=== PATIENT | male | born 1945 | race Caucasian/White ===

== ENCOUNTER → 2016-08-13 | Outpatient (CLI) | payer MEDICARE, OTHER ==
[2016-08-13 14:55] LABS: CREATININE RESULT 1.24 mg/dL (0.52-1.25)
== END ==
LOC: OD 13:06
PROVIDERS: ATTEND Orthopaedic Surgery
DX: M25.511 Pain in right shoulder (principal)
CPT/HCPCS: 36415; 82565

== ENCOUNTER → 2016-08-14 | Outpatient (CLI) | payer MEDICARE, OTHER | LOC: RAD 09:46 | PROVIDERS: ATTEND Orthopaedic Surgery | DX: M89.8X1 Other specified disorders of bone, shoulder (principal) ==

== ENCOUNTER 2016-11-10 08:07 | Day surgery (SDC) | payer MEDICARE, OTHER ==
[2016-10-21 11:26] LABS: HEMOGLOBIN 12.5 g/dL (13.5-17.0); HGB HCT DIFFERENCE 1.5; MEAN CORPUSCULAR HEMOGLOBIN 30.4 pg (27.0-33.4); MEAN CORPUSCULAR HGB CONC 34.7 g/dL (32.0-36.0); MEAN CORPUSCULAR VOLUME 88 fl (80-97); RED BLOOD COUNT 4.11 10^6/uL (4.35-5.55); WHITE BLOOD COUNT 6.5 10^3/uL (4.0-10.5)
[2016-10-21 11:29] LABS: PROTHROMBIN TIME 13.8 SEC (11.4-15.4)
[2016-10-21 11:30] LABS: PARTIAL THROMBOPLASTIN TIME 30.6 SEC (23.5-35.8)
[2016-10-21 11:52] LABS: ANION GAP 13 (5-19); BLOOD UREA NITROGEN 15 mg/dL (7-20); CALCIUM 9.6 mg/dL (8.4-10.2); CARBON DIOXIDE 31 mmol/L (22-30); CHLORIDE 101 mmol/L (98-107); CREATININE RESULT 1.08 mg/dL (0.52-1.25); GLUCOSE 88 mg/dL (75-110); SODIUM 145.4 mmol/L (137-145)
--- NOTE | 2016-10-21 14:19 | EKG REPORT ---
SEVERITY:- ABNORMAL ECG - ATRIAL-VENTRICULAR DUAL-PACED COMPLEXES : Confirmed by: Ananth Dodge MD 21-Oct-2016 14:18:06
[~2016-11-10 08:07] MED LIST: CEFAZOLIN 1 GM/D5W RTU 1 GM/50 ML RTUPB IV PRN; LACTATED RINGERS 1000 ML IV PRN; LIDOCAINE 0.5% INJ-PF (5 MG/ML) 50 ML SDV SUBCUT PRN; LIDOCAINE 1%/EPINEPHRINE INJ 20 ML VIAL ONE; SODIUM BICARBONATE 8.4% INJ 50 MEQ/50 ML DISP.SYRIN ONE
[2016-11-10 09:29] LABS: PROTHROMBIN TIME 14.4 SEC (11.4-15.4)
[2016-11-10 09:30] LABS: PARTIAL THROMBOPLASTIN TIME 31.9 SEC (23.5-35.8)
[2016-11-10] MEDS ORDERED: FENTANYL CITRATE INJ/PF 100 MCG/2 ML AMPUL ONE (10:15)
[2016-11-10] MEDS ORDERED: KETAMINE HCL INJ 500 MG/10 ML VIAL ONE (10:15)
[2016-11-10] MEDS ORDERED: MIDAZOLAM 2 MG/2 ML INJ ONE (10:15)
[2016-11-10] MEDS ORDERED: EPHEDRINE SULFATE INJ 50 MG/1 ML AMPULE ONE (10:16)
[2016-11-10] MEDS ORDERED: ACETAMINOPHEN 100 ML IV ONE (10:16)
[2016-11-10] MEDS ORDERED: PROPOFOL INJ 200 MG/20 ML VIAL IV ONE (10:16)
[2016-11-10] MEDS ORDERED: PROMETHAZINE HCL INJ 25 MG/1 ML VIAL IV PRN ×2 (11:30)
[2016-11-10] MEDS ORDERED: ONDANSETRON HCL INJ/PF 4 MG/2 ML SDV IV PRN (11:30)
[2016-11-10] MEDS ORDERED: FENTANYL CITRATE INJ/PF 100 MCG/2 ML AMPUL IV PRN ×3 (11:30)
[2016-11-10] MEDS ORDERED: DIPHENHYDRAMINE HCL 50 MG/ML VIAL IV PRN (11:30)
[2016-11-10] MEDS ORDERED: MORPHINE SULFATE 10 MG/ML INJ IV PRN (11:30)
[2016-11-10] MEDS ORDERED: MEPERIDINE HCL/PF INJ 25 MG/1 ML DISP.SYRIN IV PRN (11:30)
--- NOTE | 2016-11-10 11:56 | Operative Report ---
Operative Report DATE OF SURGERY: 11/10/16 PREOPERATIVE DIAGNOSIS: Basal cell carcinoma of the right knee POSTOPERATIVE DIAGNOSIS: Same OPERATION: Excision of basal cell carcinoma of the right knee with frozen section margin control and reconstruction with a rotation flap. SURGEON: SARWAT ESPINOZA ANESTHESIA: LMAC TISSUE REMOVED OR ALTERED: Basal cell carcinoma COMPLICATIONS: None ESTIMATED BLOOD LOSS: minimal PROCEDURE: Patient seen and was marked prior to being brought into the operating room. Patient was brought into the operating room and placed on the operating room table in a supine position. Patient was then prepped with a Betadine scrub and Betadine solution and draped in a sterile and aseptic manner. The area was then marked. 12 O'clock was marked towards the pretibial 3 O'clock was marked towards ankle 6:00 was marked towards the posterior calf 9:00 was marked towards the knee The area was then anesthetized with 1% lidocaine with epinephrine and bicarbonate for its anesthetic and hemostatic effects. The area was then excised and marked at 12:00. We had considered a primary closure but this would go against the natural relaxed skin tension lines. A primary closure would be too tight and would have increased chance of dehiscence. This will leave more of a scar so we decided to use a rotation flap reconstruction which would camouflage the scar better and take tension off of the closure so that would be less chances of complications. Then went ahead and outlined the flap and anesthetized it. Then incised the flap and developed a flap maintaining the subdermal plexus. Then we undermined 360 to allow for plate like scarring and minimize trap door deformity. Throughout the case hemostasis was achieved with the bipolar. We then sutured the flap into its new position Using 4-0 Vicryl for the subcutaneous and deep dermis. Skin was closed with a subcuticular stitch using 4-0 PDS with knots being tied on the outside. And 4-0 PDS suture was used for support and placed in the central area of the incision. We then applied tincture benzoin and Steri-Strips followed by a light pressure dressing. Patient was then reversed from anesthesia and taken to the [facility] for recovery. The patient tolerated well. There were no complications. Lesion size was approximately 1.7 x 1.7 please see pathology for actual size. Portions of this note may be dictated using [employer] voice recognition software. Occasional variations and spelling and vocabulary could be possible and are unintentional. Additionally, there is a chance that some errors may not be caught or corrected. Please notify the offer of any discrepancies noted or if any statements are unclear. Subjective: No complaints Objective: Vital signs stable afebrile No bleeding Dressing intact Assessment and plan: Doing well. Elevate the operative site. Resume medications. Take antibiotics for 1 day Follow-up Full instructions were given to the patient and family and they understand Portions of this note may be dictated using [employer] voice recognition software. Occasional variations and spelling and vocabulary could be possible and are unintentional. Additionally, there is a chance that some errors may not be caught or corrected. Please notify the offer of any discrepancies noted or if any statements are unclear.
--- NOTE | 2016-11-10 11:57 | PDOC DISCHARGE SUMMARY ---
Discharge Summary (SDC) - Discharge Final Diagnosis: Basal cell carcinoma of the right knee Date of Surgery: 11/10/16 Condition: Good Treatment or Instructions: Leave the top dressing on for 2 days, then removed. Leave the steri-strip tapes on for 5 days, then removal. Then cleaning wound with peroxide and apply Neosporin/bacitracin 3 times per day. Antibiotics for 1 day, then discontinue. Elevate operative area to decrease swelling. Do not strain, or lift heavy objects. Call for excessive bleeding, increased temperature of 101, uncontrolled pain, or excessive nausea or vomiting. You may reach Dr. Tapia through his office at [phone]. In the event of an emergency after hours, then contact Dr. Tapia through [facility]. Return to the office for a postop check on . The time will be scheduled by the nursing staff of [facility] prior to discharge. Please give the patient a copy of their labs and EKG so they can bring this to their PMD. Thank you Portions of this note may be dictated using [employer] voice recognition software. Occasional variations and spelling and vocabulary could be possible and are unintentional. Additionally, there is a chance that some errors may not be caught or corrected. Please notify the offer of any discrepancies noted or if any statements are unclear. Discharge Diet: As Tolerated Discharge Activity: Activity As Tolerated - Discharge to home
[2016-11-10 14:04] VITALS: BP 115/62
[2016-11-10] MEDS ORDERED: LIDOCAINE 2% INJ-PF (20 MG/ML) 10 ML AMPUL ONE (14:53)
[2016-11-10] MEDS ORDERED: DEXAMETHASONE SOD PHOSPHATE INJ 4 MG/1 ML VIAL ONE (14:53)
[2016-11-10] MEDS ORDERED: METOCLOPRAMIDE HCL INJ/PF 10 MG/2 ML SDV ONE (14:53)
[2016-11-10] MEDS ORDERED: ONDANSETRON HCL INJ/PF 4 MG/2 ML SDV ONE (14:53)
== END 2016-11-10 13:50 | disposition home or self-care (01) ==
LOC: OROUT 08:07
PROVIDERS: ATTEND Plastic Surgery
PROC: 0HBKXZZ Excision of Right Lower Leg Skin, External Approach (ICD-10-PCS; 2016-11-10)
PROC: 0HXKXZZ Transfer Right Lower Leg Skin, External Approach (ICD-10-PCS; principal; 2016-11-10 10:30)
DX: C44.712 Basal cell carcinoma of skin of right lower limb, including hip (principal); F17.210 Nicotine dependence, cigarettes, uncomplicated; M19.90 Unspecified osteoarthritis, unspecified site; Z79.01 Long term (current) use of anticoagulants; Z88.5 Allergy status to narcotic agent; Z79.899 Other long term (current) drug therapy; Z79.82 Long term (current) use of aspirin; Z95.0 Presence of cardiac pacemaker
CPT/HCPCS: 93005; 36415 ×2; 84132; 85027; 85610 ×2; 85730 ×2; 80048; 88305 ×2; 88331 ×2; 93010; 14020; J2250; J0690; J1100; J3010; J3490 ×4; J2765; J2405; J2704; J0131; 400

== ENCOUNTER 2017-05-25 05:28 | Day surgery (SDC) | payer MEDICARE, OTHER ==
[2017-05-11 12:43] LABS: HEMATOCRIT 38.5 % (37.9-51.0); HEMOGLOBIN 13.2 g/dL (13.5-17.0); HGB HCT DIFFERENCE 1.1; MEAN CORPUSCULAR HEMOGLOBIN 30.4 pg (27.0-33.4); MEAN CORPUSCULAR HGB CONC 34.3 g/dL (32.0-36.0); MEAN CORPUSCULAR VOLUME 89 fl (80-97); RED BLOOD COUNT 4.35 10^6/uL (4.35-5.55); RED CELL DISTRIBUTION WIDTH 13.3 % (11.5-14.0); WHITE BLOOD COUNT 7.6 10^3/uL (4.0-10.5)
[2017-05-11 12:49] LABS: PROTHROMBIN TIME 13.5 SEC (11.4-15.4)
[2017-05-11 12:50] LABS: PARTIAL THROMBOPLASTIN TIME 31.8 SEC (23.5-35.8)
[2017-05-11 13:05] LABS: ANION GAP 13 (5-19); BLOOD UREA NITROGEN 17 mg/dL (7-20); CALCIUM 9.9 mg/dL (8.4-10.2); CARBON DIOXIDE 31 mmol/L (22-30); CHLORIDE 103 mmol/L (98-107); CREATININE RESULT 1.28 mg/dL (0.52-1.25); GLUCOSE 100 mg/dL (75-110); POTASSIUM 5.5 mmol/L (3.6-5.0); SODIUM 147.3 mmol/L (137-145)
--- NOTE | 2017-05-11 15:28 | EKG REPORT ---
SEVERITY:- ABNORMAL ECG - VENTRICULAR-PACED COMPLEXES : Confirmed by: Daniela Calderon 11-May-2017 15:27:50
[~2017-05-25 05:28] MED LIST changes: -LIDOCAINE 0.5% INJ-PF (5 MG/ML) 50 ML SDV SUBCUT PRN; -LIDOCAINE 1%/EPINEPHRINE INJ 20 ML VIAL ONE; -SODIUM BICARBONATE 8.4% INJ 50 MEQ/50 ML DISP.SYRIN ONE
[2017-05-25 06:25] LABS: PROTHROMBIN TIME 13.6 SEC (11.4-15.4)
[2017-05-25 06:26] LABS: PARTIAL THROMBOPLASTIN TIME 31.6 SEC (23.5-35.8)
[2017-05-25] MEDS ORDERED: KETAMINE HCL INJ 500 MG/10 ML VIAL ONE (06:49)
[2017-05-25] MEDS ORDERED: MIDAZOLAM 2 MG/2 ML INJ ONE (06:50)
[2017-05-25] MEDS ORDERED: FENTANYL CITRATE INJ/PF 100 MCG/2 ML AMPUL ONE (06:50)
[2017-05-25] MEDS ORDERED: ONDANSETRON HCL INJ/PF 4 MG/2 ML SDV ONE (06:50)
[2017-05-25] MEDS ORDERED: PROPOFOL INJ 200 MG/20 ML VIAL IV ONE (06:51)
[2017-05-25] MEDS ORDERED: LIDOCAINE 1%/EPINEPHRINE INJ 20 ML VIAL ONE (07:08)
[2017-05-25] MEDS ORDERED: LIDOCAINE 2% INJ-PF (20 MG/ML) 10 ML AMPUL ONE (07:08)
[2017-05-25] MEDS ORDERED: SODIUM BICARBONATE 8.4% INJ 50 MEQ/50 ML DISP.SYRIN ONE (07:08)
[2017-05-25] MEDS ORDERED: DIPHENHYDRAMINE HCL 50 MG/ML VIAL IV PRN (08:32)
[2017-05-25] MEDS ORDERED: FENTANYL CITRATE INJ/PF 100 MCG/2 ML AMPUL IV PRN ×3 (08:32)
--- NOTE | 2017-05-25 09:08 | Operative Report ---
Operative Report DATE OF SURGERY: 05/25/17 PREOPERATIVE DIAGNOSIS: Basal cell carcinoma of the right upper antecubital fossa POSTOPERATIVE DIAGNOSIS: Same OPERATION: Excision of basal cell carcinoma of the right antecubital fossa region with frozen section margin control and reconstruction with a rotation flap SURGEON: SARWAT ESPINOZA ANESTHESIA: LMAC TISSUE REMOVED OR ALTERED: Basal cell carcinoma COMPLICATIONS: None ESTIMATED BLOOD LOSS: Minimal PROCEDURE: Patient seen and was marked prior to being brought into the operating room. Patient was brought into the operating room and placed on the operating room table in a supine position. Patient was then prepped with a Betadine scrub and Betadine solution and draped in a sterile and aseptic manner. The area was then marked. 12 O'clock was marked towards the shoulder 3 O'clock was marked towards the radial arm 6:00 was marked towards the wrist 9:00 was marked towards the triceps The area was then anesthetized with 1% lidocaine with epinephrine and bicarbonate for its anesthetic and hemostatic effects. The area was then excised and marked at 12:00. The specimen was sent for frozen section. The results came back that the deep and lateral margins were free. We had considered a primary closure but this would go against the natural relaxed skin tension lines. A primary closure would be too tight and would have increased chance of dehiscence. This will leave more of a scar so we decided to use a rotation flap reconstruction which would camouflage the scar better and take tension off of the closure so that would be less chances of complications. The rotation flap would lead us move away from the band of the antecubital fossa so that there would be no tension or restriction of extension or flexion of the elbow. The design would keep the scar off of the crease and local vicinity. Then we went ahead and outlined the flap and anesthetized it. Then incised the flap and developed a flap maintaining the subdermal plexus. Then we undermined 360 to allow for plate like scarring and minimize trap door deformity. Throughout the case hemostasis was achieved with the bipolar. We then sutured the flap into its new position using 4-0 Vicryl for the subcutaneous and deep dermis. Skin was closed with a running subcuticular suture stitch using oh with knots being tied on the outside. And 4-0 PDS suture was used for support and placed in the central area of the incision. We then applied tincture benzoin and Steri-Strips followed by a light pressure dressing. Patient was then reversed from anesthesia and taken to the [facility] for recovery. The patient tolerated well. There were no complications. Lesion size was approximately 1.1 x 1.1 cm please see pathology for actual size. Portions of this note may be dictated using [employer] voice recognition software. Occasional variations and spelling and vocabulary could be possible and are unintentional. Additionally, there is a chance that some errors may not be caught or corrected. Please notify the offer of any discrepancies noted or if any statements are unclear. Subjective: No complaints Objective: Vital signs stable afebrile No bleeding Dressing intact Assessment and plan: Doing well. Elevate the operative site. Resume medications. Take antibiotics for 1 day Follow-up Full instructions were given to the patient and family and they understand Portions of this note may be dictated using [employer] voice recognition software. Occasional variations and spelling and vocabulary could be possible and are unintentional. Additionally, there is a chance that some errors may not be caught or corrected. Please notify the offer of any discrepancies noted or if any statements are unclear.
--- NOTE | 2017-05-25 09:11 | PDOC DISCHARGE SUMMARY ---
Discharge Summary (SDC) - Discharge Final Diagnosis: Basal cell carcinoma of the right antecubital fossa area Date of Surgery: 05/25/17 Condition: Good Treatment or Instructions: Leave the top dressing on for 2 days, then removed. Leave the steri-strip tapes on for 5 days, then removal. Then cleaning wound with peroxide and apply Neosporin/bacitracin 3 times per day. Antibiotics for 1 day, then discontinue. Elevate operative area to decrease swelling. Do not strain, or lift heavy objects. Call for excessive bleeding, increased temperature of 101, uncontrolled pain, or excessive nausea or vomiting. You may reach Dr. Tapia through his office at [phone]. In the event of an emergency after hours, then contact Dr. Tapia through [facility]. Return to the office for a postop check on . The time will be scheduled by the nursing staff of [facility] prior to discharge. Please give the patient a copy of their labs and EKG so they can bring this to their PMD. Thank you Portions of this note may be dictated using [employer] voice recognition software. Occasional variations and spelling and vocabulary could be possible and are unintentional. Additionally, there is a chance that some errors may not be caught or corrected. Please notify the offer of any discrepancies noted or if any statements are unclear. Referrals: FRANK AGUILAR MD [Primary Care Provider] - Discharge Diet: As Tolerated Discharge Activity: Activity As Tolerated - Keep the arm elevated. Limited activity with the arm. Report the Following to Your Physician Immediately: Unusual Bleeding - Keep arm elevated. Do not do any excessive bending or flexing of the arm. Limited activities with the arm. No heavy lifting.
[2017-05-25 10:59] VITALS: BP 110/65
== END 2017-05-25 10:35 | disposition home or self-care (01) ==
LOC: OROUT 05:28
PROVIDERS: ATTEND Plastic Surgery
PROC: 0HBDXZZ Excision of Right Lower Arm Skin, External Approach (ICD-10-PCS; 2017-05-25)
PROC: 0HXDXZZ Transfer Right Lower Arm Skin, External Approach (ICD-10-PCS; principal; 2017-05-25 07:30)
DX: C44.612 Basal cell carcinoma of skin of right upper limb, including shoulder (principal); M19.90 Unspecified osteoarthritis, unspecified site; I25.10 Atherosclerotic heart disease of native coronary artery without angina pectoris; I10 Essential (primary) hypertension; Z79.01 Long term (current) use of anticoagulants; Z88.5 Allergy status to narcotic agent; Z79.82 Long term (current) use of aspirin; Z79.899 Other long term (current) drug therapy; Z79.02 Long term (current) use of antithrombotics/antiplatelets; Z79.51 Long term (current) use of inhaled steroids; Z79.891 Long term (current) use of opiate analgesic; Z87.891 Personal history of nicotine dependence; I25.2 Old myocardial infarction; Z86.718 Personal history of other venous thrombosis and embolism; Z95.0 Presence of cardiac pacemaker
CPT/HCPCS: 93005; 36415 ×2; 84132; 85027; 85610 ×2; 85730 ×2; 80048; 88305 ×2; 88331 ×2; 93010; 14020; J2250; J0690; J3010; J3490 ×4; J2405; J2704; 400

== ENCOUNTER 2017-11-30 15:23 | Day surgery (SDC) | payer MEDICARE, OTHER ==
[~2017-11-30 15:23] MED LIST changes: -CEFAZOLIN 1 GM/D5W RTU 1 GM/50 ML RTUPB IV PRN; +DIPHENHYDRAMINE HCL 50 MG/ML VIAL ONE; +EPINEPHRINE INJ 1 MG/10 ML DISP.SYRIN ONE; +FENTANYL CITRATE INJ/PF 100 MCG/2 ML AMPUL ONE; +FLUMAZENIL INJ 0.5 MG/5 ML VIAL ONE; +GLUCAGON,HUMAN RECOMB 1 MG INJ ONE; -LACTATED RINGERS 1000 ML IV PRN; +NALOXONE HCL INJ/PF 0.4 MG/1 ML SDV ONE
[2017-11-30] MEDS: MIDAZOLAM 2 MG/2 ML INJ ONE ×2 (16:28→17:12)
[2017-11-30] MEDS ORDERED: SIMETHICONE 80 MG TAB.CHEW PO PRN (16:51)
[2017-11-30] MEDS ORDERED: ONABOTULINUMTOXINA INJ/PF 100 UNIT SDV IM ONE (17:15)
--- NOTE | 2017-11-30 18:26 | Operative Report ---
Operative Report DATE OF SURGERY: 11/30/17 Operative Report: Pre-op diagnosis: Dysphagia with history of achalasia Post-op diagnosis: 1. 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 The upper endoscope was inserted into the esophagus under direct vision and advanced into the stomach. The duodenum was entered and examined to the second part. Endoscope was then slowly pulled out of the patient as the mucosa was examined into details. Patient tolerated procedure well. Findings Esophagus: There was muscular tightening at the gastroesophageal junction from his previously diagnosed achalasia. No erosions was identified Antrum: There was mild erythema with a small 2-3 mm ulcer noted in the antrum. Body: Normal Fundus: Normal Duodenum first part: Normal Duodenum second part: Normal Plan: Await pathology. Start Pantoprazole 40 mg daily OPERATION: .
[2017-11-30 18:36] VITALS: BP 107/60
== END 2017-11-30 18:35 | disposition home or self-care (01) ==
LOC: END 15:23
PROVIDERS: ATTEND Internal Medicine Gastroenterology
DX: K22.0 Achalasia of cardia (principal); K25.9 Gastric ulcer, unspecified as acute or chronic, without hemorrhage or perforation; I25.10 Atherosclerotic heart disease of native coronary artery without angina pectoris; Z88.5 Allergy status to narcotic agent
CPT/HCPCS: 43236; 43239; 88342 ×2; 88305 ×2; J2250; J3010; J0585; J0171; J1200; J1610; J2310; J3490

== ENCOUNTER 2018-12-27 15:51 | Day surgery (SDC) | payer MEDICARE, OTHER ==
[2018-12-27] MEDS ORDERED: ONABOTULINUMTOXINA INJ/PF 100 UNIT SDV IM ONE (16:00)
[2018-12-27] MEDS ORDERED: ONDANSETRON HCL INJ/PF 4 MG/2 ML SDV ONE (16:06)
[2018-12-27] MEDS ORDERED: DIPHENHYDRAMINE HCL 50 MG/ML VIAL ONE (16:06)
[2018-12-27] MEDS ORDERED: GLUCAGON,HUMAN RECOMB 1 MG INJ ONE (16:07)
[2018-12-27] MEDS ORDERED: EPINEPHRINE INJ 1 MG/10 ML DISP.SYRIN ONE (16:07)
[2018-12-27] MEDS ORDERED: FLUMAZENIL INJ 0.5 MG/5 ML VIAL ONE (16:07)
[2018-12-27] MEDS ORDERED: FENTANYL CITRATE INJ/PF 100 MCG/2 ML AMPUL ONE (16:07)
[2018-12-27] MEDS ORDERED: NALOXONE HCL INJ/PF 0.4 MG/1 ML SDV ONE (16:07)
[2018-12-27] MEDS ORDERED: MIDAZOLAM 2 MG/2 ML INJ ONE (16:07)
--- NOTE | 2018-12-27 18:02 | Operative Report ---
Operative Report DATE OF SURGERY: 12/27/18 Operative Report: Pre-op diagnosis: History of achalasia and dysphagia Post-op diagnosis: 1. GE junction stricture 2. Duodenal ulcer 3. Antral gastritis Surgery: Esophagogastroduodenoscopy with biopsy and Botox injection Medications: Versed 2mg Fentanyl 50 Mcg IV push Tissue removed: Antral and gastric body biopsy for pathology Procedure: After informed consent obtained from patient, the throat was sprayed with Hurricane and conscious sedation was achieved. The upper endoscope was inserted into the esophagus under direct vision and advanced into the stomach. The duodenum was entered and examined to the second part. Endoscope was then slowly pulled out of the patient as the mucosa was examined into details. Patient tolerated procedure well. Findings Esophagus: There was muscular stricture at the GE junction with no erosions. There was some contraction noted in the body of the esophagus. 4 quadrants at the GE junction were injected with Botox Antrum: Mild erythema Body: Normal Fundus: Normal Duodenum first part: 5 mm ulcer was noted at the duodenal bulb. Duodenum second part: Normal Plan: Await pathology. Resume PPI OPERATION: .
[2018-12-27 18:27] VITALS: BP 106/58
== END 2018-12-27 18:25 | disposition home or self-care (01) ==
LOC: END 15:51
PROVIDERS: ATTEND Internal Medicine Gastroenterology
PROC: 0D748ZZ Dilation of Esophagogastric Junction, Via Natural or Artificial Opening Endoscopic (ICD-10-PCS; principal; 2018-12-27 16:50)
PROC: 3E0G8GC Introduction of Other Therapeutic Substance into Upper GI, Via Natural or Artificial Opening Endoscopic (ICD-10-PCS; 2018-12-27 16:50)
DX: K22.2 Esophageal obstruction (principal); R13.10 Dysphagia, unspecified
CPT/HCPCS: 88305 ×2; 43249; 43236; J2250; J3010; J0585; J0171; J1200; J1610; J2310; J2405; J3490

== ENCOUNTER → 2019-01-05 | Outpatient (CLI) | payer MEDICARE, OTHER ==
--- NOTE | 2019-01-05 11:06 | RADIOLOGY REPORT (SQ) ---
EXAM DESCRIPTION: CT CHEST WITH COMPLETED DATE/TIME: 01/05/2019 9:18 am REASON FOR STUDY: LUNG CA (C34.11) C34.11 MALIGNANT NEOPLASM OF UPPER LOBE, RIGHT BRONCHUS OR L COMPARISON: CT chest 09/17/2014, 03/05/2014 TECHNIQUE: CT scan of the chest performed using helical scanning technique with dynamic intravenous contrast injection. Images reviewed with lung, soft tissue and bone windows. Reconstructed coronal and sagittal MPR and MIP images reviewed. All images stored on PACS. All CT scanners at this facility use dose modulation, iterative reconstruction, and/or weight based d osing when appropriate to reduce radiation dose to as low as reasonably achievable (ALARA). [facility]: Dose Right [facility]: CareDose [facility]: Dose Right [facility]: Teradose 4D [facility]: Hatsize CONTRAST TYPE AND DOSE: contrast/concentration: Isovue 350.00 mg/ml; Total Contrast Delivered: 80.0 ml; Total Saline Delivered: 22.5 ml RENAL FUNCTION: Creatinine 1.2 RADIATION DOSE: CT Rad equipment meets quality standard of care and radiation dose reduction techniq ues were employed. CTDIvol: 6.2 mGy. DLP: 254 mGy-cm. . LIMITATIONS: None. FINDINGS: LUNGS AND PLEURA: Post right upper and middle lobectomy. Remainder of the lungs exhibit d iffuse hyperinflation and hyperlucency from obstructive disease. No worrisome pulmonary nodules. No pleural effusion or pneumothorax. HILAR AND MEDIASTINAL STRUCTURES: No identified masses or abnormal nodes. Esophagus is diffusely markedly abnormal. There is diffuse marked wall thickening and diffuse dilata tion of the esophagus with air-fluid levels from gastroesophageal reflux. Diffuse esophagitis or josh or could be present. HEART AND VASCULAR STRUCTURES: No aneurysm or dissection. No central pulmonary emboli. No pericardi al effusion. There is cardiomegaly without pericardial effusion. Radiopaque LAD coronary stents. HARDWARE: Right-sided central line tip in the superior vena cava. Left-sided pacemaker. Lower cervi evelio fusion. UPPER ABDOMEN: 3.6 cm cyst left lobe liver. Abdominal aorta stent graft at the bottom most edge of t he field of view. THYROID AND OTHER SOFT TISSUES: No masses. No adenopathy. BONES: Right rib thoracotomy defect between the 4th and 5th ribs. OTHER: No other significant finding. IMPRESSION: Post right upper and middle lobectomy. No hilar or mediastinal adenopathy. Diffusely abnormal esophagus with wall thickening and air-fluid levels TECHNICAL DOCUMENTATION: JOB ID: [id number] Quality ID # [id number]: Final reports with documentation of one or more dose reduction techniques (e.g., Au tomated exposure control, adjustment of the mA and/or kV according to patient size, use of iterative reconstruction technique) 2010 [employer]- All Rights Reserved Reading location - IP/workstation name: [email or web address]
== END ==
LOC: RAD 08:33
PROVIDERS: ATTEND Internal Medicine
DX: C34.11 Malignant neoplasm of upper lobe, right bronchus or lung (principal)
CPT/HCPCS: 71260; 82565

== ENCOUNTER 2019-02-02 11:36 | Emergency (ER) | payer MEDICARE, OTHER ==
--- NOTE | 2019-02-02 12:09 | ER Document Report ---
ED Medical Screen (RME) - General Chief Complaint: Dizziness Stated Complaint: SHOULDER PAIN Time Seen by Provider: 02/02/19 11:53 Primary Care Provider: CATERINA CHEUNG MD [Primary Care Provider] - Follow up as needed Notes: Patient is a 73-year-old male with history of pacemaker insertion, cancer currently undergoing chemotherapy presents to the emergency department for syncopal episode last evening. Patient states he was urinating on the toilet when he attempted to stand up got lightheaded and dizzy and fell to the ground. Patient states he feels as though he remembers the entire event but the states "he was staggering and not making any sense." states she attempted to call 911 last evening but the patient told her not to. Patient states the only reason he is in the emergency room at this time is because his "made me." Patient's denying any lightheadedness, dizziness, weakness, chest pain at this point time. GENERAL: Alert, interacts well. No acute distress. LUNGS: Clear to auscultation bilaterally, no wheezes, rales, or rhonchi. No respiratory distress. I have greeted and performed a rapid initial assessment of this patient. A comprehensive ED assessment and evaluation of the patient, analysis of test results and completion of the medical decision making process will be conducted by additional ED providers. I have specifically instructed the patient or family members with the patient to immediately return to any nursing staff should anything change in the patient's condition or with their chief complaint. This medical record was dictated with voice recognizing software. There may be grammatical, syntax errors that are unintended. TRAVEL OUTSIDE OF THE [place] IN LAST 30 DAYS: No - Related Data Allergies/Adverse Reactions: codeine [Codeine] Allergy (Severe, Verified 12/27/18 15:24) Chest pain Past Medical History - Social History Chew tobacco use (# tins/day): Yes Frequency of alcohol use: None Drug Abuse: None - Past Medical History Cardiac Medical History: Reports: Hx Heart Attack - 2005, STENTS X2 Denies: Hx Coronary Artery Disease, Hx Hypertension - "It stays low" Pulmonary Medical History: Reports: Hx COPD - "They say I do but I breathe good", Hx Pneumonia Denies: Hx Asthma, Hx Bronchitis Neurological Medical History: Denies: Hx Cerebrovascular Accident, Hx Seizures Renal/ Medical History: Denies: Hx Peritoneal Dialysis GI Medical History: Reports: Hx Gastroesophageal Reflux Disease Musculoskeltal Medical History: Reports Hx Arthritis - R SHOULDER Past Surgical History: Reports: Hx Cardiac Catheterization - 3X stents placed, Hx Cardiac Surgery - pacemaker placed LACW, Hx Orthopedic Surgery - back, NECK X 3 - Immunizations Hx Diphtheria, Pertussis, Tetanus Vaccination: No History of Influenza Vaccine for 04/2017 - 09/2017 Season: Yes Influenza Administration Date for 04/2017 - 09/2017 Season: 04/11/18 Physical Exam - Vital signs Vitals: Temp Pulse Resp BP Pulse Ox 97.8 F 70 18 91/47 L 95 02/02/19 11:47 02/02/19 11:47 02/02/19 11:47 02/02/19 11:47 02/02/19 11:47 Course - Vital Signs Vital signs: Temp Pulse Resp BP Pulse Ox 97.8 F 70 18 91/47 L 95 02/02/19 11:47 02/02/19 11:47 02/02/19 11:47 02/02/19 11:47 02/02/19 11:47 Doctor's Discharge - Discharge Referrals: CATERINA CHEUNG MD [Primary Care Provider] - Follow up as needed
[2019-02-02 12:45] LABS: ABSOLUTE LYMPHOCYTES (AUTO) 0.4 10^3/uL (0.5-4.7); ABSOLUTE MONOCYTES (AUTO) 0.1 10^3/uL (0.1-1.4); ABSOLUTE NEUT (AUTO) 4.2 10^3/uL (1.7-8.2); BASOPHILS % (AUTO) 0.8 % (0-2); EOSINOPHILS % (AUTO) 0.2 % (0-6); HEMATOCRIT 29.8 % (37.9-51.0); HEMOGLOBIN 9.9 g/dL (13.5-17.0); LYMPHOCYTES % (AUTO) 7.4 % (13-45); MEAN CORPUSCULAR HEMOGLOBIN 30.4 pg (27.0-33.4); MEAN CORPUSCULAR HGB CONC 33.3 g/dL (32.0-36.0); MEAN CORPUSCULAR VOLUME 92 fl (80-97); MONOCYTES % (AUTO) 2.1 % (3-13); RED BLOOD COUNT 3.26 10^6/uL (4.35-5.55); RED CELL DISTRIBUTION WIDTH 16.6 % (11.5-14.0); SEGMENTED NEUTROPHILS % (AUTO) 89.5 % (42-78); TOTAL CELLS COUNTED % (AUTO) 100 %; WHITE BLOOD COUNT 4.7 10^3/uL (4.0-10.5)
[2019-02-02 13:01] LABS: ALANINE AMINOTRANSFERASE 29 U/L (21-72); ALBUMIN 4.2 g/dL (3.5-5.0); ALKALINE PHOSPHATASE 57 U/L (38-126); ANION GAP 9 (5-19); ASPARTATE AMINO TRANSFERASE 44 U/L (17-59); BILIRUBIN,DIRECT 0.3 mg/dL (0.0-0.4); BILIRUBIN,TOTAL 1.2 mg/dL (0.2-1.3); BLOOD UREA NITROGEN 25 mg/dL (7-20); CARBON DIOXIDE 31 mmol/L (22-30); CHLORIDE 97 mmol/L (98-107); GLUCOSE 97 mg/dL (75-110); POTASSIUM 4.2 mmol/L (3.6-5.0); TOTAL PROTEIN 6.9 g/dL (6.3-8.2)
[2019-02-02 13:16] LABS: PLATELET COUNT 280 10^3/uL (150-450)
[2019-02-02 13:43] LABS: APPEARANCE,URINE CLEAR; BILIRUBIN,URINE NEGATIVE (NEGATIVE); COLOR,URINE YELLOW; GLUCOSE, URINE NEGATIVE (NEGATIVE); KETONES,URINE NEGATIVE (NEGATIVE); LEUKOCYTE ESTERASE,URINE NEGATIVE (NEGATIVE); NITRITE,URINE NEGATIVE (NEGATIVE); PROTEIN,URINE NEGATIVE (NEGATIVE); URINE SPECIFIC GRAVITY 1.011; UROBILINOGEN,URINE NEGATIVE mg/dL (<2.0)
--- NOTE | 2019-02-02 14:00 | RADIOLOGY REPORT (SQ) ---
EXAM DESCRIPTION: CT HEAD WITHOUT COMPLETED DATE/TIME: 02/02/2019 1:43 pm REASON FOR STUDY: Syncope COMPARISON: None. TECHNIQUE: Axial images acquired through the brain without intravenous contrast. Images reviewed wi th bone, brain and subdural windows. Additional sagittal and coronal reconstructions were generated. Images stored on PACS. All CT scanners at this facility use dose modulation, iterative reconstruction, and/or weight based d osing when appropriate to reduce radiation dose to as low as reasonably achievable (ALARA). [facility]: Dose Right [facility]: CareDose [facility]: Dose Right [facility]: Teradose 4D [facility]: BringIt RADIATION DOSE: CT Rad equipment meets quality standard of care and radiation dose reduction techniq ues were employed. CTDIvol: 53.2 mGy. DLP: 1044 mGy-cm. mGy. LIMITATIONS: None. FINDINGS: VENTRICLES: Normal size and contour. CEREBRUM: No masses. No hemorrhage. No midline shift. No evidence for acute infarction. Normal gra y/white matter differentiation. No areas of low density in the white matter. CEREBELLUM: No masses. No hemorrhage. No alteration of density. No evidence for acute infarction. EXTRAAXIAL SPACES: No fluid collections. No masses. ORBITS AND GLOBE: No intra- or extraconal masses. Normal contour of globe without masses. CALVARIUM: No fracture. PARANASAL SINUSES: No fluid or mucosal thickening. SOFT TISSUES: No mass or hematoma. OTHER: No other significant finding. IMPRESSION: NORMAL BRAIN CT WITHOUT CONTRAST. EVIDENCE OF ACUTE STROKE: NO. COMMENT: Quality ID # 436: Final reports with documentation of one or more dose reduction techniques (e.g., Automated exposure control, adjustment of the mA and/or kV according to patient size, use of iterative reconstruction technique) TECHNICAL DOCUMENTATION: JOB ID: [id number] [employer]- All Rights Reserved Reading location - IP/workstation name: [email or web address]
--- NOTE | 2019-02-02 14:09 | RADIOLOGY REPORT (SQ) ---
EXAM DESCRIPTION: CHEST SINGLE VIEW COMPLETED DATE/TIME: 02/02/2019 1:55 pm REASON FOR STUDY: syncpoe COMPARISON: 09/18/2014 EXAM PARAMETERS: NUMBER OF VIEWS: One view. TECHNIQUE: Single frontal radiographic view of the chest acquired. RADIATION DOSE: NA LIMITATIONS: None. FINDINGS: LUNGS AND PLEURA: No opacities, masses or pneumothorax. No pleural effusion. MEDIASTINUM AND HILAR STRUCTURES: No masses. Contour normal. HEART AND VASCULAR STRUCTURES: Cardiomegaly with left chest multi lead pacer. BONES: No acute findings. HARDWARE: None in the chest. OTHER: Right chest port catheter. IMPRESSION: Cardiomegaly without acute abnormality of the lungs in AP projection. TECHNICAL DOCUMENTATION: JOB ID: [id number] [employer]- All Rights Reserved Reading location - IP/workstation name: [email or web address]
--- NOTE | 2019-02-02 14:38 | ER Document Report ---
ED General - General Chief Complaint: Dizziness Stated Complaint: SHOULDER PAIN Time Seen by Provider: 02/02/19 11:53 Primary Care Provider: CATERINA CHEUNG MD [ACTIVE STAFF] - Follow up as needed Notes: Patient says that last night he urinated in the commode while sitting on it and then got up and fell to the floor. He hit his right shoulder and right frontal scalp area. His found him on the floor and he was confused and could not get up. She and a brother helped him patient stand, but he was staggering and seemed confused for about 30 minutes. wanted to bring him to the emergency department, but the patient refused last night, but agreed to come today. He has not been sick in any way recently except he noticed some chills yesterday. Did not have any fever, however. Denies any cough or cold or chest congestion or shortness of breath. Denies any chest pains. Patient's past history is significant and that he had surgery for lung cancer about 3 years ago. Subsequently, he has been on radiation treatments daily and chemotherapy weekly with Dr. Cheung. Patient's primary care doctor is Dr. Ho and Cheikh. His mill recorder is . He has had coronary artery stenting in the past. TRAVEL OUTSIDE OF THE [place] IN LAST 30 DAYS: No - Related Data Allergies/Adverse Reactions: codeine [Codeine] Allergy (Severe, Verified 12/27/18 15:24) Chest pain Past Medical History - Social History Smoking Status: Unknown if Ever Smoked Chew tobacco use (# tins/day): Yes Frequency of alcohol use: None Drug Abuse: None Family History: Reviewed & Not Pertinent Patient has suicidal ideation: No Patient has homicidal ideation: No - Past Medical History Cardiac Medical History: Reports: Hx Heart Attack - 2004, STENTS X2, Hx Hypertension - But patient says his blood pressure has run in the 90s and recent past. Pulmonary Medical History: Reports: Hx COPD - "They say I do but I breathe good", Hx Pneumonia Neurological Medical History: Denies: Hx Cerebrovascular Accident Endocrine Medical History: Denies: Hx Diabetes Mellitus Type 1, Hx Diabetes Mellitus Type 2 GI Medical History: Reports: Hx Gastroesophageal Reflux Disease Musculoskeletal Medical History: Reports Hx Arthritis - R SHOULDER Past Surgical History: Reports: Hx Cardiac Catheterization - 3X stents placed, Hx Cardiac Surgery - pacemaker placed LACW, Hx Orthopedic Surgery - back, NECK X 3 - Immunizations Hx Diphtheria, Pertussis, Tetanus Vaccination: No Hx Pneumococcal Vaccination: 07/12/10 Review of Systems - Review of Systems Notes: REVIEW OF SYSTEMS: CONSTITUTIONAL : Denies fever. EENT: Denies eye, ear, nose or mouth or throat pain or other symptoms. CARDIOVASCULAR: Denies chest pain. RESPIRATORY: Denies cough, chest congestion, or shortness of breath. GASTROINTESTINAL: Denies abdominal pain or nausea, vomiting, or diarrhea. GENITOURINARY: Denies difficulty or painful urinating, urinary frequency, blood in urine. MUSCULOSKELETAL: Denies back or neck pain. Denies joint pain or swelling. SKIN: Denies rash or skin lesions. NEUROLOGICAL: See HPI. Denies headache. Denies sensory loss or motor deficits. ALL OTHER SYSTEMS REVIEWED AND NEGATIVE. Physical Exam - Vital signs Vitals: Temp Pulse Resp BP Pulse Ox 97.8 F 70 18 91/47 L 95 02/02/19 11:47 02/02/19 11:47 02/02/19 11:47 02/02/19 11:47 02/02/19 11:47 Interpretation: Hypotensive - Patient says his systolic blood pressure normally runs in the 90s. Notes: PHYSICAL EXAMINATION: GENERAL: Well-appearing, in no acute distress. HEAD: Atraumatic, normocephalic. EYES: Pupils equal round and reactive to light, extraocular movements intact. ENT: oropharynx clear without exudates. Moist mucous membranes. NECK: Normal range of motion, supple. LUNGS: Breath sounds clear and equal bilaterally. HEART: Regular rate and rhythm without murmurs. ABDOMEN: Soft, nontender. No guarding or rebound. No masses. BACK: No tenderness throughout entire back. EXTREMITIES: Normal range of motion without pain. NEUROLOGICAL: Normal speech, normal gait. Normal sensory, motor, and reflex exams. Awake, alert, and oriented x3. Cranial nerves normal. PSYCH: Normal mood, normal affect. SKIN: Warm, dry, no rashes. Course - Re-evaluation Re-evalutation: 02/02/19 19:55 Spoke with this patient's oncologist, Dr. Cheung. Went over our findings and the fact that the patient might be a little we attempted to start an IV, but were unsuccessful and the patient finally said to stop, that he did not want the IV and was going to go home and drink a lot of fluids. Patient's work-up is essentially normal. Since the patient had his episode last evening, he is almost been observed for subsequent 20-hour or so follow-up. His pacer seems to be working well and all of his lab tests are unremarkable. Hemoglobin is 9.9 and I was able to verify by calling this patient's local oncologist office that his hemoglobin was 8.7 on January 30. We believe the patient can be discharged home to follow-up with his other doctors. 02/02/19 19:59 - Vital Signs Vital signs: Temp Pulse Resp BP Pulse Ox 99 F 72 16 104/56 L 96 02/02/19 17:07 02/02/19 17:07 02/02/19 17:07 02/02/19 17:07 02/02/19 17:07 - Laboratory Result Diagrams: 02/02/19 12:10 02/02/19 12:10 Laboratory results interpreted by me: 02/02/19 02/02/19 12:10 12:10 RBC 3.26 L Hgb 9.9 L Hct 29.8 L RDW 16.6 H Seg Neutrophils % 89.5 H Lymphocytes % 7.4 L Monocytes % 2.1 L Absolute Lymphocytes 0.4 L Sodium 136.9 L Chloride 97 L Carbon Dioxide 31 H BUN 25 H Discharge - Discharge Clinical Impression: Syncope, Anemia Condition: Stable Disposition: HOME, SELF-CARE Additional Instructions: NEAR SYNCOPAL EPISODE: Syncope or near syncope (fainting or near-fainting) can occur from many different health problems. Or it can be a simple fainting spell requiring no treatment. It is safe for you to go home, but further evaluation will likely be necessary. Your work-up may include tests for internal bleeding, heart disease, medication problems, or near-strokes. Tests are not always required, however, depending on the nature of your problem. The warning signs of an impending faint include: dizziness, lightheadedness, nausea, hot flashes, tingling, and weakness. If this happens, lay down and put your feet up, then wait until all of these symptoms have passed before standing up again. If these episodes become recurrent, or if you develop chest pain, heart palpitations, mental confusion, blurred vision, or headache, then you should call the physician, or go to the emergency room. ALTERED MENTAL STATUS: An altered mental status is a change in the normal functioning of the brain. This alteration of function can range from minor decreased brain function with some forgetfulness and confusion to complete loss of consciousness and coma. There are many possible causes of an altered mental status and include brain injuries such as trauma or strokes, problems with oxygen supply to the brain, fever and infections of the brain and/or elsewhere in the body, metabolic abnormalities such as low or high blood sugar, overdoses or excessive medication ingestion, and mental and psychiatric illnesses. Sometimes the altered mental status resolves and a definite cause is not determined. If a cause for your altered mental status was found, it has likely been corrected. Your evaluation has not shown any condition that requires that you be admitted to the hospital. It is believed that you are safe to lelave and return to your home. If you have a return of your symptoms, you should return for re-evaluation. NORMAL EXAM AND WORKUP: At this time, except for your salt level being slightly low, your examination and workup show no significant abnormality. No significant abnormal physical findings were noted. All laboratory, EKG, and imaging (x-ray, CT scans, ultrasound) studies that were ordered show no significant abnormality. Although your examination and all studies that were ordered showed no significant abnormal finding, there are no examinations and no studies that are 100% accurate. There is always the possibility that some abnormality could exist and not be detected with physical examination or within the limits and capabilities of laboratory and other studies. You should return or follow up as you were instructed on your visit today for further evaluation if your symptoms do not resolve. Anemia You have been found to have a significant anemia (a lower than normal amount of red blood cells). Anemia can be due to iron deficiency, vitamin deficiency, abnormal bleeding, or internal diseases. Usually, further tests are necessary to find the exact cause of the anemia. The most common cause of anemia is iron deficiency, often brought on by blood loss. This can be treated with iron supplements. If this appears to be the most likely cause, iron tablets may be prescribed even before all tests are comp lete. Contact the doctor at once if you note black or tarry-looking stools, bloody vomiting, shortness of breath, chest pain, or faintness. FOLLOW-UP CARE: If you have been referred to a physician for follow-up care, call the physicians office for an appointment as you were instructed or within the next two days. If you experience worsening or a significant change in your symptoms, notify the physician immediately or return to the Emergency Department at any time for re-evaluation. Referrals: CATERINA CHEUNG MD [ACTIVE STAFF] - Follow up as needed
[2019-02-02] MEDS ORDERED: NORMAL SALINE 500 ML IV ONE (14:58)
[2019-02-02 17:07] VITALS: BP 104/56
--- NOTE | 2019-02-02 20:40 | EKG REPORT ---
SEVERITY:- ABNORMAL ECG - ATRIAL-VENTRICULAR DUAL-PACED COMPLEXES : Confirmed by: Daniela Calderon 02-Feb-2019 20:39:46
== END 2019-02-02 17:17 | disposition home or self-care (01) ==
LOC: ER 11:36
DX: R55 Syncope and collapse (principal); D64.9 Anemia, unspecified; M25.511 Pain in right shoulder; R42 Dizziness and giddiness; Z88.6 Allergy status to analgesic agent; I25.2 Old myocardial infarction; I10 Essential (primary) hypertension
CPT/HCPCS: 36415; 70450; 71045; 80053; 81001; 84484; 85025; 93005; 93010; 99284

== ENCOUNTER 2019-04-08 09:36 | Emergency (ER) | payer MEDICARE, OTHER ==
--- NOTE | 2019-04-08 10:14 | ER Document Report ---
ED Medical Screen (RME) - General Stated Complaint: FEVER Time Seen by Provider: 04/08/19 10:00 Mode of Arrival: Medic Information source: Patient, Relative Notes: Patient presents from home after came into his room and found him on the floor. suspects that he was only on the floor for a few minutes and had fallen attempting to get up. Patient with large area of bruising to sacral area. does report that there has been some occasional confusion as well as gait abnormalities for some time. Patient is being treated for metastatic lung cancer with chemotherapy and radiation. EMS reported that patient had a fever of 102 at home and gave Tylenol. Patient denies any complaints at present. hx: A. fib, AAA with surgical repair, hypertension, lung cancer, CAD, pacemaker defibrillator I have greeted and performed a rapid initial assessment of this patient. A comprehensive ED assessment and evaluation of the patient, analysis of test results and completion of the medical decision making process will be conducted by additional ED providers. TRAVEL OUTSIDE OF THE [place] IN LAST 30 DAYS: No - Related Data Allergies/Adverse Reactions: codeine [Codeine] Allergy (Severe, Verified 12/27/18 15:24) Chest pain Past Medical History - Past Medical History Cardiac Medical History: Reports: Hx Heart Attack - 2005, STENTS X2, Hx Hypertension - But patient says his blood pressure has run in the 90s and recent past. Denies: Hx Coronary Artery Disease Pulmonary Medical History: Reports: Hx COPD - "They say I do but I breathe good", Hx Pneumonia Denies: Hx Asthma, Hx Bronchitis Neurological Medical History: Denies: Hx Cerebrovascular Accident, Hx Seizures Endocrine Medical History: Denies: Hx Diabetes Mellitus Type 1, Hx Diabetes Mellitus Type 2 Renal/ Medical History: Denies: Hx Peritoneal Dialysis GI Medical History: Reports: Hx Gastroesophageal Reflux Disease Musculoskeltal Medical History: Reports Hx Arthritis - R SHOULDER Past Surgical History: Reports: Hx Cardiac Catheterization - 3X stents placed, Hx Cardiac Surgery - pacemaker placed LACW, Hx Orthopedic Surgery - back, NECK X 3 - Immunizations Hx Diphtheria, Pertussis, Tetanus Vaccination: No History of Influenza Vaccine for 04/2017 - 09/2017 Season: Yes Influenza Administration Date for 04/2017 - 09/2017 Season: 04/11/18 Physical Exam - General General appearance: Alert Notes: Ecchymosis to sacral area, patient awake alert, respirations unlabored Course - Laboratory Result Diagrams: 04/08/19 09:06 04/08/19 09:06
[2019-04-08 10:19] LABS: INTERNATIONAL RATION (INR) 1.07; PROTHROMBIN TIME 13.9 SEC (11.4-15.4)
[2019-04-08 10:21] LABS: HEMATOCRIT 23.4 % (37.9-51.0); HEMOGLOBIN 8.1 g/dL (13.5-17.0); MEAN CORPUSCULAR HEMOGLOBIN 32.9 pg (27.0-33.4); MEAN CORPUSCULAR HGB CONC 34.5 g/dL (32.0-36.0); MEAN CORPUSCULAR VOLUME 95 fl (80-97); RED BLOOD COUNT 2.45 10^6/uL (4.35-5.55); RED CELL DISTRIBUTION WIDTH 19.1 % (11.5-14.0); WHITE BLOOD COUNT 3.6 10^3/uL (4.0-10.5)
[2019-04-08 10:26] LABS: PLATELET COUNT 93 10^3/uL (150-450)
[2019-04-08 10:41] LABS: ALKALINE PHOSPHATASE 83 U/L (38-126); ANION GAP 8 (5-19); ASPARTATE AMINO TRANSFERASE 29 U/L (17-59); BILIRUBIN,DIRECT 0.1 mg/dL (0.0-0.4); BILIRUBIN,TOTAL 0.6 mg/dL (0.2-1.3); BLOOD UREA NITROGEN 11 mg/dL (7-20); CALCIUM 8.8 mg/dL (8.4-10.2); CARBON DIOXIDE 31 mmol/L (22-30); CHLORIDE 101 mmol/L (98-107); CREATINE KINASE 39 U/L (55-170); GLUCOSE 91 mg/dL (75-110); POTASSIUM 4.1 mmol/L (3.6-5.0); TOTAL PROTEIN 6.8 g/dL (6.3-8.2)
--- NOTE | 2019-04-08 10:59 | RADIOLOGY REPORT (SQ) ---
EXAM DESCRIPTION: CT HEAD WITHOUT COMPLETED DATE/TIME: 04/08/2019 10:50 am REASON FOR STUDY: falls, hx lung cancer COMPARISON: 02/02/2019 TECHNIQUE: Axial images acquired through the brain without intravenous contrast. Images reviewed wi th bone, brain and subdural windows. Additional sagittal and coronal reconstructions were generated. Images stored on PACS. All CT scanners at this facility use dose modulation, iterative reconstruction, and/or weight based d osing when appropriate to reduce radiation dose to as low as reasonably achievable (ALARA). [facility]: Dose Right [facility]: CareDose [facility]: Dose Right [facility]: Teradose 4D [facility]: Smart StackAdapt RADIATION DOSE: CT Rad equipment meets quality standard of care and radiation dose reduction techniq ues were employed. CTDIvol: 53.2 mGy. DLP: 1070 mGy-cm. mGy. LIMITATIONS: None. FINDINGS: VENTRICLES: Normal size and contour. CEREBRUM: No masses. No hemorrhage. No midline shift. No evidence for acute infarction. Normal gra y/white matter differentiation. No areas of low density in the white matter. CEREBELLUM: No masses. No hemorrhage. No alteration of density. No evidence for acute infarction. EXTRAAXIAL SPACES: No fluid collections. No masses. ORBITS AND GLOBE: No intra- or extraconal masses. Normal contour of globe without masses. CALVARIUM: No fracture. PARANASAL SINUSES: No fluid or mucosal thickening. SOFT TISSUES: No mass or hematoma. OTHER: No other significant finding. IMPRESSION: NORMAL BRAIN CT WITHOUT CONTRAST. EVIDENCE OF ACUTE STROKE: NO. COMMENT: Quality ID # [id number]: Final reports with documentation of one or more dose reduction techniques (e.g., Automated exposure control, adjustment of the mA and/or kV according to patient size, use of iterative reconstruction technique) TECHNICAL DOCUMENTATION: JOB ID: [id number] [employer]- All Rights Reserved Reading location - IP/workstation name: [email or web address]
[2019-04-08 11:00] LABS: ABSOLUTE LYMPHOCYTES# (MANUAL) 0.3 10^3/uL (0.5-4.7); ABSOLUTE MONOCYTES # (MANUAL) 0.3 10^3/uL (0.1-1.4); ANISOCYTOSIS 2+; BASOPHILS % (MANUAL) 0 % (0-2); EOSINOPHILS % (MANUAL) 0 % (0-6); LYMPHOCYTES % (MANUAL) 7 % (13-45); MONOCYTES % (MANUAL) 8 % (3-13); SEGMENTED NEUTROPHILS % (MAN) 85 % (42-78); TOTAL CELLS COUNTED 100
[2019-04-08 11:01] LABS: PLATELET COMMENT DECREASED; POLYCHROMASIA SLIGHT
--- NOTE | 2019-04-08 11:16 | RADIOLOGY REPORT (SQ) ---
EXAM DESCRIPTION: PELVIS AP COMPLETED DATE/TIME: 04/08/2019 11:06 am REASON FOR STUDY: fall, sacral bruising COMPARISON: None. NUMBER OF VIEWS: One view TECHNIQUE: AP Pelvis LIMITATIONS: None. FINDINGS: MINERALIZATION: Normal. HIPS: No acute fracture or dislocation. No worrisome bone lesions. PELVIS AND SACRUM: No acute fracture or dislocation. No worrisome bone lesions. PUBIS AND ISCHIUM: No acute fracture. LOWER LUMBAR SPINE: No significant findings as visualized. SOFT TISSUES: Vascular stent. OTHER: No other significant finding. IMPRESSION: NEGATIVE STUDY OF THE PELVIS. COMMENT: Pelvic fractures are often occult on plain radiographs. If strong clinical suspicion for f racture, recommend CT or MR. TECHNICAL DOCUMENTATION: JOB ID: [id number] [employer]- All Rights Reserved Reading location - IP/workstation name: [email or web address]
--- NOTE | 2019-04-08 11:17 | RADIOLOGY REPORT (SQ) ---
EXAM DESCRIPTION: CHEST 2 VIEWS COMPLETED DATE/TIME: 04/08/2019 11:06 am REASON FOR STUDY: fall COMPARISON: 02/02/2019 EXAM PARAMETERS: NUMBER OF VIEWS: two views TECHNIQUE: Digital Frontal and Lateral radiographic views of the chest acquired. RADIATION DOSE: NA LIMITATIONS: none FINDINGS: LUNGS AND PLEURA: Chronic interstitial changes and pleural changes on the right. No acute opacities. MEDIASTINUM AND HILAR STRUCTURES: No masses or contour abnormalities. HEART AND VASCULAR STRUCTURES: Heart normal size. No evidence for failure. BONES: No acute findings. HARDWARE: Cardiac hardware unchanged. Venous access catheter. OTHER: No other significant finding. IMPRESSION: NO ACUTE RADIOGRAPHIC FINDING IN THE CHEST. TECHNICAL DOCUMENTATION: JOB ID: [id number] [employer]- All Rights Reserved Reading location - IP/workstation name: [email or web address]
--- NOTE | 2019-04-08 11:18 | RADIOLOGY REPORT (SQ) ---
EXAM DESCRIPTION: SACRUM AND COCCYX COMPLETED DATE/TIME: 04/08/2019 11:07 am REASON FOR STUDY: fall, sacral bruising COMPARISON: None. NUMBER OF VIEWS: Three views. TECHNIQUE: AP, lateral, and tilt views of the sacrum and coccyx. LIMITATIONS: None. FINDINGS: MINERALIZATION: Normal. BONES: No acute fracture or dislocation. No worrisome bone lesions. SOFT TISSUES: No soft tissue swelling. No foreign body. OTHER: No other significant finding. IMPRESSION: NEGATIVE STUDY OF THE SACRUM AND COCCYX. TECHNICAL DOCUMENTATION: JOB ID: [id number] [employer]- All Rights Reserved Reading location - IP/workstation name: [email or web address]
[2019-04-08] MEDS ORDERED: NORMAL SALINE 1000 ML 1,000 ML IV ONE (11:19)
--- NOTE | 2019-04-08 11:19 | RADIOLOGY REPORT (SQ) ---
EXAM DESCRIPTION: L SPINE WHOLE COMPLETED DATE/TIME: 04/08/2019 11:06 am REASON FOR STUDY: fall, sacral bruising COMPARISON: None. NUMBER OF VIEWS: Five views including obliques. TECHNIQUE: AP, lateral, oblique, and sacral radiographic images acquired of the lumbar spine. LIMITATIONS: None. FINDINGS: MINERALIZATION: Normal. SEGMENTATION: Normal. No transitional anatomy. ALIGNMENT: Degenerative retrolisthesis L1 on L2 and L 2 on L3. Mild scoliosis. VERTEBRAE: Maintained height. No fracture or worrisome bone lesion. DISCS: Multilevel degenerative disc disease. POSTERIOR ELEMENTS: Pedicles and facets are intact. No pars defect or posterior arch defects. HARDWARE: Vascular stent. PARASPINAL SOFT TISSUES: Normal. PELVIS: Intact as visualized. No fractures or worrisome bone lesions. SI joints intact. OTHER: No other significant finding. IMPRESSION: Chronic degenerative changes. No acute findings. TECHNICAL DOCUMENTATION: JOB ID: [id number] [employer]- All Rights Reserved Reading location - IP/workstation name: [email or web address]
--- NOTE | 2019-04-08 11:20 | ER Document Report ---
ED Fall - General Chief Complaint: Fall Stated Complaint: FEVER Time Seen by Provider: 04/08/19 10:00 Mode of Arrival: Medic Information source: Patient, Relative TRAVEL OUTSIDE OF THE [place] IN LAST 30 DAYS: No - HPI Patient complains to provider of: fall Occurred: This morning - pt. with h/o metastatic lung ca being treated with c hemo and radiation. He is a DNR. He fell twice according to his , once out of bed and then off the commode. EMS was called and they took his temp and found it to be 102.2. He was given tylenol and transported here for further evaluation. - Related data Allergies/Adverse Reactions: codeine [Codeine] Allergy (Severe, Verified 12/27/18 15:24) Chest pain Past Medical History - General Information source: Patient, Relative - Social History Smoking Status: Former Smoker Family History: Reviewed & Not Pertinent Patient has suicidal ideation: No Patient has homicidal ideation: No - Past Medical History Cardiac Medical History: Reports: Hx Heart Attack - 2004, STENTS X2, Hx Hypertension - But patient says his blood pressure has run in the 90s and recent past. Denies: Hx Coronary Artery Disease Pulmonary Medical History: Reports: Hx COPD - "They say I do but I breathe good", Hx Pneumonia Denies: Hx Asthma, Hx Bronchitis Neurological Medical History: Denies: Hx Cerebrovascular Accident, Hx Seizures Endocrine Medical History: Denies: Hx Diabetes Mellitus Type 1, Hx Diabetes Mellitus Type 2 Renal/ Medical History: Denies: Hx Peritoneal Dialysis GI Medical History: Reports: Hx Gastroesophageal Reflux Disease Musculoskeletal Medical History: Reports Hx Arthritis - R SHOULDER Past Surgical History: Reports: Hx Cardiac Catheterization - 3X stents placed, Hx Cardiac Surgery - pacemaker placed LACW, Hx Orthopedic Surgery - back, NECK X 3 - Immunizations Hx Diphtheria, Pertussis, Tetanus Vaccination: No Hx Pneumococcal Vaccination: 07/12/10 Review of Systems - Review of Systems Constitutional: See HPI, Weakness EENT: No symptoms reported Cardiovascular: No symptoms reported Respiratory: No symptoms reported Gastrointestinal: No symptoms reported Musculoskeletal: See HPI, Back pain Neurological/Psychological: No symptoms reported, See HPI, Weakness Physical Exam - Vital signs Vitals: Resp Pulse Ox 12 95 04/08/19 10:13 04/08/19 10:13 - General General appearance: Appears well In distress: None - HEENT Mouth/Lips: Normal Mucous membranes: Normal Pharynx: Normal Neck: Normal - Respiratory Respiratory status: No respiratory distress Breath sounds: Normal - Cardiovascular Rhythm: Regular Heart sounds: Normal auscultation Murmur: No - Abdominal Inspection: Normal Bowel sounds: Normal Tenderness: Nontender Organomegaly: No organomegaly - Back Back: Tender - there is min TTP of the lumbar spine diffusely with a 3 x 5 cm ecchymosis. Course - Re-evaluation Re-evalutation: 04/08/19 14:23 pt,. feels well at time of d/c . His w/u is essentially normal. He has expressed a desire to go home - Vital Signs Vital signs: Temp Pulse Resp BP Pulse Ox 99.7 F 77 14 92/49 L 100 04/08/19 10:21 04/08/19 10:21 04/08/19 14:01 04/08/19 14:00 04/08/19 14:01 - Laboratory Result Diagrams: 04/08/19 09:06 04/08/19 09:06 Laboratory results interpreted by me: 04/08/19 04/08/19 04/08/19 09:06 09:06 13:10 WBC 3.6 L RBC 2.45 L Hgb 8.1 L Hct 23.4 L RDW 19.1 H Plt Count 93 L Seg Neuts % (Manual) 85 H Lymphocytes % (Manual) 7 L Abs Lymphs (Manual) 0.3 L Carbon Dioxide 31 H Creatine Kinase 39 L Urine Ascorbic Acid 40 H - Diagnostic Test Radiology reviewed: Reports reviewed - neg fx. All imaging without acute abnormality Discharge - Discharge Clinical Impression: Fall Qualifiers: Encounter type: subsequent encounter Qualified Code(s): W19.XXXD - Unspecified fall, subsequent encounter Condition: Stable Disposition: HOME, SELF-CARE Additional Instructions: rest, continue current meds, return if worse Referrals: DAY GOMEZ MD [COMMUNITY BASED STAFF] - Follow up as needed
[2019-04-08 13:33] LABS: APPEARANCE,URINE CLEAR; BILIRUBIN,URINE NEGATIVE (NEGATIVE); COLOR,URINE YELLOW; GLUCOSE, URINE NEGATIVE (NEGATIVE); KETONES,URINE NEGATIVE (NEGATIVE); LEUKOCYTE ESTERASE,URINE NEGATIVE (NEGATIVE); NITRITE,URINE NEGATIVE (NEGATIVE); PROTEIN,URINE NEGATIVE (NEGATIVE); URINE SPECIFIC GRAVITY 1.008; UROBILINOGEN,URINE NEGATIVE mg/dL (<2.0)
[2019-04-08 14:03] LABS: VENOUS BLOOD BASE EXCESS 2.1 mmol/L; VENOUS BLOOD HCO3 26.9 mmol/L (20-32); VENOUS BLOOD PCO2 43.2 mmHg (35-63); VENOUS BLOOD PH 7.41 (7.30-7.42)
[2019-04-08 14:04] VITALS: BP 92/49
--- NOTE | 2019-04-10 00:57 | EKG REPORT ---
SEVERITY:- ABNORMAL ECG - ATRIAL-SENSED VENTRICULAR-PACED RHYTHM : Confirmed by: Daniela Calderon 10-Apr-2019 00:55:23
== END 2019-04-08 15:19 | disposition home or self-care (01) ==
LOC: ER 09:36
DX: S30.0XXA Contusion of lower back and pelvis, initial encounter (principal); W17.89XA Other fall from one level to another, initial encounter; R50.9 Fever, unspecified; R53.1 Weakness; C78.00 Secondary malignant neoplasm of unspecified lung; Z79.899 Other long term (current) drug therapy; I10 Essential (primary) hypertension; J44.9 Chronic obstructive pulmonary disease, unspecified; Z95.5 Presence of coronary angioplasty implant and graft; Z87.891 Personal history of nicotine dependence
CPT/HCPCS: 93005; 99284; 96360; 36415; 87040; 87086; 82962; 82550; 85025; 85610; 87077; 80053; 81001; 87186; 82803; 83605; 71046; 72220; 72110; 72170; 70450; 93010; J7030

== ENCOUNTER 2019-08-01 14:18 | Inpatient (IN) | payer MEDICARE, OTHER ==
[2019-08-01 14:45] LABS: HEMATOCRIT 31.7 % (37.9-51.0); HEMOGLOBIN 10.9 g/dL (13.5-17.0); MEAN CORPUSCULAR HEMOGLOBIN 29.7 pg (27.0-33.4); MEAN CORPUSCULAR HGB CONC 34.2 g/dL (32.0-36.0); MEAN CORPUSCULAR VOLUME 87 fl (80-97); PLATELET COUNT 247 10^3/uL (150-450); RED BLOOD COUNT 3.66 10^6/uL (4.35-5.55); RED CELL DISTRIBUTION WIDTH 14.2 % (11.5-14.0); WHITE BLOOD COUNT 10.2 10^3/uL (4.0-10.5)
[2019-08-01 15:06] LABS: VENOUS BLOOD BASE EXCESS 5.8 mmol/L; VENOUS BLOOD HCO3 31.2 mmol/L (20-32); VENOUS BLOOD PCO2 49.3 mmHg (35-63); VENOUS BLOOD PH 7.42 (7.30-7.42)
[2019-08-01 15:11] LABS: ABSOLUTE LYMPHOCYTES# (MANUAL) 0.2 10^3/uL (0.5-4.7); ABSOLUTE MONOCYTES # (MANUAL) 0.1 10^3/uL (0.1-1.4); ANISOCYTOSIS SLIGHT; BASOPHILS % (MANUAL) 0 % (0-2); EOSINOPHILS % (MANUAL) 4 % (0-6); LYMPHOCYTES % (MANUAL) 2 % (13-45); MONOCYTES % (MANUAL) 1 % (3-13); PLATELET COMMENT ADEQUATE; SEGMENTED NEUTROPHILS % (MAN) 93 % (42-78); TOTAL CELLS COUNTED 100
[2019-08-01 15:12] LABS: HYPOCHROMASIA SLIGHT
[2019-08-01 15:17] LABS: ALBUMIN 4.1 g/dL (3.5-5.0); ALKALINE PHOSPHATASE 86 U/L (38-126); ANION GAP 10 (5-19); ASPARTATE AMINO TRANSFERASE 29 U/L (17-59); BILIRUBIN,DIRECT 0.3 mg/dL (0.0-0.4); BILIRUBIN,TOTAL 0.8 mg/dL (0.2-1.3); BLOOD UREA NITROGEN 22 mg/dL (7-20); CALCIUM 9.3 mg/dL (8.4-10.2); CARBON DIOXIDE 31 mmol/L (22-30); CHLORIDE 95 mmol/L (98-107); CREATINE KINASE 138 U/L (55-170); GLUCOSE 87 mg/dL (75-110); POTASSIUM 3.7 mmol/L (3.6-5.0); TOTAL PROTEIN 7.2 g/dL (6.3-8.2)
[2019-08-01] MEDS ORDERED: NORMAL SALINE 1000 ML 1,000 ML IV ONE ×3 (15:17→17:39)
[2019-08-01 15:29] LABS: CREATINE KINASE MB 0.85 ng/mL (<4.55)
[2019-08-01 15:33] LABS: TROPONIN I 0.045 ng/mL
--- NOTE | 2019-08-01 16:29 | RADIOLOGY REPORT (SQ) ---
EXAM DESCRIPTION: CT HEAD WITHOUT COMPLETED DATE/TIME: 08/01/2019 4:19 pm REASON FOR STUDY: confusion COMPARISON: 04/08/2019. TECHNIQUE: Axial images acquired through the brain without intravenous contrast. Images reviewed wi th bone, brain and subdural windows. Additional sagittal and coronal reconstructions were generated. Images stored on PACS. All CT scanners at this facility use dose modulation, iterative reconstruction, and/or weight based d osing when appropriate to reduce radiation dose to as low as reasonably achievable (ALARA). [facility]: Dose Right [facility]: CareDose [facility]: Dose Right [facility]: Teradose 4D [facility]: Seeder RADIATION DOSE: CT Rad equipment meets quality standard of care and radiation dose reduction techniq ues were employed. CTDIvol: 53.2 mGy. DLP: 991 mGy-cm. mGy. LIMITATIONS: None. FINDINGS: VENTRICLES: Normal size and contour. CEREBRUM: No masses. No hemorrhage. No midline shift. No evidence for acute infarction. Normal gra y/white matter differentiation. No areas of low density in the white matter. CEREBELLUM: No masses. No hemorrhage. No alteration of density. No evidence for acute infarction. EXTRAAXIAL SPACES: No fluid collections. No masses. ORBITS AND GLOBE: No intra- or extraconal masses. Normal contour of globe without masses. CALVARIUM: No fracture. PARANASAL SINUSES: No fluid or mucosal thickening. SOFT TISSUES: No mass or hematoma. OTHER: No other significant finding. IMPRESSION: NORMAL BRAIN CT WITHOUT CONTRAST. EVIDENCE OF ACUTE STROKE: NO. COMMENT: Quality ID # [id number]: Final reports with documentation of one or more dose reduction techniques (e.g., Automated exposure control, adjustment of the mA and/or kV according to patient size, use of iterative reconstruction technique) TECHNICAL DOCUMENTATION: JOB ID: [id number] [employer]- All Rights Reserved Reading location - IP/workstation name: [email or web address]
--- NOTE | 2019-08-01 17:06 | EKG REPORT ---
SEVERITY:- ABNORMAL ECG - ATRIAL-SENSED VENTRICULAR-PACED RHYTHM : Confirmed by: Ananth Dodge MD 01-Aug-2019 17:05:35
[2019-08-01 17:14] LABS: APPEARANCE,URINE CLEAR; BILIRUBIN,URINE NEGATIVE (NEGATIVE); COLOR,URINE YELLOW; GLUCOSE, URINE NEGATIVE (NEGATIVE); KETONES,URINE NEGATIVE (NEGATIVE); LEUKOCYTE ESTERASE,URINE NEGATIVE (NEGATIVE); NITRITE,URINE NEGATIVE (NEGATIVE); PROTEIN,URINE NEGATIVE (NEGATIVE); UROBILINOGEN,URINE NEGATIVE mg/dL (<2.0)
--- NOTE | 2019-08-01 17:53 | ER Document Report ---
ED Dizziness/Weakness - General Chief Complaint: Altered Mental Status Stated Complaint: AMS Time Seen by Provider: 08/01/19 15:15 Primary Care Provider: FRANK AGUILAR MD [Primary Care Provider] - Follow up as needed Mode of Arrival: Ambulatory Information source: Patient TRAVEL OUTSIDE OF THE [place] IN LAST 30 DAYS: No - HPI Notes: Patient is brought in by . states that at home today patient was confused and "stumbling around". Patient denies this. Patient and are difficult historians. Patient denies any pain. He denies feeling short of breath. He denies feeling dizzy or weak. Apparently he recently finished chemotherapy for lung cancer. This was in May. Per a personal conversation with his oncologist patient has been in remission and improving since May of 2019. 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 Patient's dizziness today was apparently transient. Nothing made it better or worse. It was mild to moderate. Patient cannot characterize it for me. Daughter also was in the emergency department for a while and states that she often has trouble being able to get a coherent story from her mother and father concerning his medical problems. - Related Data Allergies/Adverse Reactions: codeine [Codeine] Allergy (Severe, Verified 08/01/19 14:34) Chest pain Past Medical History - General Information source: Patient, Relative - Social History Smoking Status: Former Smoker Chew tobacco use (# tins/day): Yes Frequency of alcohol use: None Drug Abuse: None Family History: Reviewed & Not Pertinent Patient has suicidal ideation: No Patient has homicidal ideation: No - Past Medical History Cardiac Medical History: Reports: Hx Heart Attack - 2005, STENTS X2, Hx Hyperten lonnie Denies: Hx Coronary Artery Disease Pulmonary Medical History: Reports: Hx COPD, Hx Pneumonia Denies: Hx Asthma, Hx Bronchitis Neurological Medical History: Denies: Hx Cerebrovascular Accident, Hx Seizures Endocrine Medical History: Denies: Hx Diabetes Mellitus Type 1, Hx Diabetes Mellitus Type 2 Renal/ Medical History: Denies: Hx Peritoneal Dialysis GI Medical History: Reports: Hx Gastroesophageal Reflux Disease Musculoskeletal Medical History: Reports Hx Arthritis - R SHOULDER Past Surgical History: Reports: Hx Cardiac Catheterization - 3X stents placed, Hx Cardiac Surgery - pacemaker, Hx Orthopedic Surgery - back, NECK X 3 - Immunizations Hx Diphtheria, Pertussis, Tetanus Vaccination: No Hx Pneumococcal Vaccination: 07/12/10 Review of Systems - Review of Systems Constitutional: denies: Chills, Fever Cardiovascular: denies: Chest pain, Palpitations Respiratory: denies: Cough, Short of breath -: Yes All other systems reviewed and negative Physical Exam - Vital signs Vitals: Resp BP Pulse Ox 19 86/61 L 94 08/01/19 14:26 08/01/19 14:26 08/01/19 14:26 Interpretation: Hypotensive - General General appearance: Appears well, Alert In distress: None - HEENT Head: Normocephalic, Atraumatic Eyes: Normal Pupils: PERRL - Respiratory Respiratory status: No respiratory distress Chest status: Nontender Breath sounds: Normal Chest palpation: Normal - Cardiovascular Rhythm: Regular Heart sounds: Normal auscultation Murmur: No - Abdominal Inspection: Normal Distension: No distension Bowel sounds: Normal Tenderness: Nontender Organomegaly: No organomegaly - Back Back: Normal, Nontender - Extremities General upper extremity: Normal inspection, Nontender, Normal color, Normal ROM, Normal temperature General lower extremity: Normal inspection, Nontender, Normal color, Normal ROM, Normal temperature, Normal weight bearing. No: Douglas's sign - Neurological Cognition: Confused Orientation: Disoriented to time [place] Coma Scale Eye Opening: Spontaneous [place] Coma Scale Verbal: Confused [place] Coma Scale Motor: Obeys Commands [place] Coma Scale Total: 14 Speech: Normal Motor strength normal: LUE, RUE, LLE, RLE Sensory: Normal - Psychological Associated symptoms: Normal affect, Normal mood - Skin Skin Temperature: Warm Skin Moisture: Dry Skin Color: Normal Course - Re-evaluation Re-evalutation: 08/01/19 17:51 Patient is brought in for what appeared to be some transient dizziness, weakness, and confusion. Here patient is very talkative and only disoriented to time. However I am unable to ascertain a coherent story from him and his as the details often change. His daughter who was at bedside for a long time confirms that this is often the case where the patient and his give her changing stories. Patient denies any symptoms at this time. Patient's blood pressure was low on arrival and has intermittently been low despite 2 L of fluid. There is no evidence of infection at this time. There is no evidence of any significant arrhythmia that would cause it. Patient does appear dehydrated by labs and is somewhat cachectic looking. He does have a history of bowel nourishment and dehydration secondary to cancer and chemotherapy. I called and spoke with his oncologist who recommends an overnight stay for further evaluatio n and treatment. - Vital Signs Vital signs: Temp Pulse Resp BP Pulse Ox 98.4 F 92 19 88/45 L 100 08/01/19 14:44 08/01/19 14:44 08/01/19 15:31 08/01/19 15:31 08/01/19 15:31 - Laboratory Result Diagrams: 08/01/19 14:29 08/01/19 14:29 Laboratory results interpreted by me: 08/01/19 08/01/19 08/01/19 14:29 14:29 16:59 RBC 3.66 L Hgb 10.9 L Hct 31.7 L RDW 14.2 H Seg Neuts % (Manual) 93 H Lymphocytes % (Manual) 2 L Monocytes % (Manual) 1 L Abs Neuts (Manual) 9.5 H Abs Lymphs (Manual) 0.2 L Sodium 136.1 L Chloride 95 L Carbon Dioxide 31 H BUN 22 H Creatinine 1.48 H Est GFR ( Amer) 57 L Est GFR (MDRD) Non-Af 47 L Urine Ascorbic Acid 20 H - Diagnostic Test Radiology reviewed: Image reviewed, Reports reviewed - EKG Interpretation by Me Rate: Normal - 85 Rhythm: Other - Atrially paced [place]/QRS: IVCD Critical Care Note - Critical Care Note Total time excluding time spent on procedures (mins): 50 Comments: 50 minutes of critical care time were spent on this patient. This included repeat assessments of patient's hypotension. It included multiple discussions with consultants. It included multiple discussions with patient and family. It included reviewing imaging and laboratories. Discharge - Discharge Clinical Impression: Confusion, Dizziness Hypotension Qualifiers: Hypotension type: unspecified hypotension type Qualified Code(s): I95.9 - Hypotension, unspecified Condition: Fair Disposition: ADMITTED INPATIENT Admitting Provider: Shiv (Hospitalist) Unit Admitted: Telemetry Referrals: FRANK AGUILAR MD [Primary Care Provider] - Follow up as needed
--- NOTE | 2019-08-01 18:47 | PDOC H&P ---
History of Present Illness Admission Date/PCP: 08/01/19 18:05 FRANK AGUILAR MD Patient complains of: Weakness fatigue, fall History of Present Illness: LIDA GRIGGS is a 73 year old male with a history of lung cancer s/p right lung resection radiation and chemotherapy [last 05/2019], CHF with AICD, CAD with stents, achalasia, distant history of peptic ulcer disease, who was brought in by his after patient experienced a fall. notes that patient has been very fatigued and this morning he defecated on himself in bed. Later on try to get up from bed patient slipped and fell to the floor and was unable to get up until his 's brother came to the house to help him up. In the ER patient was noted to be hypotensive with systolic blood pressure in the 70s. Head CT was done which was negative. Patient was given IV fluids and [facility]. Patient notes increased frequency of his bowel movements but denies any loose diarrhea. He has also been taking his Lasix daily as prescribed. He admits to sufficient food intake but his is concerned that he may not be consuming enough fluids though patient himself does say that he feels that he does. Otherwise patient denies any chest pain fever or chills. States that he feels well and would like to go home soon. Past Medical History Cardiac Medical History: Reports: Myocardial Infarction - 2005, STENTS X2, Hyp ertension Denies: Coronary Artery Disease Pulmonary Medical History: Reports: Pneumonia Denies: Asthma, Bronchitis Neurological Medical History: Denies: Seizures Endocrine Medical History: Denies: Diabetes Mellitus Type 1, Diabetes Mellitus Type 2 Malignancy Medical History: Reports: Lung Cancer GI Medical History: Reports: Gastroesophageal Reflux Disease Musculoskeltal Medical History: Reports: Arthritis - R SHOULDER Hematology: Denies: Anemia - Denies anemia but states he use to take Iron daily Past Surgical History Past Surgical History: Reports: Cardiac Catheterization - 3X stents placed, Orthopedic Surgery - back, NECK X 3 Social History Smoking Status: Former Smoker Frequency of Alcohol Use: None Hx Recreational Drug Use: No Hx Prescription Drug Abuse: No - Advance Directive Resuscitation Status: Do Not Resuscitate Family History Family History: Reviewed & Not Pertinent, Hypertension Parental Family History Reviewed: Yes Children Family History Reviewed: NA Sibling(s) Family History Reviewed.: NA Medication/Allergy Home Medications: Aspirin [Aspirin 81 mg Chewable Tablet] 81 mg PO DAILY 04/09/14 Digoxin [Lanoxin 0.125 mg Tablet] 0.125 mg PO QHS 04/09/14 Furosemide [Lasix] 20 mg PO DAILY 04/09/14 Multivitamin [Multi-Vitamin Daily] 1 each PO DAILY 04/09/14 Simvastatin [Zocor 40 mg Tablet] 40 mg PO QHS 04/09/14 Tramadol HCl [Ultram] 50 mg PO TID PRN 04/09/14 Trazodone HCl [Desyrel 50 mg Tablet] 50 mg PO QHS 04/09/14 Ascorbic Acid [Vitamin C] 500 mg PO QHS 07/31/14 Clopidogrel Bisulfate [Plavix 75 mg Tablet] 75 mg PO DAILY 07/31/14 Cyanocobalamin (Vitamin B-12) [Vitamin B-12] 1,000 mcg PO DAILY 07/31/14 Gabapentin [Neurontin 300 mg Capsule] 300 mg PO BID 09/18/14 Potassium Chloride [Klor-Con 10 Meq Tablet ER] 10 meq PO BID 09/18/14 Carvedilol 3.125 mg PO BID 06/29/16 Cholecalciferol (Vitamin D3) [Vitamin D3] 500 unit PO BID 08/25/16 Clonazepam [Klonopin] 0.5 mg PO BID 08/25/16 Cyclobenzaprine HCl 5 mg PO QHS 05/11/17 Allergies/Adverse Reactions: codeine [Codeine] Allergy (Severe, Verified 08/01/19 14:34) Chest pain Review of Systems Constitutional: PRESENT: fatigue, weakness. ABSENT: anorexia, chills, fever(s), headache(s) Eyes: ABSENT: visual disturbances Nose, Mouth, and Throat: ABSENT: headache(s) Cardiovascular: ABSENT: chest pain, edema, orthropnea Respiratory: ABSENT: cough, dyspnea, hemoptysis Gastrointestinal: ABSENT: abdominal pain Genitourinary: ABSENT: difficulty urinating Musculoskeletal: ABSENT: back pain Integumentary: ABSENT: diaphoresis Neurological: PRESENT: dizziness - Occasionally lightheaded on standing. ABSENT: confusion Endocrine: ABSENT: polyuria Physical Exam Vital Signs: Temp Pulse Resp BP Pulse Ox 98.4 F 92 19 88/45 L 100 08/01/19 14:44 08/01/19 14:44 08/01/19 15:31 08/01/19 15:31 08/01/19 15:31 Intake & Output 07/31/19 08/01/19 08/02/19 06:59 06:59 06:59 Intake Total 1999 Balance 1999 Weight 59.3 kg General appearance: PRESENT: no acute distress, cooperative, thin Mouth exam: PRESENT: neck supple Neck exam: ABSENT: JVD Respiratory exam: PRESENT: clear to auscultation jamia, unlabored. ABSENT: tachypnea, wheezes Cardiovascular exam: PRESENT: RRR, +S1, +S2. ABSENT: tachycardia Vascular exam: PRESENT: normal capillary refill GI/Abdominal exam: PRESENT: normal bowel sounds, soft. ABSENT: ascites, rebound, rigid, tenderness Extremities exam: ABSENT: pedal edema Neurological exam: PRESENT: alert, awake, oriented to person, oriented to place, oriented to time, oriented to situation. ABSENT: altered Psychiatric exam: ABSENT: agitated, anxious Focused psych exam: ABSENT: internal stimuli, pressured speech Results Laboratory Results: 08/01/19 14:29 08/01/19 14:29 08/01/19 08/01/19 08/01/19 14:29 14:29 14:29 WBC 10.2 RBC 3.66 L Hgb 10.9 L Hct 31.7 L MCV 87 MCH 29.7 MCHC 34.2 RDW 14.2 H Plt Count 247 Seg Neutrophils % Not Reportable VBG pH VBG pCO2 VBG HCO3 VBG Base Excess Sodium 136.1 L Potassium 3.7 Chloride 95 L Carbon Dioxide 31 H Anion Gap 10 BUN 22 H Creatinine 1.48 H Est GFR ( Amer) 57 L Glucose 87 Lactic Acid 1.3 Calcium 9.3 Total Bilirubin 0.8 AST 29 Alkaline Phosphatase 86 Total Protein 7.2 Albumin 4.1 Urine Color Urine Appearance Urine pH Ur Specific [place] Urine Protein Urine Glucose (UA) Urine Ketones Urine Blood Urine Nitrite Ur Leukocyte Esterase Urine WBC (Auto) Urine RBC (Auto) 08/01/19 08/01/19 14:29 16:59 WBC RBC Hgb Hct MCV MCH MCHC RDW Plt Count Seg Neutrophils % VBG pH 7.42 VBG pCO2 49.3 VBG HCO3 31.2 VBG Base Excess 5.8 Sodium Potassium Chloride Carbon Dioxide Anion Gap BUN Creatinine Est GFR ( Amer) Glucose Lactic Acid Calcium Total Bilirubin AST Alkaline Phosphatase Total Protein Albumin Urine Color YELLOW Urine Appearance CLEAR Urine pH 5.0 Ur Specific [place] 1.010 Urine Protein NEGATIVE Urine Glucose (UA) NEGATIVE Urine Ketones NEGATIVE Urine Blood NEGATIVE Urine Nitrite NEGATIVE Ur Leukocyte Esterase NEGATIVE Urine WBC (Auto) 0 Urine RBC (Auto) 0 08/01/19 08/01/19 14:29 14:29 Creatine Kinase 138 CK-MB (CK-2) 0.85 Troponin I 0.045 Impressions: Head CT 08/01/19 16:04 IMPRESSION: NORMAL BRAIN CT WITHOUT CONTRAST. EVIDENCE OF ACUTE STROKE: NO. Assessment and Plan - Diagnosis (1) Hypotension Qualifiers: Hypotension type: hypotension due to hypovolemia Qualified Code(s): I95.89 - Other hypotension; E86.1 - Hypovolemia Is this a current diagnosis for this admission?: Yes Plan: Likely secondary to dehydration from poor fluid consumption or diuretics or increased frequency of bowel movements Hypertension seems to be responding very nicely to IV fluids. Has received 3 L. Will give gentle IV fluid hydration through the night. Hussain held [cautious: Patient reports history of CHF] If patient has loose unformed frequent stools, will check C. difficile and stool studies. (2) Generalized weakness Is this a current diagnosis for this admission?: Yes Plan: Fell today. Head CT shows no acute events. Physical and Occupational Therapy (3) Dehydration Is this a current diagnosis for this admission?: Yes Plan: IV fluids. Encourage p.o. fluids. (4) Lung cancer Qualifiers: Laterality: right Lung location: upper lobe of lung Qualified Code(s): C34.11 - Malignant neoplasm of upper lobe, right bronchus or lung Is this a current diagnosis for this admission?: Yes Plan: We will consult to Dr. Alvarez who is patient's primary oncologist (5) CAD (coronary artery disease) Qualifiers: Coronary Disease-Associated Artery/Lesion type: [place] artery [place] vs. transplanted heart: zuni heart Associated angina: angina presence unspecified Qualified Code(s): I25.10 - Atherosclerotic heart disease of [place] coronary artery without angina pectoris Is this a current diagnosis for this admission?: Yes Plan: Continue aspirin, Plavix, statin, nitroglycerin and beta-payal. (6) CARLOS (acute kidney injury) Is this a current diagnosis for this admission?: Yes Plan: Monitor response to IV fluids. - Plan Summary Summary: Please follow-up medical reconciliation as patient and do not have medication list currently but will bring in list tomorrow. - Time Time Spent with patient: 35 or more minutes
[2019-08-01] MEDS ORDERED: ONDANSETRON HCL INJ/PF 4 MG/2 ML SDV IV PRN (18:48)
[2019-08-01] MEDS ORDERED: MAG HYDROX/AL HYDROX/SIMETH SUSP 30 ML UDCUP PO PRN (18:48)
[2019-08-01] MEDS ORDERED: ACETAMINOPHEN 325 MG TABLET PO PRN (18:48)
[2019-08-01] MEDS ORDERED: NORMAL SALINE 1000 ML 1,000 ML IV PRN (18:48)
[2019-08-01] MEDS ORDERED: IPRATROPIUM/ALBUTEROL 0.5-2.5 MG/3 ML AMPUL NEB PRN (18:48)
[2019-08-01] MEDS ORDERED: NITROGLYCERIN 0.4 MG/TAB 25 TAB/BOTTLE SL PRN (18:57)
[2019-08-01] MEDS ORDERED: ATORVASTATIN CALCIUM 40 MG TABLET PO SCH (22:00)
[2019-08-01] MEDS: CARVEDILOL 3.125 MG TABLET PO SCH (22:15)
[2019-08-02] MEDS ORDERED: PANTOPRAZOLE SODIUM 40 MG TABLET.DR PO SCH (06:00)
[2019-08-02 06:37] LABS: ABSOLUTE EOSINOPHILS # (AUTO) 0.3 10^3/uL (0.0-0.6); ABSOLUTE LYMPHOCYTES (AUTO) 0.5 10^3/uL (0.5-4.7); ABSOLUTE MONOCYTES (AUTO) 0.4 10^3/uL (0.1-1.4); ABSOLUTE NEUT (AUTO) 3.3 10^3/uL (1.7-8.2); BASOPHILS % (AUTO) 0.4 % (0-2); EOSINOPHILS % (AUTO) 6.1 % (0-6); HEMATOCRIT 25.4 % (37.9-51.0); LYMPHOCYTES % (AUTO) 11.1 % (13-45); MEAN CORPUSCULAR HEMOGLOBIN 29.8 pg (27.0-33.4); MEAN CORPUSCULAR HGB CONC 34.2 g/dL (32.0-36.0); MEAN CORPUSCULAR VOLUME 87 fl (80-97); MONOCYTES % (AUTO) 9.7 % (3-13); PLATELET COUNT 195 10^3/uL (150-450); RED BLOOD COUNT 2.91 10^6/uL (4.35-5.55); RED CELL DISTRIBUTION WIDTH 14.2 % (11.5-14.0); SEGMENTED NEUTROPHILS % (AUTO) 72.7 % (42-78); TOTAL CELLS COUNTED % (AUTO) 100 %; WHITE BLOOD COUNT 4.6 10^3/uL (4.0-10.5)
[2019-08-02 06:40] LABS: HEMOGLOBIN 8.7 g/dL (13.5-17.0)
[2019-08-02 06:58] LABS: ANION GAP 8 (5-19); BLOOD UREA NITROGEN 19 mg/dL (7-20); CALCIUM 8.4 mg/dL (8.4-10.2); CARBON DIOXIDE 25 mmol/L (22-30); CHLORIDE 107 mmol/L (98-107); GLUCOSE 80 mg/dL (75-110); PHOSPHORUS 2.8 mg/dL (2.5-4.5); POTASSIUM 3.6 mmol/L (3.6-5.0)
[2019-08-02 08:05] VITALS: BP 149/65
--- NOTE | 2019-08-02 08:26 | PDOC CONSULTATION ---
Consultation Consult Date: 08/02/19 Attending physician:: LAURIE BRENNER Provider Consulted: CATERINA CHEUNG Consult reason:: Patient with known history of stage III lung cancer status post concurrent chemoradiation here with severe dehydration History of Present Illness Admission Date/PCP: 08/01/19 18:05 FRANK AGUILAR MD History of Present Illness: LIDA GRIGGS is a 73 year old male with known history of stage III lung cancer, all the diagnosis was done in [facility], ultimately patient wanted get treated closer to home so we treated him with concurrent chemoradiation, this completed in 05/2019. He did generally well but did get weak with therapy. He notes that at the end of June he was taking a little bit less p.o. because of taste changes, over the last 2 weeks prior to admission he was weak and having some falls, ultimately he presented with severe weakness, was found to be hypotensive tachycardic consistent with severe dehydration, he was given 24 hours of hydration today feels much better. He has not really gotten up and walked yet. He feels hungry to eat. Past Medical History Cardiac Medical History: Reports: Myocardial Infarction - 2005, STENTS X2, Hypertension Denies: Coronary Artery Disease Pulmonary Medical History: Reports: Chronic Obstructive Pulmonary Disease (COPD), Pneumonia Denies: Asthma, Bronchitis Neurological Medical History: Denies: Seizures Endocrine Medical History: Denies: Diabetes Mellitus Type 1, Diabetes Mellitus Type 2 Malignancy Medical History: Reports: Lung Cancer GI Medical History: Reports: Gastroesophageal Reflux Disease Musculoskeltal Medical History: Reports: Arthritis - R SHOULDER Hematology: Denies: Anemia - Denies anemia but states he use to take Iron daily Past Surgical History Past Surgical History: Reports: Cardiac Catheterization - 3X stents placed, Orthopedic Surgery - back, NECK X 3 Social History Smoking Status: Never Smoker Frequency of Alcohol Use: None Hx Recreational Drug Use: No Hx Prescription Drug Abuse: No - Advance Directive Resuscitation Status: Do Not Resuscitate Family History Family History: Reviewed & Not Pertinent, Hypertension Parental Family History Reviewed: Yes Children Family History Reviewed: Yes Sibling(s) Family History Reviewed.: Yes Medication/Allergy Allergies/Adverse Reactions: codeine [Codeine] Allergy (Severe, Verified 08/01/19 14:34) Chest pain Review of Systems Constitutional: ABSENT: chills, fever(s), headache(s), weight gain, weight loss Eyes: ABSENT: visual disturbances Ears: ABSENT: hearing changes Cardiovascular: ABSENT: chest pain, dyspnea on exertion, edema, orthropnea, palpitations Respiratory: ABSENT: cough, hemoptysis Gastrointestinal: ABSENT: abdominal pain, constipation, diarrhea, hematemesis, hematochezia, nausea, vomiting Genitourinary: ABSENT: dysuria, hematuria Musculoskeletal: ABSENT: joint swelling Integumentary: ABSENT: rash, wounds Neurological: ABSENT: abnormal gait, abnormal speech, confusion, dizziness, focal weakness, syncope Psychiatric: ABSENT: anxiety, depression, homidical ideation, suicidal ideation Endocrine: ABSENT: cold intolerance, heat intolerance, polydipsia, polyuria Hematologic/Lymphatic: ABSENT: easy bleeding, easy bruising Physical Exam Vital Signs: Temp Pulse Resp BP Pulse Ox 97.5 F 96 19 149/65 H 90 L 08/02/19 08:00 08/02/19 08:00 08/02/19 08:00 08/02/19 08:00 08/02/19 08:00 Intake & Output 08/01/19 08/02/19 08/03/19 06:59 06:59 06:59 Intake Total 3120 Output Total 300 Balance 2820 Weight 67 kg General appearance: PRESENT: no acute distress, well-developed, well-nourished Head exam: PRESENT: atraumatic, normocephalic Eye exam: PRESENT: conjunctiva pink, EOMI, PERRLA. ABSENT: scleral icterus Ear exam: PRESENT: normal external ear exam Mouth exam: PRESENT: moist, tongue midline Neck exam: ABSENT: carotid bruit, JVD, lymphadenopathy, thyromegaly Respiratory exam: PRESENT: clear to auscultation jamia. ABSENT: rales, rhonchi, wheezes Cardiovascular exam: PRESENT: RRR. ABSENT: diastolic murmur, rubs, systolic murmur Pulses: PRESENT: normal dorsalis pedis pul Vascular exam: PRESENT: normal capillary refill GI/Abdominal exam: PRESENT: normal bowel sounds, soft. ABSENT: distended, guarding, mass, organolmegaly, rebound, tenderness Rectal exam: PRESENT: deferred Extremities exam: PRESENT: full ROM. ABSENT: calf tenderness, clubbing, pedal edema Neurological exam: PRESENT: alert, awake, oriented to person, oriented to place, oriented to time, oriented to situation, CN II-XII grossly intact. ABSENT: motor sensory deficit Psychiatric exam: PRESENT: appropriate affect, normal mood. ABSENT: homicidal ideation, suicidal ideation Skin exam: PRESENT: dry, intact, warm. ABSENT: cyanosis, rash Results Laboratory Results: 08/02/19 05:46 08/02/19 05:46 08/01/19 08/01/19 08/01/19 14:29 14:29 14:29 WBC 10.2 RBC 3.66 L Hgb 10.9 L Hct 31.7 L MCV 87 MCH 29.7 MCHC 34.2 RDW 14.2 H Plt Count 247 Seg Neutrophils % Not Reportable VBG pH VBG pCO2 VBG HCO3 VBG Base Excess Sodium 136.1 L Potassium 3.7 Chloride 95 L Carbon Dioxide 31 H Anion Gap 10 BUN 22 H Creatinine 1.48 H Est GFR ( Amer) 57 L Glucose 87 Lactic Acid 1.3 Calcium 9.3 Phosphorus Total Bilirubin 0.8 AST 29 Alkaline Phosphatase 86 Total Protein 7.2 Albumin 4.1 Urine Color Urine Appearance Urine pH Ur Specific [place] Urine Protein Urine Glucose (UA) Urine Ketones Urine Blood Urine Nitrite Ur Leukocyte Esterase Urine WBC (Auto) Urine RBC (Auto) 08/01/19 08/01/19 08/02/19 14:29 16:59 05:46 WBC 4.6 RBC 2.91 L Hgb 8.7 L D Hct 25.4 L MCV 87 MCH 29.8 MCHC 34.2 RDW 14.2 H Plt Count 195 Seg Neutrophils % 72.7 VBG pH 7.42 VBG pCO2 49.3 VBG HCO3 31.2 VBG Base Excess 5.8 Sodium Potassium Chloride Carbon Dioxide Anion Gap BUN Creatinine Est GFR ( Amer) Glucose Lactic Acid Calcium Phosphorus Total Bilirubin AST Alkaline Phosphatase Total Protein Albumin Urine Color YELLOW Urine Appearance CLEAR Urine pH 5.0 Ur Specific [place] 1.010 Urine Protein NEGATIVE Urine Glucose (UA) NEGATIVE Urine Ketones NEGATIVE Urine Blood NEGATIVE Urine Nitrite NEGATIVE Ur Leukocyte Esterase NEGATIVE Urine WBC (Auto) 0 Urine RBC (Auto) 0 08/02/19 05:46 WBC RBC Hgb Hct MCV MCH MCHC RDW Plt Count Seg Neutrophils % VBG pH VBG pCO2 VBG HCO3 VBG Base Excess Sodium 140.4 Potassium 3.6 Chloride 107 Carbon Dioxide 25 Anion Gap 8 BUN 19 Creatinine 1.13 Est GFR ( Amer) > 60 Glucose 80 Lactic Acid Calcium 8.4 Phosphorus 2.8 Total Bilirubin AST Alkaline Phosphatase Total Protein Albumin Urine Color Urine Appearance Urine pH Ur Specific [place] Urine Protein Urine Glucose (UA) Urine Ketones Urine Blood Urine Nitrite Ur Leukocyte Esterase Urine WBC (Auto) Urine RBC (Auto) 08/01/19 08/01/19 14:29 14:29 Creatine Kinase 138 CK-MB (CK-2) 0.85 Troponin I 0.045 Impressions: Head CT 08/01/19 16:04 IMPRESSION: NORMAL BRAIN CT WITHOUT CONTRAST. EVIDENCE OF ACUTE STROKE: NO. Status: Image reviewed by me Assessment & Plan - Diagnosis (1) Lung cancer Qualifiers: Laterality: right Lung location: upper lobe of lung Qualified Code(s): C34.11 - Malignant neoplasm of upper lobe, right bronchus or lung Is this a current diagnosis for this admission?: Yes Plan: Stage III right lung cancer, probable that there was some residual effects of the concurrent chemoradiation causing dehydration, now that he has been adequately hydrated he should do better. He feels ready to go home, but I told him that he should get up and move around and see that he could do that without getting dizzier without heavy assistance. Hemoglobin had dropped, but that is also some element of treatment effect, his hemoglobin was in the 9-10 range in our office so I will think it is too far off. We will recheck it in office. Originally, CT imaging done recently indicated great response to therapy, so the plan was for repeat CT in 3 months for surveillance. So I was not going to see him until October. But now that he has had this admission we will plan on seeing him late next week once he is discharged here. Of note CT of the head was negative for any issues going there, so I do not believe the falls were related to brain metastasis. If he still has falls with appropriate hydration as an outpatient we may consider MRI of the brain. But his initial imaging of the brain prior to treatment initiation was negative. - Time Time Spent: Greater than 70 Minutes
[2019-08-02] MEDS ORDERED: CLOPIDOGREL BISULFATE 75 MG TABLET PO SCH (10:00)
[2019-08-02] MEDS ORDERED: ENOXAPARIN SODIUM INJ 40 MG/0.4 ML DISP.SYRIN SUBCUT SCH (10:00)
[2019-08-02] MEDS ORDERED: ASPIRIN 81 MG TABLET, ENT COATED PO SCH (10:00)
--- NOTE | 2019-08-02 10:44 | PDOC DISCHARGE SUMMARY ---
Impression - Admit/DC Date/PCP Admission Date/Primary Care Provider: 08/01/19 18:05 FRANK AGUILAR MD Discharge Date: 08/02/19 - Discharge Diagnosis (1) Dehydration Is this a current diagnosis for this admission?: Yes (2) Generalized weakness Is this a current diagnosis for this admission?: Yes (3) Hypotension Is this a current diagnosis for this admission?: Yes (4) CARLOS (acute kidney injury) Is this a current diagnosis for this admission?: Yes (5) Lung cancer Is this a current diagnosis for this admission?: Yes (6) CAD (coronary artery disease) Is this a current diagnosis for this admission?: Yes - Assessment Summary: Please follow-up medical reconciliation as patient and do not have medication list currently but will bring in list tomorrow. - Additional Information Resuscitation Status: Do Not Resuscitate Discharge Diet: As Tolerated Discharge Activity: Activity As Tolerated Referrals: FRANK AGUILAR MD [Primary Care Provider] - Follow up as needed CATERINA CHEUNG MD [ACTIVE STAFF] - History of Present Illiness History of Present Illness: LIDA GRIGGS is a 73 year old male with a history of lung cancer s/p right lung resection radiation and chemotherapy [last 05/2019], CHF with AICD, CAD with stents, achalasia, distant history of peptic ulcer disease, who was brought in by his after patient experienced a fall. notes that patient has been very fatigued and this morning he defecated on himself in bed. Later on try to get up from bed patient slipped and fell to the floor and was unable to get up until his 's brother came to the house to help him up. In the ER patient was noted to be hypotensive with systolic blood pressure in the 70s. Head CT was done which was negative. Patient was given IV fluids and referred to hospitalist service for admission. Patient notes increased frequency of his bowel movements but denies any loose diarrhea. He has also been taking his Lasix daily as prescribed. He admits to sufficient food intake but his is concerned that he may not be consuming enough fluids though patient himself does say that he feels that he does. Otherwise patient denies any chest pain fever or chills. States that he feels well and would like to go home soon. Hospital Course Hospital Course: (1) Hypotension Most likely secondary to dehydration from poor oral intake Resolved with IV fluids. Is able to tolerate diet now and doing well. He wants to go home today. He is ambulating without any difficulty. (2) Generalized weakness Had a fall. Head CT shows no acute events. Ambulating well without no problems. Wants to go home. (3) Dehydration IV fluids as above. Encourage p.o. fluids. (4) Lung cancer We consulted Dr. Cheung who is patient's primary oncologist. He will follow-up outpatient. (5) CAD (coronary artery disease) Continue aspirin, Plavix, statin, nitroglycerin and beta-payal. (6) CARLOS (acute kidney injury) Resolved with IV fluids Okay for discharge. Follow-up with Dr. Cheung outpatient. 35 minutes spent on discharge. Physical Exam Vital Signs: Temp Pulse Resp BP Pulse Ox 97.5 F 88 14 149/65 H 91 L 08/02/19 08:00 08/02/19 09:21 08/02/19 09:21 08/02/19 08:00 08/02/19 09:21 Intake & Output 08/01/19 08/02/19 08/03/19 06:59 06:59 06:59 Intake Total 3120 Output Total 300 Balance 2820 Weight 147 lb 11.355 oz 147 lb 11.355 oz Exam: Patient is no acute distress Alert oriented to time place person No anxiety or depression Head: atraumatic normocephalic Pupils: are equal reactive Heart: Regular rate and rhythm Lungs: clear no distress Abdomen: nontender nondistended Neurological exam: unremarkable Results Laboratory Results: WBC 4.6 10^3/uL (4.0-10.5) 08/02/19 05:46 RBC 2.91 10^6/uL (4.35-5.55) L 08/02/19 05:46 Hgb 8.7 g/dL (13.5-17.0) L D 08/02/19 05:46 Hct 25.4 % (37.9-51.0) L 08/02/19 05:46 MCV 87 fl (80-97) 08/02/19 05:46 MCH 29.8 pg (27.0-33.4) 08/02/19 05:46 MCHC 34.2 g/dL (32.0-36.0) 08/02/19 05:46 RDW 14.2 % (11.5-14.0) H 08/02/19 05:46 Plt Count 195 10^3/uL (150-450) 08/02/19 05:46 Lymph % (Auto) 11.1 % (13-45) L 08/02/19 05:46 [place] % (Auto) 9.7 % (3-13) 08/02/19 05:46 Eos % (Auto) 6.1 % (0-6) H 08/02/19 05:46 Baso % (Auto) 0.4 % (0-2) 08/02/19 05:46 Absolute Neuts (auto) 3.3 10^3/uL (1.7-8.2) 08/02/19 05:46 Absolute Lymphs (auto) 0.5 10^3/uL (0.5-4.7) 08/02/19 05:46 Absolute Monos (auto) 0.4 10^3/uL (0.1-1.4) 08/02/19 05:46 Absolute Eos (auto) 0.3 10^3/uL (0.0-0.6) 08/02/19 05:46 Absolute Basos (auto) 0.0 10^3/uL (0.0-0.2) 08/02/19 05:46 Total Counted 100 08/01/19 14:29 Seg Neutrophils % 72.7 % (42-78) 08/02/19 05:46 Seg Neuts % (Manual) 93 % (42-78) H 08/01/19 14:29 Lymphocytes % (Manual) 2 % (13-45) L 08/01/19 14:29 Monocytes % (Manual) 1 % (3-13) L 08/01/19 14:29 Eosinophils % (Manual) 4 % (0-6) 08/01/19 14:29 Basophils % (Manual) 0 % (0-2) 08/01/19 14:29 Abs Neuts (Manual) 9.5 10^3/uL (1.7-8.2) H 08/01/19 14:29 Abs Lymphs (Manual) 0.2 10^3/uL (0.5-4.7) L 08/01/19 14:29 Abs Monocytes (Manual) 0.1 10^3/uL (0.1-1.4) 08/01/19 14:29 Absolute Eos (Manual) 0.4 10^3/uL (0.0-0.6) 08/01/19 14:29 Abs Basophils (Manual) 0.0 10^3/uL (0.0-0.2) 08/01/19 14:29 Platelet Comment ADEQUATE 08/01/19 14:29 Hypochromasia SLIGHT 08/01/19 14:29 Anisocytosis SLIGHT 08/01/19 14:29 VBG pH 7.42 (7.30-7.42) 08/01/19 14:29 VBG pCO2 49.3 mmHg (35-63) 08/01/19 14:29 VBG HCO3 31.2 mmol/L (20-32) 08/01/19 14:29 VBG Base Excess 5.8 mmol/L 08/01/19 14:29 Sodium 140.4 mmol/L (137-145) 08/02/19 05:46 Potassium 3.6 mmol/L (3.6-5.0) 08/02/19 05:46 Chloride 107 mmol/L (98-107) 08/02/19 05:46 Carbon Dioxide 25 mmol/L (22-30) 08/02/19 05:46 Anion Gap 8 (5-19) 08/02/19 05:46 BUN 19 mg/dL (7-20) 08/02/19 05:46 Creatinine 1.13 mg/dL (0.52-1.25) 08/02/19 05:46 Est GFR ( Amer) > 60 (>60) 08/02/19 05:46 Est GFR (MDRD) Non-Af > 60 (>60) 08/02/19 05:46 Glucose 80 mg/dL (75-110) 08/02/19 05:46 POC Glucose 95 mg/dL (70-110) 08/01/19 14:51 Lactic Acid 1.3 mmol/L (0.7-2.1) 08/01/19 14:29 Calcium 8.4 mg/dL (8.4-10.2) 08/02/19 05:46 Phosphorus 2.8 mg/dL (2.5-4.5) 08/02/19 05:46 Total Bilirubin 0.8 mg/dL (0.2-1.3) 08/01/19 14:29 Direct Bilirubin 0.3 mg/dL (0.0-0.4) 08/01/19 14:29 Neonat Total Bilirubin Not Reportable 08/01/19 14:29 Neonat Direct Bilirubin Not Reportable 08/01/19 14:29 Neonat Indirect Bili Not Reportable 08/01/19 14:29 AST 29 U/L (17-59) 08/01/19 14:29 ALT 10 U/L (<50) 08/01/19 14:29 Alkaline Phosphatase 86 U/L (38-126) 08/01/19 14:29 Creatine Kinase 138 U/L (55-170) 08/01/19 14:29 CK-MB (CK-2) 0.85 ng/mL (<4.55) 08/01/19 14:29 Troponin I 0.045 ng/mL 08/01/19 14:29 Total Protein 7.2 g/dL (6.3-8.2) 08/01/19 14:29 Albumin 4.1 g/dL (3.5-5.0) 08/01/19 14:29 Urine Color YELLOW 08/01/19 16:59 Urine Appearance CLEAR 08/01/19 16:59 Urine pH 5.0 (5.0-9.0) 08/01/19 16:59 Ur Specific [place] 1.010 08/01/19 16:59 Urine Protein NEGATIVE mg/dL (NEGATIVE) 08/01/19 16:59 Urine Glucose (UA) NEGATIVE mg/dL (NEGATIVE) 08/01/19 16:59 Urine Ketones NEGATIVE mg/dL (NEGATIVE) 08/01/19 16:59 Urine Blood NEGATIVE (NEGATIVE) 08/01/19 16:59 Urine Nitrite NEGATIVE (NEGATIVE) 08/01/19 16:59 Urine Bilirubin NEGATIVE (NEGATIVE) 08/01/19 16:59 Urine Urobilinogen NEGATIVE mg/dL (<2.0) 08/01/19 16:59 Ur Leukocyte Esterase NEGATIVE (NEGATIVE) 08/01/19 16:59 Urine WBC (Auto) 0 /HPF 08/01/19 16:59 Urine RBC (Auto) 0 /HPF 08/01/19 16:59 U Hyaline Cast (Auto) 12 /LPF 08/01/19 16:59 Urine Bacteria (Auto) TRACE /HPF 08/01/19 16:59 Urine Mucus (Auto) OCC /LPF 08/01/19 16:59 Urine Ascorbic Acid 20 (NEGATIVE) H 08/01/19 16:59 08/01/19 14:29 CK-MB (CK-2) 0.85 Troponin I 0.045 Impressions: Head CT 08/01/19 16:04 IMPRESSION: NORMAL BRAIN CT WITHOUT CONTRAST. EVIDENCE OF ACUTE STROKE: NO. Stroke Is this a Stroke Patient?: No Acute Heart Failure - Is this a Heart Failure Patient?: No
[2019-08-02] MEDS: CARVEDILOL 3.125 MG TABLET PO SCH (10:45)
== END 2019-08-02 12:15 | disposition home or self-care (01) | DRG 683 ==
LOC: ER 14:18 → EH 18:05 → 4N 23:00
PROVIDERS: ADMIT Internal Medicine; ATTEND Internal Medicine
DX: N17.9 Acute kidney failure, unspecified (principal); C34.11 Malignant neoplasm of upper lobe, right bronchus or lung; K22.0 Achalasia of cardia; I95.89 Other hypotension; I50.9 Heart failure, unspecified; I11.0 Hypertensive heart disease with heart failure; E86.0 Dehydration; E86.1 Hypovolemia; I25.10 Atherosclerotic heart disease of native coronary artery without angina pectoris; Z66 Do not resuscitate; W18.30XA Fall on same level, unspecified, initial encounter; J44.9 Chronic obstructive pulmonary disease, unspecified; K21.9 Gastro-esophageal reflux disease without esophagitis; M19.011 Primary osteoarthritis, right shoulder; Z90.2 Acquired absence of lung [part of]; Z92.3 Personal history of irradiation; Z92.21 Personal history of antineoplastic chemotherapy; Z95.810 Presence of automatic (implantable) cardiac defibrillator; Z95.5 Presence of coronary angioplasty implant and graft; Y92.019 Unspecified place in single-family (private) house as the place of occurrence of the external cause; Z79.82 Long term (current) use of aspirin; Z79.02 Long term (current) use of antithrombotics/antiplatelets; I25.2 Old myocardial infarction; Z88.6 Allergy status to analgesic agent; Z87.891 Personal history of nicotine dependence; Z82.49 Family history of ischemic heart disease and other diseases of the circulatory system
CPT/HCPCS: 36415; 70450; 80048; 80053; 81001; 82550; 82553; 82803; 82962; 83605; 84100; 84484; 85025; 93005; 93010; 96360; 96361; 99291; J3490; J7030

== ENCOUNTER 2019-08-03 07:01 | Observation (INO) | payer MEDICARE, OTHER ==
[2019-08-03 08:14] LABS: HEMATOCRIT 29.1 % (37.9-51.0); HEMOGLOBIN 9.9 g/dL (13.5-17.0); MEAN CORPUSCULAR HGB CONC 34.1 g/dL (32.0-36.0); MEAN CORPUSCULAR VOLUME 88 fl (80-97); PLATELET COUNT 242 10^3/uL (150-450); RED BLOOD COUNT 3.31 10^6/uL (4.35-5.55); RED CELL DISTRIBUTION WIDTH 14.3 % (11.5-14.0); WHITE BLOOD COUNT 8.2 10^3/uL (4.0-10.5)
--- NOTE | 2019-08-03 08:19 | ER Document Report ---
ED General - General Chief Complaint: Shortness Of Breath Stated Complaint: SHORTNESS OF BREATH Time Seen by Provider: 08/03/19 08:15 Primary Care Provider: FRANK AGUILAR MD [Primary Care Provider] - Follow up as needed TRAVEL OUTSIDE OF THE [place] IN LAST 30 DAYS: No - HPI Notes: 73-year-old male with a history of COPD, colon resection, pacemaker, 3 stents with an FL and recently finished chemo for lung cancer presents to the emergency room for complaints of shortness of breath that started around 2:00 this morning. Patient was recently discharged from the hospital yesterday for dehydration. Patient was treated for pneumonia while admitted. Patient does take a baby aspirin as well as aspirin. Patient states he was coughing up blood this morning. Denies any fevers or chills. Decreased eating but drinking without issues. Denies fevers, chills, chest pain,palpitations, nausea, vomiting, diarrhea, abdominal pain, hematuria,blurred vision, double vision, loss of vision, speech changes, LH, dizziness, syncope, headaches,ST, URI, neck pain, weakness, bowel or bladder dysfunction, saddle anesthesia, numbness or tingling in bilateral upper or lower extremities equally, muscle paralysis, weakness in bilateral upper or lower extremities equally or rash. - Related Data Allergies/Adverse Reactions: codeine [Codeine] Allergy (Severe, Verified 08/01/19 14:34) Chest pain Past Medical History - General Information source: Patient - Social History Smoking Status: Former Smoker Family History: Reviewed & Not Pertinent, Hypertension Patient has suicidal ideation: No Patient has homicidal ideation: No - Past Medical History Cardiac Medical History: Reports: Hx Heart Attack - 2004, STENTS X2, Hx Hypertension Denies: Hx Coronary Artery Disease Pulmonary Medical History: Reports: Hx COPD, Hx Pneumonia Denies: Hx Asthma, Hx Bronchitis Neurological Medical History: Denies: Hx Cerebrovascular Accident, Hx Seizures Endocrine Medical History: Denies: Hx Diabetes Mellitus Type 1, Hx Diabetes Mellitus Type 2 Renal/ Medical History: Denies: Hx Peritoneal Dialysis Malignancy Medical History: Reports Hx Lung Cancer GI Medical History: Reports: Hx Gastroesophageal Reflux Disease Musculoskeletal Medical History: Reports Hx Arthritis - R SHOULDER Past Surgical History: Reports: Hx Cardiac Catheterization - 3X stents placed, Hx Cardiac Surgery - pacemaker, Hx Orthopedic Surgery - back, NECK X 3 - Immunizations Hx Diphtheria, Pertussis, Tetanus Vaccination: No Hx Pneumococcal Vaccination: 07/12/10 Review of Systems - Review of Systems Constitutional: Chills EENT: No symptoms reported Cardiovascular: No symptoms reported Respiratory: See HPI Gastrointestinal: No symptoms reported Genitourinary: No symptoms reported Male Genitourinary: No symptoms reported Musculoskeletal: No symptoms reported Skin: No symptoms reported Hematologic/Lymphatic: No symptoms reported Neurological/Psychological: No symptoms reported Physical Exam - Vital signs Vitals: Resp 15 08/03/19 07:03 - Notes Notes: PHYSICAL EXAMINATION:reviewed vital signs by RN GENERAL: Chronically ill-appearing, malnourished and in no acute distress. HEAD: Atraumatic, normocephalic. EYES: Pupils equal round and reactive to light, extraocular movements intact, sclera anicteric, conjunctiva are normal. ENT: Nares patent, oropharynx clear without exudates. Moist mucous membranes. NECK: Normal range of motion, supple without lymphadenopathy LUNGS: Diminished breath sounds throughout, no breath sounds heard in right lower lobe no wheezes rales or rhonchi. HEART: Regular rate and rhythm without murmurs ABDOMEN: Soft, nontender, nondistended abdomen. No guarding, no rebound. No masses appreciated. Musculoskeletal: Normal range of motion, no pitting or edema. No cyanosis. NEUROLOGICAL: Cranial nerves grossly intact. Normal speech, normal gait. Normal sensory, motor exams PSYCH: Normal mood, normal affect. SKIN: Warm, Dry, normal turgor, no rashes or lesions noted. Course - Re-evaluation Re-evalutation: 08/03/19 11:03 Afebrile vital stable no distress. CBC negative for leukocytosis or anemia, CMP negative for hepatic or renal dysfunction, no electrolyte disturbances. BNP 20,000. CTA negative for PE, noted chronic scarring from COPD and right upper lobe pneumonia versus scarring from radiation. Troponin 0 0.037, will repeat troponin in 4 hours. EKG negative for non-STEMI or ST segment elevations/changes, pt is paced. Patient given 40 mg Lasix IVP. patient denies chest pain, will continue observation with trending troponins. patient admitted for observation on telemtry to medical service at 1030,by Dr. Dex Blair, further management and evaluation of pneumonia, CHF and right lower lobe pneumonia. Patient was agreeable this plan of care and verbalized understanding of this plan of care. - Vital Signs Vital signs: Temp Pulse Resp BP Pulse Ox 98.1 F 16 119/76 97 08/03/19 07:59 08/03/19 08:30 08/03/19 08:30 08/03/19 08:30 - Laboratory Result Diagrams: 08/03/19 07:50 08/03/19 07:50 Laboratory results interpreted by me: 08/03/19 08/03/19 08/03/19 07:50 07:50 07:50 RBC 3.31 L Hgb 9.9 L Hct 29.1 L RDW 14.3 H Seg Neuts % (Manual) 86 H Lymphocytes % (Manual) 4 L Abs Lymphs (Manual) 0.3 L Creatine Kinase 191 H NT-Pro-B Natriuret Pep 13975 H Total Protein 6.2 L Albumin 3.4 L Discharge - Discharge Clinical Impression: CHF (congestive heart failure), Right upper lobe pneumonia, Dyspnea Condition: Stable Disposition: ADMITTED OBSERVATION Admitting Provider: Johnnie (Hospitalist) Unit Admitted: Telemetry Referrals: FRANK AGUILAR MD [Primary Care Provider] - Follow up as needed
--- NOTE | 2019-08-03 08:24 | RADIOLOGY REPORT (SQ) ---
EXAM DESCRIPTION: CHEST SINGLE VIEW COMPLETED DATE/TIME: 08/03/2019 7:39 am REASON FOR STUDY: SOB COMPARISON: 04/08/2019. EXAM PARAMETERS: NUMBER OF VIEWS: One view. TECHNIQUE: Single frontal radiographic view of the chest acquired. RADIATION DOSE: NA LIMITATIONS: None. FINDINGS: LUNGS AND PLEURA: Airspace disease in the right upper lobe. Volume loss on the right lung . Pleural thickening in the right apex. Prominent interstitial markings. No large pleural effusion or pneumothorax. MEDIASTINUM AND HILAR STRUCTURES: No masses. Contour normal. HEART AND VASCULAR STRUCTURES: Heart normal in size. Normal vasculature. BONES: No acute findings. HARDWARE: Defibrillator, vascular port, spinal hardware. OTHER: No other significant finding. IMPRESSION: COPD WITH CHRONIC PLEURAL AND PARENCHYMAL SCARRING. AIRSPACE DISEASE IN THE RIGHT UPPER LOBE CONCERNING FOR PNEUMONIA. ALTERNATIVELY, IF THE PATIENT HAS RECEIVED FOCAL RADIATION, THIS COU LD BE RADIATION EFFECT. TECHNICAL DOCUMENTATION: JOB ID: [id number] [employer]- All Rights Reserved Reading location - IP/workstation name: [email or web address]
[2019-08-03 08:31] LABS: ALBUMIN 3.4 g/dL (3.5-5.0); ALKALINE PHOSPHATASE 81 U/L (38-126); ANION GAP 9 (5-19); ASPARTATE AMINO TRANSFERASE 31 U/L (17-59); BILIRUBIN,DIRECT 0.1 mg/dL (0.0-0.4); BILIRUBIN,TOTAL 0.8 mg/dL (0.2-1.3); BLOOD UREA NITROGEN 13 mg/dL (7-20); CALCIUM 8.8 mg/dL (8.4-10.2); CARBON DIOXIDE 25 mmol/L (22-30); CHLORIDE 106 mmol/L (98-107); CREATINE KINASE 191 U/L (55-170); GLUCOSE 98 mg/dL (75-110); POTASSIUM 3.6 mmol/L (3.6-5.0); TOTAL PROTEIN 6.2 g/dL (6.3-8.2)
[2019-08-03 08:47] LABS: ABSOLUTE LYMPHOCYTES# (MANUAL) 0.3 10^3/uL (0.5-4.7); ABSOLUTE MONOCYTES # (MANUAL) 0.7 10^3/uL (0.1-1.4); BASOPHILS % (MANUAL) 1 % (0-2); CREATINE KINASE MB 1.42 ng/mL (<4.55); EOSINOPHILS % (MANUAL) 1 % (0-6); LYMPHOCYTES % (MANUAL) 4 % (13-45); MONOCYTES % (MANUAL) 8 % (3-13); SEGMENTED NEUTROPHILS % (MAN) 86 % (42-78); TOTAL CELLS COUNTED 100
[2019-08-03 08:48] LABS: PLATELET COMMENT ADEQUATE; RBC MORPHOLOGY COMMENT NORMO-CYTIC/CHROMIC
[2019-08-03 09:01] LABS: TROPONIN I 0.036 ng/mL
[2019-08-03 09:31] LABS: INTERNATIONAL RATION (INR) 1.12; PROTHROMBIN TIME 14.5 SEC (11.4-15.4)
--- NOTE | 2019-08-03 09:56 | RADIOLOGY REPORT (SQ) ---
EXAM DESCRIPTION: CTA CHEST COMPLETED DATE/TIME: 08/03/2019 9:16 am REASON FOR STUDY: sob, dypnea, HR 100, 2LNC to keep 02>92% COMPARISON: Chest x-ray dated 08/03/2019. PET-CT dated 06/27/2019. CT chest dated 04/24/2019. TECHNIQUE: CT scan of the chest performed using helical scanning technique with dynamic intravenous contrast injection. Images reviewed with lung, soft tissue and bone windows. Reconstructed coronal and sagittal MPR images reviewed. Additional 3 dimensional post-processing performed to develop Maximal Intensity Projection images ([place] P). All images stored on PACS. All CT scanners at this facility use dose modulation, iterative reconstruction, and/or weight based d osing when appropriate to reduce radiation dose to as low as reasonably achievable (ALARA). [facility]: Dose Right [facility]: CareDose [facility]: Dose Right [facility]: Teradose 4D [facility]: TinderBox CONTRAST TYPE AND DOSE: contrast/concentration: Isovue 350.00 mg/ml; Total Contrast Delivered: 53.0 ml; Total Saline Delivered: 70.0 ml Contrast bolus optimized for the pulmonary arteries. Not diagnostic for the aorta. RENAL FUNCTION: BUN 13 creatinine 0.88. RADIATION DOSE: CT Rad equipment meets quality standard of care and radiation dose reduction techniq ues were employed. CTDIvol: 13.2 - 14.4 mGy. DLP: 546 mGy-cm. . LIMITATIONS: None. FINDINGS: LUNGS AND PLEURA: Emphysematous changes with chronic scarring. Pleural thickening on the right. Volume loss on the right. Extensive worsening parenchymal opacities scattered throughout the right lung, particularly in the right upper lobe. Scattered parenchymal opacities in the left lung. AORTA AND GREAT VESSELS: No aneurysm. Contrast bolus not optimized for the aorta. HEART: No pericardial effusion. No significant coronary artery calcifications. PULMONARY ARTERIES: No emboli visualized in the main pulmonary arteries or the segmental branches. HILAR AND MEDIASTINAL STRUCTURES: No identified masses or abnormal nodes. HARDWARE: Vascular port, defibrillator, hardware in the cervical spine. UPPER ABDOMEN: No significant findings. Hepatic cyst. Stent in the abdominal aorta. Limited exam. THYROID AND OTHER SOFT TISSUES: No masses. No adenopathy. BONES: No acute or significant finding. 3D MIPS: Confirm above findings. OTHER: No other significant finding. IMPRESSION: 1. NORMAL CTA OF THE CHEST. NO PULMONARY EMBOLI. 2. COPD WITH CHRONIC SCARRING. WORSENING PARENCHYMAL OPACITIES IN THE RIGHT LUNG. THIS COULD BE DUE TO NUMEROUS POSSIBLE ETIOLOGIES, INCLUDING WORSENING MALIGNANCY, PNEUMONITIS OR FIBROSIS FROM RADIAT ION THERAPY, OR ACUTE INFECTION. COMMENT: Quality ID # [id number]: Final reports with documentation of one or more dose reduction techniques (e.g., Automated exposure control, adjustment of the mA and/or kV according to patient size, use of iterative reconstruction technique) TECHNICAL DOCUMENTATION: JOB ID: [id number] [employer]- All Rights Reserved Reading location - IP/workstation name: [facility]-
[2019-08-03] MEDS ORDERED: FUROSEMIDE INJ/PF 40 MG/4 ML SDV IV ONE (10:04)
[2019-08-03 11:25] LABS: APPEARANCE,URINE CLEAR; BILIRUBIN,URINE NEGATIVE (NEGATIVE); COLOR,URINE STRAW; GLUCOSE, URINE NEGATIVE (NEGATIVE); KETONES,URINE TRACE mg/dL (NEGATIVE); LEUKOCYTE ESTERASE,URINE NEGATIVE (NEGATIVE); NITRITE,URINE NEGATIVE (NEGATIVE); PROTEIN,URINE NEGATIVE (NEGATIVE); URINE SPECIFIC GRAVITY 1.012; UROBILINOGEN,URINE NEGATIVE mg/dL (<2.0)
[2019-08-03] MEDS ORDERED: ALBUTEROL SULFATE 0.083% NEB 2.5 MG/3 ML AMPUL NEB PRN (12:43)
[2019-08-03] MEDS: CEFTRIAXONE 1 GM/D5W RTU 1 GM/50 ML RTUPB IV SCH (14:23)
[2019-08-03] MEDS: METHYLPREDNISOLONE INJ 40 MG/1 ML SDV IV SCH ×2 (14:24→21:43)
[2019-08-03] MEDS ORDERED: AZITHROMYCIN INJ 500 MG VIAL IV ONE (15:03)
[2019-08-03] MEDS: AZITHROMYCIN 500 MG in DEXTROSE 5%-WATER 250 ML IV SCH (15:10)
[2019-08-03] MEDS: IPRATROPIUM/ALBUTEROL 0.5-2.5 MG/3 ML AMPUL NEB SCH ×2 (16:00→20:40)
--- NOTE | 2019-08-03 17:12 | PDOC H&P ---
History of Present Illness Admission Date/PCP: 08/03/19 12:39 FRANK AGUILAR MD Patient complains of: Shortness of breath History of Present Illness: LIDA GRIGGS is a 73 year old male with a history of lung cancer s/p right lung resection radiation and chemotherapy [last 05/2019], CHF with AICD, CAD with stents, achalasia, distant history of peptic ulcer disease, who was discharged from this hospital yesterday. He was admitted for generalized weakness and hypotension dehydration. He also had a fall which was attributed to weakness. Patient was rehydrated and felt better and was able to be discharged to home. After going home he felt short of breath and he returned back to the emergency room. He is on home oxygen chronically. In the ER CT scan shows honeycombing and of the right upper lobe. Most likely due to radiation induced lung injury versus pneumonia. Patient was started on antibiotics and steroids and bronchodilators and he is currently feeling a lot better. Past Medical History Cardiac Medical History: Reports: Myocardial Infarction - 2005, STENTS X2, Hypertension Denies: Coronary Artery Disease Pulmonary Medical History: Reports: Chronic Obstructive Pulmonary Disease (COPD), Pneumonia Denies: Asthma, Bronchitis Neurological Medical History: Denies: Seizures Endocrine Medical History: Denies: Diabetes Mellitus Type 1, Diabetes Mellitus Type 2 Malignancy Medical History: Reports: Lung Cancer GI Medical History: Reports: Gastroesophageal Reflux Disease Musculoskeltal Medical History: Reports: Arthritis - R SHOULDER Hematology: Denies: Anemia - Denies anemia but states he use to take Iron daily Past Surgical History Past Surgical History: Reports: Cardiac Catheterization - 3X stents placed, Orthopedic Surgery - back, NECK X 3 Social History Smoking Status: Former Smoker Frequency of Alcohol Use: None Hx Recreational Drug Use: No Hx Prescription Drug Abuse: No - Advance Directive Resuscitation Status: Full Code Family History Family History: Reviewed & Not Pertinent, Hypertension Parental Family History Reviewed: Yes Children Family History Reviewed: Yes Sibling(s) Family History Reviewed.: Yes Medication/Allergy Allergies/Adverse Reactions: codeine [Codeine] Allergy (Severe, Verified 08/01/19 14:34) Chest pain Review of Systems All systems: reviewed and no additional remarkable complaints except as stated Physical Exam Vital Signs: Temp Pulse Resp BP Pulse Ox 98.7 F 87 16 122/75 95 08/03/19 15:01 08/03/19 16:00 08/03/19 16:00 08/03/19 15:00 08/03/19 16:00 Intake & Output 08/02/19 08/03/19 08/04/19 06:59 06:59 06:59 Intake Total 50 Balance 50 Weight 147 lb 11.355 oz Exam: Patient is no acute distress Alert oriented to time place person No anxiety or depression Head: atraumatic normocephalic Pupils: are equal reactive Neck: is supple and trachea is central no lymphadenopathy No pharyngeal erythema or exudates Heart: Regular rate and rhythm, no peripheral edema Lungs: Scattered wheezing bilaterally otherwise clear, no respiratory distress Abdomen: nontender nondistended Neurological exam: unremarkable Musculoskeletal: No joint swelling or effusion chronic lower back pain and tenderness No suicidal or homicidal ideation Results Laboratory Results: 08/03/19 07:50 08/03/19 07:50 08/03/19 08/03/19 08/03/19 07:50 07:50 11:02 WBC 8.2 RBC 3.31 L Hgb 9.9 L Hct 29.1 L MCV 88 MCH 30.0 MCHC 34.1 RDW 14.3 H Plt Count 242 Seg Neutrophils % Not Reportable Sodium 140.1 Potassium 3.6 Chloride 106 Carbon Dioxide 25 Anion Gap 9 BUN 13 Creatinine 0.88 Est GFR ( Amer) > 60 Glucose 98 Calcium 8.8 Total Bilirubin 0.8 AST 31 Alkaline Phosphatase 81 Total Protein 6.2 L Albumin 3.4 L Urine Color STRAW Urine Appearance CLEAR Urine pH 6.0 Ur Specific [place] 1.012 Urine Protein NEGATIVE Urine Glucose (UA) NEGATIVE Urine Ketones TRACE H Urine Blood NEGATIVE Urine Nitrite NEGATIVE Ur Leukocyte Esterase NEGATIVE Urine WBC (Auto) 1 Urine RBC (Auto) 0 08/03/19 08/03/19 08/03/19 07:50 07:50 11:02 Creatine Kinase 191 H CK-MB (CK-2) 1.42 Troponin I 0.036 0.059 NT-Pro-B Natriuret Pep [id number] H Impressions: Chest X-Ray 08/03/19 07:27 IMPRESSION: COPD WITH CHRONIC PLEURAL AND PARENCHYMAL SCARRING. AIRSPACE DISEASE IN THE RIGHT UPPER LOBE CONCERNING FOR PNEUMONIA. ALTERNATIVELY, IF THE PATIENT HAS RECEIVED FOCAL RADIATION, THIS COULD BE RADIATION EFFECT. Chest/Abdomen CTA 08/03/19 08:41 IMPRESSION: 1. NORMAL CTA OF THE CHEST. NO PULMONARY EMBOLI. 2. COPD WITH CHRONIC SCARRING. WORSENING PARENCHYMAL OPACITIES IN THE RIGHT LUNG. THIS COULD BE DUE TO NUMEROUS POSSIBLE ETIOLOGIES, INCLUDING WORSENING MALIGNANCY, PNEUMONITIS OR FIBROSIS FROM RADIATION THERAPY, OR ACUTE INFECTION. Assessment and Plan - Diagnosis (1) Radiation-induced pulmonary fibrosis Is this a current diagnosis for this admission?: Yes Plan: Start IV steroids (2) Right upper lobe pneumonia Is this a current diagnosis for this admission?: Yes Plan: Start empiric antibiotics (3) CAD (coronary artery disease) Qualifiers: Coronary Disease-Associated Artery/Lesion type: [place] artery [place] vs. transplanted heart: [place] heart Associated angina: angina presence unspecified Qualified Code(s): I25.10 - Atherosclerotic heart disease of [place] coronary artery without angina pectoris Is this a current diagnosis for this admission?: Yes Plan: Continue aspirin, Plavix, statin, nitroglycerin and beta-payal. (4) COPD (chronic obstructive pulmonary disease) Is this a current diagnosis for this admission?: Yes Plan: Continue aggressive bronchodilator treatments. (5) Lung cancer Qualifiers: Laterality: right Lung location: upper lobe of lung Qualified Code(s): C34.11 - Malignant neoplasm of upper lobe, right bronchus or lung Is this a current diagnosis for this admission?: Yes Plan: Status post chemotherapy and radiation therapy. Follow-up with Dr. Antonio bah.
[2019-08-03] MEDS: ACETAMINOPHEN 325 MG TABLET PO PRN (20:11)
[2019-08-04] MEDS: METHYLPREDNISOLONE INJ 40 MG/1 ML SDV IV SCH (06:46)
--- NOTE | 2019-08-04 07:13 | EKG REPORT ---
SEVERITY:- ABNORMAL ECG - ATRIAL-SENSED VENTRICULAR-PACED RHYTHM : Confirmed by: Ananth Dodge MD 04-Aug-2019 07:13:07
[2019-08-04] MEDS: IPRATROPIUM/ALBUTEROL 0.5-2.5 MG/3 ML AMPUL NEB SCH ×4 (08:20→20:02)
[2019-08-04] MEDS: CEFTRIAXONE 1 GM/D5W RTU 1 GM/50 ML RTUPB IV SCH (10:28)
[2019-08-04] MEDS: ACETAMINOPHEN 325 MG TABLET PO PRN ×2 (11:38→18:34)
[2019-08-04] MEDS ORDERED: AZITHROMYCIN INJ 500 MG VIAL IV SCH (12:42)
[2019-08-04] MEDS ORDERED: (PENDING PHARMACY ID) (Cyclobenzaprine Hcl [Flexeril 5 Mg Tablet] 5 MG) PO PRN (14:09)
[2019-08-04] MEDS ORDERED: TRAMADOL HCL 50 MG TABLET PO PRN (14:09)
--- NOTE | 2019-08-04 14:09 | PDOC PROGRESS REPORT ---
Subjective Progress Note for:: 08/04/19 Subjective:: Patient was seen and examined. He is much better today. He is using oxygen on and off. is at bedside. Reason For Visit: PNEUMONIA Physical Exam Vital Signs: Temp Pulse Resp BP Pulse Ox 97.3 F 77 16 117/62 95 08/04/19 11:10 08/04/19 11:45 08/04/19 11:45 08/04/19 11:10 08/04/19 11:45 Intake & Output 08/03/19 08/04/19 08/05/19 06:59 06:59 06:59 Intake Total 560 50 Output Total 200 Balance 360 50 Weight 148 lb 2.41 oz Exam: Patient is no acute distress Alert oriented to time place person No anxiety or depression Head: atraumatic normocephalic Pupils: are equal reactive Neck: is supple and trachea is central no lymphadenopathy No pharyngeal erythema or exudates Heart: Regular rate and rhythm, no peripheral edema Lungs: Scattered wheezing bilaterally otherwise clear, no respiratory distress Abdomen: nontender nondistended Neurological exam: unremarkable Musculoskeletal: No joint swelling or effusion chronic lower back pain and tenderness No suicidal or homicidal ideation Results Laboratory Results: 08/03/19 07:50 08/03/19 07:50 08/03/19 08/03/19 08/03/19 07:50 07:50 11:02 Creatine Kinase 191 H CK-MB (CK-2) 1.42 Troponin I 0.036 0.059 NT-Pro-B Natriuret Pep [id number] H Impressions: Chest X-Ray 08/03/19 07:27 IMPRESSION: COPD WITH CHRONIC PLEURAL AND PARENCHYMAL SCARRING. AIRSPACE DI SEASE IN THE RIGHT UPPER LOBE CONCERNING FOR PNEUMONIA. ALTERNATIVELY, IF THE PATIENT HAS RECEIVED FOCAL RADIATION, THIS COULD BE RADIATION EFFECT. Chest/Abdomen CTA 08/03/19 08:41 IMPRESSION: 1. NORMAL CTA OF THE CHEST. NO PULMONARY EMBOLI. 2. COPD WITH CHRONIC SCARRING. WORSENING PARENCHYMAL OPACITIES IN THE RIGHT LUNG. THIS COULD BE DUE TO NUMEROUS POSSIBLE ETIOLOGIES, INCLUDING WORSENING MALIGNANCY, PNEUMONITIS OR FIBROSIS FROM RADIATION THERAPY, OR ACUTE INFECTION. Assessment and Plan - Diagnosis (1) Radiation-induced pulmonary fibrosis Is this a current diagnosis for this admission?: Yes Plan: Switch from IV Solu-Medrol to p.o. prednisone. (2) Right upper lobe pneumonia Is this a current diagnosis for this admission?: Yes Plan: Continue empiric IV ceftriaxone and azithromycin (3) CAD (coronary artery disease) Qualifiers: Coronary Disease-Associated Artery/Lesion type: [place] artery [place] vs. transplanted heart: [place] heart Associated angina: angina presence unspeci fied Qualified Code(s): I25.10 - Atherosclerotic heart disease of [place] coronary artery without angina pectoris Is this a current diagnosis for this admission?: Yes Plan: Continue aspirin, Plavix, statin, nitroglycerin and beta-payal. (4) COPD (chronic obstructive pulmonary disease) Is this a current diagnosis for this admission?: Yes Plan: Continue aggressive bronchodilator treatments. (5) Lung cancer Qualifiers: Laterality: right Lung location: upper lobe of lung Qualified Code(s): C34.11 - Malignant neoplasm of upper lobe, right bronchus or lung Is this a current diagnosis for this admission?: Yes Plan: Status post chemotherapy and radiation therapy. Follow-up with Dr. Antonio bah.
[2019-08-04] MEDS ORDERED: CYCLOBENZAPRINE HCL 10 MG TABLET PO PRN (14:27)
[2019-08-04] MEDS: AZITHROMYCIN 500 MG in DEXTROSE 5%-WATER 250 ML IV SCH (15:39)
[2019-08-04] MEDS: PREDNISONE 20 MG TABLET PO SCH (16:01)
[2019-08-04] MEDS ORDERED: (PENDING PHARMACY ID) (Clonazepam [Klonopin] 0.5 MG) PO SCH (18:00)
[2019-08-04] MEDS: CLONAZEPAM 1 MG TABLET PO SCH (18:24)
[2019-08-04] MEDS ORDERED: TRAZODONE HCL 50 MG TABLET PO SCH (22:00)
[2019-08-04] MEDS ORDERED: FERROUS SULFATE 325 MG TABLET PO SCH (22:00)
[2019-08-04] MEDS ORDERED: CHOLECALCIFEROL (D3) 1,000 UNIT (25 MCG) TABLET PO SCH (22:00)
[2019-08-04] MEDS ORDERED: SIMVASTATIN 40 MG TABLET PO SCH (22:00)
[2019-08-04] MEDS ORDERED: (PENDING PHARMACY ID) (Cholecalciferol (Vitamin D3) [Vitamin D3 2000 Unit Tablet] 2,000 UN PO SCH (22:00)
[2019-08-04] MEDS ORDERED: CYANOCOBALAMIN (VITAMIN B-12) 1,000 MCG TABLET PO SCH (22:00)
[2019-08-04] MEDS ORDERED: DIGOXIN 0.125 MG TABLET PO SCH (22:00)
[2019-08-04] MEDS ORDERED: ASCORBIC ACID 500 MG TABLET PO SCH (22:00)
[2019-08-04] MEDS ORDERED: POTASSIUM CHLORIDE 10 MEQ TABLET.ER PO SCH (22:00)
[2019-08-04] MEDS ORDERED: (PENDING PHARMACY ID) (Ascorbate Calcium [Vitamin C] 500 MG) PO SCH (22:00)
[2019-08-04] MEDS: GABAPENTIN 300 MG CAPSULE PO SCH (22:03)
[2019-08-04] MEDS: CARVEDILOL 3.125 MG TABLET PO SCH (22:07)
[2019-08-05] MEDS: IPRATROPIUM/ALBUTEROL 0.5-2.5 MG/3 ML AMPUL NEB SCH ×2 (08:10→11:42)
[2019-08-05] MEDS: CLONAZEPAM 1 MG TABLET PO SCH (09:40)
[2019-08-05] MEDS: GABAPENTIN 300 MG CAPSULE PO SCH (09:40)
[2019-08-05] MEDS: CARVEDILOL 3.125 MG TABLET PO SCH (09:41)
[2019-08-05] MEDS: CEFTRIAXONE 1 GM/D5W RTU 1 GM/50 ML RTUPB IV SCH (09:41)
[2019-08-05] MEDS: PREDNISONE 20 MG TABLET PO SCH (09:41)
[2019-08-05] MEDS ORDERED: MULTIVITAMIN TABLET PO SCH (10:00)
[2019-08-05] MEDS ORDERED: (PENDING PHARMACY ID) (Escitalopram Oxalate [Lexapro] 10 MG) PO SCH (10:00)
[2019-08-05] MEDS ORDERED: MAGNESIUM OXIDE 400 MG TABLET PO SCH (10:00)
[2019-08-05] MEDS ORDERED: CLOPIDOGREL BISULFATE 75 MG TABLET PO SCH (10:00)
[2019-08-05] MEDS ORDERED: ASPIRIN 81 MG TABLET, ENT COATED PO SCH (10:00)
[2019-08-05] MEDS ORDERED: PANTOPRAZOLE SODIUM 40 MG TABLET.DR PO SCH (10:00)
[2019-08-05] MEDS ORDERED: FUROSEMIDE 20 MG TABLET PO SCH (10:00)
[2019-08-05] MEDS ORDERED: ESCITALOPRAM OXALATE 10 MG TABLET PO SCH (10:00)
[2019-08-05] MEDS ORDERED: FOLIC ACID 1 MG TABLET PO SCH (10:00)
[2019-08-05] MEDS ORDERED: (PENDING PHARMACY ID) (Magnesium Oxide [Magnesium] 400 MG) PO SCH (10:00)
--- NOTE | 2019-08-05 11:23 | PDOC DISCHARGE SUMMARY ---
Impression - Admit/DC Date/PCP Admission Date/Primary Care Provider: 08/03/19 12:39 FRANK AGUILAR MD Discharge Date: 08/05/19 - Discharge Diagnosis (1) Radiation-induced pulmonary fibrosis Is this a current diagnosis for this admission?: Yes (2) Right upper lobe pneumonia Is this a current diagnosis for this admission?: Yes (3) CAD (coronary artery disease) Is this a current diagnosis for this admission?: Yes (4) COPD (chronic obstructive pulmonary disease) Is this a current diagnosis for this admission?: Yes (5) Lung cancer Is this a current diagnosis for this admission?: Yes - Additional Information Resuscitation Status: Full Code Referrals: FRANK AGUILAR MD [Primary Care Provider] - 08/09/19 2:15 pm CATERINA CHEUNG MD [ACTIVE STAFF] - Prescriptions: Cefuroxime Axetil [Ceftin 500 mg Tablet] 1 tab PO BID #14 tablet Prednisone [Deltasone 20 mg Tablet] 40 mg PO DAILY #20 tablet Ipratropium/Albuterol Sulfate [Duoneb 3 ml Ampul] 3 ml NEB Q6H #90 vial.neb Albuterol Sulfate [Ventolin 0.083% Neb 2.5 mg/3 mL Ampul] 2.5 mg NEB Q2HP PRN #60 vial.neb PRN Reason: Azithromycin [Zithromax] 250 mg PO DAILY #5 tablet Home Medications: Ascorbate Calcium [Vitamin C] 500 mg PO QHS 08/04/19 Aspirin [Ecotrin 81 mg EC Tablet] 81 mg PO DAILY 08/04/19 Carvedilol [Coreg 3.125 mg Tablet] 3.125 mg PO Q12 08/04/19 Cholecalciferol (Vitamin D3) [Vitamin D3 2000 unit Tablet] 2,000 unit PO QHS 08/04/19 Clonazepam [Klonopin] 0.5 mg PO BID 08/04/19 Clopidogrel Bisulfate [Plavix 75 mg Tablet] 75 mg PO DAILY 08/04/19 Cyanocobalamin (Vitamin B-12) [B-12] 1,000 mcg PO QHS 08/04/19 Cyclobenzaprine HCl [Flexeril 5 mg Tablet] 5 mg PO HSP PRN 08/04/19 Digoxin [Lanoxin 0.125 mg Tablet] 0.125 mg PO QHS 08/04/19 Escitalopram Oxalate [Lexapro] 10 mg PO DAILY 08/04/19 Ferrous Sulfate [Iron] 325 mg PO QHS 08/04/19 Folic Acid 1 mg PO DAILY 08/04/19 Furosemide [Lasix 20 mg Tablet] 20 mg PO DAILY 08/04/19 Gabapentin [Neurontin 300 mg Capsule] 300 mg PO Q12 08/04/19 Magnesium Oxide [Magnesium] 400 mg PO DAILY 08/04/19 Multivitamin [Daily Multiple Vitamin] 1 each PO DAILY 08/04/19 Omeprazole 40 mg PO DAILY 08/04/19 Potassium Chloride [Klor-Con 10 Meq Tablet ER] 10 meq PO QHS 08/04/19 Simvastatin [Zocor 40 mg Tablet] 40 mg PO QHS 08/04/19 Tramadol HCl [Ultram] 50 mg PO TIDP PRN 08/04/19 Trazodone HCl [Desyrel 50 mg Tablet] 50 mg PO QHS 08/04/19 Albuterol Sulfate [Ventolin 0.083% Neb 2.5 mg/3 mL Ampul] 2.5 mg NEB Q2HP PRN #60 vial.neb 08/05/19 Azithromycin [Zithromax] 250 mg PO DAILY #5 tablet 08/05/19 Cefuroxime Axetil [Ceftin 500 mg Tablet] 1 tab PO BID #14 tablet 08/05/19 Ipratropium/Albuterol Sulfate [Duoneb 3 ml Ampul] 3 ml NEB Q6H #90 vial.neb 08/05/19 Prednisone [Deltasone 20 mg Tablet] 40 mg PO DAILY #20 tablet 08/05/19 History of Present Illiness History of Present Illness: LIDA GRIGGS is a 73 year old male with a history of lung cancer s/p right lung resection radiation and chemotherapy [last 05/2019], CHF with AICD, CAD with stents, achalasia, distant history of peptic ulcer disease, who was discharged from this hospital yesterday. He was admitted for generalized weakness and hypotension dehydration. He also had a fall which was attributed to weakness. Patient was rehydrated and felt better and was able to be discharged to home. After going home he felt short of breath and he returned back to the emergency room. He is on home oxygen chronically. In the ER CT scan shows honeycombing and of the right upper lobe. Most likely due to radiation induced lung injury versus pneumonia. Patient was started on antibiotics and steroids and bronchodilators and he is currently feeling a lot better. Hospital Course Hospital Course: (1) Radiation-induced pulmonary fibrosis Was initially started on IV Solu-Medrol, then switched to p.o. prednisone. Co ntinue course of prednisone outpatient. He will need to follow-up with his oncologist, primary care and mixer operator. He will probably need prednisone taper outpatient. (2) Right upper lobe pneumonia Started on empiric IV ceftriaxone and azithromycin. Will discharge on a course of oral Ceftin and azithromycin. (3) CAD (coronary artery disease) Continue aspirin, Plavix, statin, nitroglycerin and beta-payal. (4) COPD (chronic obstructive pulmonary disease) Continue aggressive bronchodilator treatments. (5) Lung cancer Status post chemotherapy and radiation therapy. Follow-up with Dr. Cheung outpatient. Physical Exam Vital Signs: Temp Pulse Resp BP Pulse Ox 98.0 F 60 16 136/58 H 94 08/05/19 08:00 08/05/19 08:10 08/05/19 08:10 08/05/19 08:00 08/05/19 08:10 Intake & Output 08/04/19 08/05/19 08/06/19 06:59 06:59 06:59 Intake Total 560 895 Output Total 200 720 Balance 360 175 Weight 148 lb 2.41 oz 148 lb 12.992 oz Exam: Patient is no acute distress Alert oriented to time place person No anxiety or depression Head: atraumatic normocephalic Pupils: are equal reactive Neck: is supple and trachea is central no lymphadenopathy No pharyngeal erythema or exudates Heart: Regular rate and rhythm, no peripheral edema Lungs: Scattered wheezing bilaterally otherwise clear, no respiratory distress Abdomen: nontender nondistended Neurological exam: unremarkable Musculoskeletal: No joint swelling or effusion chronic lower back pain and tenderness No suicidal or homicidal ideation Results Laboratory Results: WBC 8.2 10^3/uL (4.0-10.5) 08/03/19 07:50 RBC 3.31 10^6/uL (4.35-5.55) L 08/03/19 07:50 Hgb 9.9 g/dL (13.5-17.0) L 08/03/19 07:50 Hct 29.1 % (37.9-51.0) L 08/03/19 07:50 MCV 88 fl (80-97) 08/03/19 07:50 MCH 30.0 pg (27.0-33.4) 08/03/19 07:50 MCHC 34.1 g/dL (32.0-36.0) 08/03/19 07:50 RDW 14.3 % (11.5-14.0) H 08/03/19 07:50 Plt Count 242 10^3/uL (150-450) 08/03/19 07:50 Lymph % (Auto) Not Reportable 08/03/19 07:50 [place] % (Auto) Not Reportable 08/03/19 07:50 Eos % (Auto) Not Reportable 08/03/19 07:50 Baso % (Auto) Not Reportable 08/03/19 07:50 Absolute Neuts (auto) Not Reportable 08/03/19 07:50 Absolute Lymphs (auto) Not Reportable 08/03/19 07:50 Absolute Monos (auto) Not Reportable 08/03/19 07:50 Absolute Eos (auto) Not Reportable 08/03/19 07:50 Absolute Basos (auto) Not Reportable 08/03/19 07:50 Total Counted 100 08/03/19 07:50 Seg Neutrophils % Not Reportable 08/03/19 07:50 Seg Neuts % (Manual) 86 % (42-78) H 08/03/19 07:50 Lymphocytes % (Manual) 4 % (13-45) L 08/03/19 07:50 Monocytes % (Manual) 8 % (3-13) 08/03/19 07:50 Eosinophils % (Manual) 1 % (0-6) 08/03/19 07:50 Basophils % (Manual) 1 % (0-2) 08/03/19 07:50 Abs Neuts (Manual) 7.1 10^3/uL (1.7-8.2) 08/03/19 07:50 Abs Lymphs (Manual) 0.3 10^3/uL (0.5-4.7) L 08/03/19 07:50 Abs Monocytes (Manual) 0.7 10^3/uL (0.1-1.4) 08/03/19 07:50 Absolute Eos (Manual) 0.1 10^3/uL (0.0-0.6) 08/03/19 07:50 Abs Basophils (Manual) 0.1 10^3/uL (0.0-0.2) 08/03/19 07:50 Platelet Comment ADEQUATE 08/03/19 07:50 RBC Morph Comment NORMO-CYTIC/CHROMIC 08/03/19 07:50 PT 14.5 SEC (11.4-15.4) 08/03/19 07:50 INR 1.12 08/03/19 07:50 APTT 33.7 SEC (23.5-35.8) 08/03/19 07:50 Sodium 140.1 mmol/L (137-145) 08/03/19 07:50 Potassium 3.6 mmol/L (3.6-5.0) 08/03/19 07:50 Chloride 106 mmol/L (98-107) 08/03/19 07:50 Carbon Dioxide 25 mmol/L (22-30) 08/03/19 07:50 Anion Gap 9 (5-19) 08/03/19 07:50 BUN 13 mg/dL (7-20) 08/03/19 07:50 Creatinine 0.88 mg/dL (0.52-1.25) 08/03/19 07:50 Est GFR ( Amer) > 60 (>60) 08/03/19 07:50 Est GFR (MDRD) Non-Af > 60 (>60) 08/03/19 07:50 Glucose 98 mg/dL (75-110) 08/03/19 07:50 Calcium 8.8 mg/dL (8.4-10.2) 08/03/19 07:50 Total Bilirubin 0.8 mg/dL (0.2-1.3) 08/03/19 07:50 Direct Bilirubin 0.1 mg/dL (0.0-0.4) 08/03/19 07:50 Neonat Total Bilirubin Not Reportable 08/03/19 07:50 Neonat Direct Bilirubin Not Reportable 08/03/19 07:50 Neonat Indirect Bili Not Reportable 08/03/19 07:50 AST 31 U/L (17-59) 08/03/19 07:50 ALT 11 U/L (<50) 08/03/19 07:50 Alkaline Phosphatase 81 U/L (38-126) 08/03/19 07:50 Creatine Kinase 191 U/L (55-170) H 08/03/19 07:50 CK-MB (CK-2) 1.42 ng/mL (<4.55) 08/03/19 07:50 Troponin I 0.059 ng/mL 08/03/19 11:02 NT-Pro-B Natriuret Pep 16548 pg/mL (<125) H 08/03/19 07:50 Total Protein 6.2 g/dL (6.3-8.2) L 08/03/19 07:50 Albumin 3.4 g/dL (3.5-5.0) L 08/03/19 07:50 Urine Color STRAW 08/03/19 11:02 Urine Appearance CLEAR 08/03/19 11:02 Urine pH 6.0 (5.0-9.0) 08/03/19 11:02 Ur Specific [place] 1.012 08/03/19 11:02 Urine Protein NEGATIVE mg/dL (NEGATIVE) 08/03/19 11:02 Urine Glucose (UA) NEGATIVE mg/dL (NEGATIVE) 08/03/19 11:02 Urine Ketones TRACE mg/dL (NEGATIVE) H 08/03/19 11:02 Urine Blood NEGATIVE (NEGATIVE) 08/03/19 11:02 Urine Nitrite NEGATIVE (NEGATIVE) 08/03/19 11:02 Urine Bilirubin NEGATIVE (NEGATIVE) 08/03/19 11:02 Urine Urobilinogen NEGATIVE mg/dL (<2.0) 08/03/19 11:02 Ur Leukocyte Esterase NEGATIVE (NEGATIVE) 08/03/19 11:02 Urine WBC (Auto) 1 /HPF 08/03/19 11:02 Urine RBC (Auto) 0 /HPF 08/03/19 11:02 Urine Mucus (Auto) RARE /LPF 08/03/19 11:02 Urine Ascorbic Acid NEGATIVE (NEGATIVE) 08/03/19 11:02 08/03/19 08/03/19 07:50 11:02 CK-MB (CK-2) 1.42 Troponin I 0.036 0.059 NT-Pro-B Natriuret Pep [id number] H Impressions: Chest X-Ray 08/03/19 07:27 IMPRESSION: COPD WITH CHRONIC PLEURAL AND PARENCHYMAL SCARRING. AIRSPACE DISEASE IN THE RIGHT UPPER LOBE CONCERNING FOR PNEUMONIA. ALTERNATIVELY, IF THE PATIENT HAS RECEIVED FOCAL RADIATION, THIS COULD BE RADIATION EFFECT. Chest/Abdomen CTA 08/03/19 08:41 IMPRESSION: 1. NORMAL CTA OF THE CHEST. NO PULMONARY EMBOLI. 2. COPD WITH CHRONIC SCARRING. WORSENING PARENCHYMAL OPACITIES IN THE RIGHT LUNG. THIS COULD BE DUE TO NUMEROUS POSSIBLE ETIOLOGIES, INCLUDING WORSENING MALIGNANCY, PNEUMONITIS OR FIBROSIS FROM RADIATION THERAPY, OR ACUTE INFECTION. Plan Time Spent: Less than 30 Minutes Stroke Is this a Stroke Patient?: No Acute Heart Failure - Is this a Heart Failure Patient?: No
[2019-08-05 13:26] VITALS: BP 107/59
--- NOTE | 2019-08-05 14:26 | PDOC CONSULTATION ---
Consultation Consult Date: 08/04/19 Attending physician:: RADHA LEACH Provider Consulted: FLORENTINO ESCOBAR Consult reason:: Respiratory failure/PNA History of Present Illness Admission Date/PCP: 08/03/19 12:39 FRANK AGIULAR MD History of Present Illness: LIDA SHEN is a 73 year old male complains 2 to 3 days increasing shortness of breath EMT arrived to his home and gave intense nebulized treatment he improved and declined declined to come to the hospita. 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 He admits to smoking a pack a day for 40 years but has not smoked in the last 15 years. He is exposed to passive smoke as a child as well as an adult. He has no history of lung disease as a child or adolescent. One cat lives outside no recent travel. 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 Has angina-like chest pain sleeps on one pillow no PND no nocturnal cough he is unaware of any snoring restless sleep nocturia x2 he denies unrestful sleep or excessive daytime somnolence Past Medical History Cardiac Medical History: Reports: Myocardial Infarction - 2005, STENTS X2, Hypertension Denies: Coronary Artery Disease Pulmonary Medical History: Reports: Chronic Obstructive Pulmonary Disease (COPD), Pneumonia Denies: Asthma, Bronchitis Neurological Medical History: Denies: Seizures Endocrine Medical History: Denies: Diabetes Mellitus Type 1, Diabetes Mellitus Type 2 Malignancy Medical History: Reports: Lung Cancer GI Medical History: Reports: Gastroesophageal Reflux Disease Musculoskeltal Medical History: Reports: Arthritis - R SHOULDER Traumatic Medical History: Denies: Traumatic Brain Injury Hematology: Denies: Anemia - Denies anemia but states he use to take Iron daily , Sickle Cell Disease Infectious Medical History: Denies: HIV Past Surgical History Past Surgical History: Reports: Cardiac Catheterization - 3X stents placed, Orthopedic Surgery - back, NECK X 3 Social History Information Source: Patient, COUNT INCLUDES [facility] Records Have you worked as/with:: [employer] Smoking Status: Former Smoker Cigarettes Packs Per Day: 1 Number of Years Smokin Passive smoke exposure as: Both Frequency of Alcohol Use: None Hx Recreational Drug Use: No Hx Prescription Drug Abuse: No Do you have pets?: Yes Have you had any respiratory illnesses as a child?: No Have you been exposed to any sick contacts recently?: No Have you had any recent respiratory illnesses?: Yes Have you travelled outside of [place] in the past 12 months?: No - Advance Directive Resuscitation Status: Full Code Family History Family History: CAD, COPD, Hypertension Parental Family History Reviewed: Yes Children Family History Reviewed: Yes Sibling(s) Family History Reviewed.: Yes Medication/Allergy Home Medications: Ascorbate Calcium [Vitamin C] 500 mg PO QHS 08/04/19 Aspirin [Ecotrin 81 mg EC Tablet] 81 mg PO DAILY 08/04/19 Carvedilol [Coreg 3.125 mg Tablet] 3.125 mg PO Q12 08/04/19 Cholecalciferol (Vitamin D3) [Vitamin D3 2000 unit Tablet] 2,000 unit PO QHS 08/04/19 Clonazepam [Klonopin] 0.5 mg PO BID 08/04/19 Clopidogrel Bisulfate [Plavix 75 mg Tablet] 75 mg PO DAILY 08/04/19 Cyanocobalamin (Vitamin B-12) [B-12] 1,000 mcg PO QHS 08/04/19 Cyclobenzaprine HCl [Flexeril 5 mg Tablet] 5 mg PO HSP PRN 08/04/19 Digoxin [Lanoxin 0.125 mg Tablet] 0.125 mg PO QHS 08/04/19 Escitalopram Oxalate [Lexapro] 10 mg PO DAILY 08/04/19 Ferrous Sulfate [Iron] 325 mg PO QHS 08/04/19 Folic Acid 1 mg PO DAILY 08/04/19 Furosemide [Lasix 20 mg Tablet] 20 mg PO DAILY 08/04/19 Gabapentin [Neurontin 300 mg Capsule] 300 mg PO Q12 08/04/19 Magnesium Oxide [Magnesium] 400 mg PO DAILY 08/04/19 Multivitamin [Daily Multiple Vitamin] 1 each PO DAILY 08/04/19 Omeprazole 40 mg PO DAILY 08/04/19 Potassium Chloride [Klor-Con 10 Meq Tablet ER] 10 meq PO QHS 08/04/19 Simvastatin [Zocor 40 mg Tablet] 40 mg PO QHS 08/04/19 Tramadol HCl [Ultram] 50 mg PO TIDP PRN 08/04/19 Trazodone HCl [Desyrel 50 mg Tablet] 50 mg PO QHS 08/04/19 Albuterol Sulfate [Ventolin 0.083% Neb 2.5 mg/3 mL Ampul] 2.5 mg NEB Q2HP PRN #60 vial.neb 08/05/19 Azithromycin [Zithromax] 250 mg PO DAILY #5 tablet 08/05/19 Cefuroxime Axetil [Ceftin 500 mg Tablet] 1 tab PO BID #14 tablet 08/05/19 Ipratropium/Albuterol Sulfate [Duoneb 3 ml Ampul] 3 ml NEB Q6H #90 vial.[facility] 08/05/19 Prednisone [Deltasone 20 mg Tablet] 40 mg PO DAILY #20 tablet 08/05/19 Allergies/Adverse Reactions: codeine [Codeine] Allergy (Severe, Verified 08/01/19 14:34) Chest pain Review of Systems All systems: reviewed and no additional remarkable complaints except as stated Physical Exam Vital Signs: Temp Pulse Resp BP Pulse Ox 97.7 F 84 16 90/60 L 99 08/04/19 07:51 08/04/19 08:21 08/04/19 08:21 08/04/19 07:51 08/04/19 08:21 Intake & Output 08/03/19 08/04/19 08/05/19 06:59 06:59 06:59 Intake Total 560 Output Total 200 Balance 360 Weight 67.2 kg General appearance: PRESENT: no acute distress, cooperative, disheveled, thin, well-developed, well-nourished Head exam: PRESENT: atraumatic, normocephalic Eye exam: PRESENT: conjunctiva pale, EOMI. ABSENT: nystagmus, periorbital swelling, scleral icterus Mouth exam: PRESENT: moist, neck supple, tongue midline Teeth exam: PRESENT: edentulous Neck exam: ABSENT: carotid bruit, full ROM, JVD, lymphadenopathy, meningismus, tenderness, thyromegaly, tracheal deviation, tracheostomy, other Respiratory exam: PRESENT: crackles, decreased breath sounds, prolonged ex piratory phas, rhonchi, symmetrical, unlabored. ABSENT: rales, retraction, stridor, tachypnea Cardiovascular exam: PRESENT: RRR, +S1, +S2. ABSENT: tachycardia Pulses: PRESENT: normal radial pulses GI/Abdominal exam: PRESENT: soft. ABSENT: guarding, mass, tenderness Extremities exam: ABSENT: calf tenderness, clubbing, joint swelling, pedal edema Musculoskeletal exam: PRESENT: ambulatory. ABSENT: deformity, dislocation Neurological exam: PRESENT: alert, awake Psychiatric exam: PRESENT: appropriate affect Skin exam: PRESENT: dry, warm Results Laboratory Results: 08/03/19 07:50 08/03/19 07:50 08/03/19 11:02 Urine Color STRAW Urine Appearance CLEAR Urine pH 6.0 Ur Specific [place] 1.012 Urine Protein NEGATIVE Urine Glucose (UA) NEGATIVE Urine Ketones TRACE H Urine Blood NEGATIVE Urine Nitrite NEGATIVE Ur Leukocyte Esterase NEGATIVE Urine WBC (Auto) 1 Urine RBC (Auto) 0 08/03/19 08/03/19 08/03/19 07:50 07:50 11:02 Creatine Kinase 191 H CK-MB (CK-2) 1.42 Troponin I 0.036 0.059 NT-Pro-B Natriuret Pep [id number] H Impressions: Chest X-Ray 08/03/19 07:27 IMPRESSION: COPD WITH CHRONIC PLEURAL AND PARENCHYMAL SCARRING. AIRSPACE DISEASE IN THE RIGHT UPPER LOBE CONCERNING FOR PNEUMONIA. ALTERNATIVELY, IF THE PATIENT HAS RECEIVED FOCAL RADIATION, THIS COULD BE RADIATION EFFECT. Chest/Abdomen CTA 08/03/19 08:41 IMPRESSION: 1. NORMAL CTA OF THE CHEST. NO PULMONARY EMBOLI. 2. COPD WITH CHRONIC SCARRING. WORSENING PARENCHYMAL OPACITIES IN THE RIGHT LUNG. THIS COULD BE DUE TO NUMEROUS POSSIBLE ETIOLOGIES, INCLUDING WORSENING MALIGNANCY, PNEUMONITIS OR FIBROSIS FROM RADIATION THERAPY, OR ACUTE INFECTION. Assessment & Plan - Diagnosis (1) Radiation-induced pulmonary fibrosis Is this a current diagnosis for this admission?: Yes Plan: CT scan does not show some honeycombing by history this is the only obvious reason although he has been exposed [place] (2) Right upper lobe pneumonia Is this a current diagnosis for this admission?: Yes Plan: Improved (3) COPD (chronic obstructive pulmonary disease) Is this a current diagnosis for this admission?: Yes Plan: Generic Name Dose Route Start Last Admin Trade Name Freq PRN Reason Stop Dose Admin Albuterol 2.5 mg 08/03/19 12:43 Ventolin 0.083% Neb 2.5 Mg/3 Ml Ampul NEB 09/02/19 12:42 [id number] PRN SHORTNESS OF BREATH Albuterol/Ipratropium 3 ml 08/03/19 16:00 08/05/19 11:42 Duoneb 3 Ml Ampul NEB 09/02/19 15:59 Not Given [id number] SERVANDO Prednisone 40 mg 08/04/19 15:00 08/05/19 09:41 Deltasone 20 Mg Tablet PO 09/03/19 14:59 40 mg DAILY SERVANDO (4) Lung cancer Qualifiers: Laterality: right Lung location: upper lobe of lung Qualified Code(s): C34.11 - Malignant neoplasm of upper lobe, right bronchus or lung Is this a current diagnosis for this admission?: Yes Plan: He states that he is to for follow-up surgery with Dr. Wang thoracic surgery, [facility] he is also recently been introduced to Dr. Alvarez - Plan Summary Plan Summary: Thank you very much for allowing me to see Mr. Shen her participate in his care additional follow-up will be done in the office where I may adjust his medicatio n to long-acting beta agonist and long-acting muscarinic agent and also consider initiating anti-fibrotic medication
[2019-08-05] MEDS: AZITHROMYCIN 500 MG in DEXTROSE 5%-WATER 250 ML IV SCH (14:42)
== END 2019-08-05 14:59 | disposition home or self-care (01) ==
LOC: ER 07:01 → EH 11:23 → UNDOADMOB 11:23 → EH 12:39 → 4N 15:47
PROVIDERS: ADMIT Family Medicine; ATTEND Family Medicine
DX: J70.1 Chronic and other pulmonary manifestations due to radiation (principal); Y84.2 Radiological procedure and radiotherapy as the cause of abnormal reaction of the patient, or of later complication, without mention of misadventure at the time of the procedure; J18.8 Other pneumonia, unspecified organism; I25.10 Atherosclerotic heart disease of native coronary artery without angina pectoris; J44.9 Chronic obstructive pulmonary disease, unspecified; C34.11 Malignant neoplasm of upper lobe, right bronchus or lung; I11.0 Hypertensive heart disease with heart failure; I50.9 Heart failure, unspecified; K22.0 Achalasia of cardia; I25.2 Old myocardial infarction; R68.83 Chills (without fever); Z79.899 Other long term (current) drug therapy; Z79.82 Long term (current) use of aspirin; Z95.5 Presence of coronary angioplasty implant and graft; Z79.02 Long term (current) use of antithrombotics/antiplatelets; Z92.21 Personal history of antineoplastic chemotherapy; Z92.3 Personal history of irradiation; Z90.2 Acquired absence of lung [part of]; Z95.810 Presence of automatic (implantable) cardiac defibrillator; Z57.5 Occupational exposure to toxic agents in other industries; Z99.81 Dependence on supplemental oxygen; Z87.891 Personal history of nicotine dependence; Z87.11 Personal history of peptic ulcer disease; Z82.49 Family history of ischemic heart disease and other diseases of the circulatory system
CPT/HCPCS: 93005; 99285; 96374; 36415; 87040; 82553; 82550; 85025; 85610; 85730; 80053; 81001; 84484; 83880; 71045; 71275; 93010; 94640 ×3; G0378 ×3; A9270 ×28; J1940; J2920 ×2; J3490; J7060 ×2; J0456 ×2; J0696 ×3; J7512; J7620

== ENCOUNTER → 2019-08-28 | Outpatient (CLI) | payer MEDICARE, OTHER ==
--- NOTE | 2019-08-28 10:18 | RADIOLOGY REPORT (SQ) ---
EXAM DESCRIPTION: CT CHEST WITHOUT COMPLETED DATE/TIME: 08/28/2019 8:15 am REASON FOR STUDY: MALIGNANT NEOPLASM OF UPPER LOBE, RIGHT BRONCHUS OR LUNG C34.11 MALIGNANT NEOPLAS M OF UPPER LOBE, RIGHT BRONCHUS OR L COMPARISON: CTA of the chest from 08/03/2019. TECHNIQUE: CT scan performed of the chest without intravenous contrast. Images reviewed with lung, soft tissue and bone windows. Reconstructed coronal and sagittal MPR images reviewed. All images st ored on PACS. All CT scanners at this facility use dose modulation, iterative reconstruction, and/or weight based d osing when appropriate to reduce radiation dose to as low as reasonably achievable (ALARA). [facility]: Dose Right [facility]: CareDose [facility]: Dose Right [facility]: Teradose 4D [facility]: [employer] RADIATION DOSE: CT Rad equipment meets quality standard of care and radiation dose reduction techniq ues were employed. CTDIvol: 4.3 mGy. DLP: 177 mGy-cm. LIMITATIONS: No technical limitations. FINDINGS: LUNGS AND PLEURA: Stable surgical clips in the right hilum - correlate for prior right upp er lobectomy. There is nonocclusive debris within the right main bronchus. The bronchus intermedius and right middle and inferior lobar bronchi are patent. There is unchanged emphysema and bilateral bronchiectasis and bronchiolectasis. The parenchymal opacities in the superior segment of the right lower lobe are unchanged. The other parenchymal opacities that were present on the CTA from 0 have decreased. There is no sizable pleural effusion or pneumothorax. There is no pulmonary mass. HILAR AND MEDIASTINAL STRUCTURES: Evaluation is limited due to the absence of intravenous contrast. The mild left to right mediastinal shift is unchanged. There is a moderately-sized hiatal hernia. HEART AND VASCULAR STRUCTURES: No thoracic aortic aneurysm or intramural hematoma. The left ventricl e is enlarged. There is no pericardial effusion. The ICD leads terminate within the right atrial ap pendage and right ventricle. UPPER ABDOMEN: Stable hypodense lesions within segment 4 a (image 53 of series 4) and segment 3 (imag e 57 of series 2). The spleen is normal in size. There is no adrenal mass. The asymmetric atrophy of the right kidney is unchanged. There is a stable water attenuation exophytic lesion that arises f rom the posterior cortex of the right kidney. There is an endovascular stent-graft within the infrar enal abdominal aorta. THYROID AND OTHER SOFT TISSUES: Mild bilateral gynecomastia. There is no adenopathy. BONES: No fracture or osseous lesion. HARDWARE: As above. OTHER: No other findings. IMPRESSION: Improved bilateral parenchymal opacities as detailed above. TECHNICAL DOCUMENTATION: JOB ID: [id number] Quality ID # [id number]: Final reports with documentation of one or more dose reduction techniques (e.g., Au tomated exposure control, adjustment of the mA and/or kV according to patient size, use of iterative reconstruction technique) 2010 [employer]- All Rights Reserved Reading location - IP/workstation name: [email or web address]
== END ==
LOC: RAD 08:05
PROVIDERS: ATTEND Physician Assistant Medical
DX: C34.11 Malignant neoplasm of upper lobe, right bronchus or lung (principal)
CPT/HCPCS: 71250

== ENCOUNTER 2019-09-26 15:47 | Day surgery (SDC) | payer MEDICARE, OTHER ==
[2019-09-26] MEDS ORDERED: FENTANYL CITRATE INJ/PF 100 MCG/2 ML AMPUL ONE (15:49)
[2019-09-26] MEDS ORDERED: DIPHENHYDRAMINE HCL 50 MG/ML VIAL ONE (15:49)
[2019-09-26] MEDS ORDERED: ONDANSETRON HCL INJ/PF 4 MG/2 ML SDV ONE (15:49)
[2019-09-26] MEDS ORDERED: NALOXONE HCL INJ/PF 0.4 MG/1 ML SDV ONE (15:50)
[2019-09-26] MEDS ORDERED: MIDAZOLAM 2 MG/2 ML INJ ONE (15:50)
[2019-09-26] MEDS ORDERED: EPINEPHRINE INJ 1 MG/10 ML DISP.SYRIN ONE (15:50)
[2019-09-26] MEDS ORDERED: FLUMAZENIL INJ 0.5 MG/5 ML VIAL ONE (15:50)
[2019-09-26] MEDS ORDERED: GLUCAGON,HUMAN RECOMB 1 MG INJ ONE (15:50)
--- NOTE | 2019-09-26 16:52 | Operative Report ---
Operative Report DATE OF SURGERY: 09/26/19 Operative Report: Pre-op diagnosis: History of achalasia and dysphagia Post-op diagnosis: 1. 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 GE junction ulcer Surgery: Esophagogastroduodenoscopy with Botox injection, balloon dilation and biopsy Medications: Versed 2mg Fentanyl 50 Mcg IV push Tissue removed: Esophageal ulcer biopsy Procedure: After informed consent obtained from patient, the throat was sprayed with Hurricane and conscious sedation was achieved. The upper endoscope was inserted into the esophagus under direct vision and advanced into the stomach. The duodenum was entered and examined to the second part. Endoscope was then slowly pulled out of the patient as the mucosa was examined into details. Patient tolerated procedure well. Findings Esophagus: An area of muscular tightness was noted at the GE junction about 1 cm above the Z line. There was a 5 mm superficial ulceration at the stricture site which was eventually biopsied after the dilation and injection. Botox was then injected into 4 quadrants followed by 18mm balloon dilation . Antrum: Normal Body: Normal Fundus: Normal Duodenum first part: Normal Duodenum second part: Normal Plan: Await pathology. Continue omeprazole OPERATION: EGD with biopsy, balloon dilation and Botox injection
[2019-09-26] MEDS ORDERED: ONABOTULINUMTOXINA INJ/PF 100 UNIT SDV IJ ONE (17:00)
[2019-09-26 17:32] VITALS: BP 109/57
== END 2019-09-26 18:00 | disposition home or self-care (01) ==
LOC: END 15:47
PROVIDERS: ATTEND Internal Medicine Gastroenterology
DX: K22.0 Achalasia of cardia (principal); K25.9 Gastric ulcer, unspecified as acute or chronic, without hemorrhage or perforation; K22.2 Esophageal obstruction; K21.9 Gastro-esophageal reflux disease without esophagitis; E78.00 Pure hypercholesterolemia, unspecified; I25.10 Atherosclerotic heart disease of native coronary artery without angina pectoris; J44.9 Chronic obstructive pulmonary disease, unspecified; I50.9 Heart failure, unspecified; Z79.899 Other long term (current) drug therapy; Z79.02 Long term (current) use of antithrombotics/antiplatelets; Z79.891 Long term (current) use of opiate analgesic; Z95.810 Presence of automatic (implantable) cardiac defibrillator; Z85.828 Personal history of other malignant neoplasm of skin; Z85.118 Personal history of other malignant neoplasm of bronchus and lung
CPT/HCPCS: 43236; 43239; 43249; 88305 ×2; C1726; J2250; J3010; J0585; J1642; J0171; J1200; J1610; J2310; J2405; J3490

== ENCOUNTER → 2019-11-27 | Outpatient (CLI) | payer MEDICARE, OTHER ==
--- NOTE | 2019-11-27 08:54 | RADIOLOGY REPORT (SQ) ---
EXAM DESCRIPTION: CT CHEST WITHOUT IMAGES COMPLETED DATE/TIME: 11/27/2019 8:31 am REASON FOR STUDY: MALIGNANT NEOPLASM OF UPPER LOBE, RIGHT BRONCHUS OR LUNG C34.11 MALIGNANT NEOPLAS M OF UPPER LOBE, RIGHT BRONCHUS OR L COMPARISON: 08/28/2019 TECHNIQUE: CT scan performed of the chest without intravenous contrast. Images reviewed with lung, soft tissue and bone windows. Reconstructed coronal and sagittal MPR images reviewed. All images st ored on PACS. All CT scanners at this facility use dose modulation, iterative reconstruction, and/or weight based d osing when appropriate to reduce radiation dose to as low as reasonably achievable (ALARA). [facility]: Dose Right [facility]: CareDose [facility]: Dose Right [facility]: Teradose 4D [facility]: [employer] RADIATION DOSE: CT Rad equipment meets quality standard of care and radiation dose reduction techniq ues were employed. CTDIvol: 4.1 mGy. DLP: 178 mGy-cm. mGy. LIMITATIONS: No technical limitations. FINDINGS: LUNGS AND PLEURA: Postsurgical changes on the right with chronic pleural and parenchymal c hanges. There is volume loss and extensive scarring in the right upper lobe. Stable pneumatocele in the superior aspect of the right lung. No new nodules. No consolidation. Stable areas of pleural thickening. Emphysematous changes are again noted. HILAR AND MEDIASTINAL STRUCTURES: No pathologic adenopathy. The esophagus is distended and fluid-lauren led consistent with reflux. HEART AND VASCULAR STRUCTURES: No aneurysm. No pericardial effusion. UPPER ABDOMEN: Unchanged. THYROID AND OTHER SOFT TISSUES: No masses. No adenopathy. BONES: Healed right-sided rib fractures. HARDWARE: Battery pack and leads remain in place along with Sjunee-I-Gxhy and coronary artery stent. OTHER: Endovascular stent graft is in place. IMPRESSION: Stable postsurgical changes on the right along with emphysematous change. No evidence o f metastatic disease. TECHNICAL DOCUMENTATION: JOB ID: [id number] Quality ID # [id number]: Final reports with documentation of one or more dose reduction techniques (e.g., Au tomated exposure control, adjustment of the mA and/or kV according to patient size, use of iterative reconstruction technique) 2010 [employer]- All Rights Reserved Reading location - IP/workstation name: [email or web address]
== END ==
LOC: RAD 08:13
PROVIDERS: ATTEND Internal Medicine
DX: C34.11 Malignant neoplasm of upper lobe, right bronchus or lung (principal)
CPT/HCPCS: 71250

== ENCOUNTER → 2020-03-04 | Outpatient (CLI) | payer MEDICARE, OTHER ==
--- NOTE | 2020-03-04 11:16 | RADIOLOGY REPORT (SQ) ---
EXAM DESCRIPTION: CT CHEST WITHOUT IMAGES COMPLETED DATE/TIME: 03/04/2020 9:16 am REASON FOR STUDY: (C34.11)MALIGNANT NEOPLASM OF UPPER LOBE, RIGHT BRONCHUS OR LUNG C34.11 MALIGNANT NEOPLASM OF UPPER LOBE, RIGHT BRONCHUS OR L COMPARISON: 11/27/2019 TECHNIQUE: CT scan performed of the chest without intravenous contrast. Images reviewed with lung, soft tissue and bone windows. Reconstructed coronal and sagittal MPR images reviewed. All images st ored on PACS. All CT scanners at this facility use dose modulation, iterative reconstruction, and/or weight based d osing when appropriate to reduce radiation dose to as low as reasonably achievable (ALARA). [facility]: Dose Right [facility]: CareDose [facility]: Dose Right [facility]: Teradose 4D [facility]: [employer] RADIATION DOSE: CT Rad equipment meets quality standard of care and radiation dose reduction techniq ues were employed. CTDIvol: 4.0 mGy. DLP: 188 mGy-cm. mGy. LIMITATIONS: No technical limitations. FINDINGS: LUNGS AND PLEURA: Postsurgical change from right upper lobectomy. Extensive pleuroparench ymal consolidation within the right suprahilar region and apex, similar to prior. No new discrete pu lmonary mass. Emphysematous change with unchanged rightward mediastinal shift. No pleural effusion or pneumothorax. HILAR AND MEDIASTINAL STRUCTURES: Unchanged postsurgical changes within the right hilum with rightwar d mediastinal shift. HEART AND VASCULAR STRUCTURES: Normal heart size. Coronary atherosclerosis with evidence of prior co ronary stenting in the LAD. Trace pericardial effusion. UPPER ABDOMEN: No acute findings. Partially visualized aortoiliac stent graft. Unchanged right hepa tic cyst. THYROID AND OTHER SOFT TISSUES: No masses. No adenopathy. BONES: No significant finding. HARDWARE: Right internal jugular chest for with tip at cavoatrial junction. Left-sided cardiac pacer with leads in the right atrium, right ventricle and coronary sinus. LAD coronary stent. OTHER: No other significant findings. IMPRESSION: 1. Stable post treatment change within the right hemithorax without evidence of new int rathoracic disease. 2. Emphysema. Coronary atherosclerosis. Additional incidental findings above. TECHNICAL DOCUMENTATION: JOB ID: [id number] Quality ID # [id number]: Final reports with documentation of one or more dose reduction techniques (e.g., Au tomated exposure control, adjustment of the mA and/or kV according to patient size, use of iterative reconstruction technique) 2010 [employer]- All Rights Reserved Reading location - IP/workstation name: [email or web address]
== END ==
LOC: RAD 08:53
PROVIDERS: ATTEND Physician Assistant Medical
DX: C34.11 Malignant neoplasm of upper lobe, right bronchus or lung (principal)
CPT/HCPCS: 71250

== ENCOUNTER 2020-04-20 09:55 | Emergency (ER) | payer MEDICARE, OTHER ==
[2020-04-20 10:04] VITALS: BP 105/52
--- NOTE | 2020-04-20 10:44 | ER Document Report ---
ED General - General Stated Complaint: WOUND RECHECK Time Seen by Provider: 04/20/20 10:15 Primary Care Provider: SARWAT ESPINOZA MD [ACTIVE STAFF] - 04/22/20 VINCENT FOX DO [NO LOCAL MD] - Follow up as needed TRAVEL OUTSIDE OF THE [place] IN LAST 30 DAYS: No - HPI Notes: 74-year-old male presents emergency room for a left forearm wound check after he had a cancerous lesion excised by Dr. Espinoza, plastic surgeon, 2 days ago. Patient states that he takes Plavix, he states that he woke up this morning and there was bleeding on his forearm. He applied direct pressure, in the emergency room patient does not have any active bleeding. Denies any fevers or chills. Patient is requesting to have his wound cleaned up, is not placed on any antibiotic therapy. Patient takes Plavix for his anticoagulant therapy. Denies fevers, chills, chest pain,palpitations, shortness of breath, dyspnea, nausea, vomiting, diarrhea, abdominal pain, hematuria,LH, dizziness, syncope, headaches, wheezing, ST, URI, neck pain, weakness, bowel or bladder dysfunction, saddle anesthesia, numbness or tingling in bilateral upper or lower extremities equally, muscle paralysis, weakness in bilateral upper or lower extremities equally or rash. MEDICATIONS: I agree with the patient medications as charted by the RN. ALLERGIES: I agree with the allergies as charted by the RN. PAST MEDICAL HISTORY/PAST SURGICAL HISTORY: Reviewed and agree as charted by RN. SOCIAL HISTORY: Reviewed and agree as charted by RN. FAMILY HISTORY: No significant familial comorbid conditions directly related to patient complaint EXAM: Reviewed vital signs as charted by RN. REVIEW OF SYSTEMS:reviewed vital signs by RN CONSTITUTIONAL : Denies fever, chills, or sweats. Denies recent illness. EENT: Denies eye, ear, throat, or mouth pain or symptoms. Denies nasal or sinus congestion or discharge. Denies throat, tongue, or mouth swelling or difficulty swallowing. CARDIOVASCULAR: Denies chest pain. Denies palpitations or racing or irregular heart beat. Denies ankle edema. RESPIRATORY: Denies cough, cold, or chest congestion. Denies shortness of breath, difficulty breathing, or wheezing. GASTROINTESTINAL: Denies abdominal pain or distention. Denies nausea, vomiting, or diarrhea. Denies blood in vomitus, stools, or per rectum. Denies black, tarry stools. Denies constipation. GENITOURINARY: Denies difficulty urinating, painful urination, burning, frequency, blood in urine, or discharge. MUSCULOSKELETAL: Denies back or neck pain or stiffness. Denies joint pain or swelling. SKIN: Denies rash, lesions or sores. healing wound to distal to left elbow on forearm HEMATOLOGIC : Denies easy bruising or bleeding. LYMPHATIC: Denies swollen, enlarged glands. NEUROLOGICAL: Denies confusion or altered mental status. Denies passing out or loss of consciousness. Denies dizziness or lightheadedness. Denies headache. Denies weakness or paralysis or loss of use of either side. Denies problems with gait or speech. Denies sensory loss, numbness, or tingling. Denies seizures. PSYCHIATRIC: Denies anxiety or stress. Denies depression, suicidal ideation, or homicidal ideation. ALL OTHER SYSTEMS REVIEWED AND NEGATIVE. Dictation was performed using [employer] voice recognition software PHYSICAL EXAMINATION: GENERAL: Well-appearing, well-nourished and in no acute distress. HEAD: Atraumatic, normocephalic. EYES: Pupils equal round and reactive to light, extraocular movements intact, sclera anicteric, conjunctiva are normal. ENT: Nares patent, oropharynx clear without exudates. Moist mucous membranes. NECK: Normal range of motion, supple without lymphadenopathy LUNGS: Breath sounds clear to auscultation bilaterally and equal. No wheezes rales or rhonchi. HEART: Regular rate and rhythm without murmurs ABDOMEN: Soft, nontender, nondistended abdomen. No guarding, no rebound. No masses appreciated. Musculoskeletal: Normal range of motion, no pitting or edema. No cyanosis. NEUROLOGICAL: Cranial nerves grossly intact. Normal speech, normal gait. Normal sensory, motor exams PSYCH: Normal mood, normal affect. SKIN: Warm, Dry, normal turgor, no rashes or lesions noted. Wound ap proximately half a centimeter by half a centimeter without any bleeding, with surrounding erythema induration approximately 0.5 cm, distal to left elbow on forearm - Related Data Allergies/Adverse Reactions: codeine [Codeine] Allergy (Severe, Verified 08/01/19 14:34) Chest pain Past Medical History - General Information source: Patient - Social History Smoking Status: Unknown if Ever Smoked Family History: CAD, COPD, Hypertension - Past Medical History Cardiac Medical History: Reports: Hx Heart Attack - 2005, STENTS X2, Hx Hypertension Denies: Hx Coronary Artery Disease Pulmonary Medical History: Reports: Hx COPD, Hx Pneumonia Denies: Hx Asthma, Hx Bronchitis Neurological Medical History: Denies: Hx Cerebrovascular Accident, Hx Seizures Endocrine Medical History: Denies: Hx Diabetes Mellitus Type 1, Hx Diabetes Mellitus Type 2 Renal/ Medical History: Denies: Hx Peritoneal Dialysis Malignancy Medical History: Reports Hx Lung Cancer GI Medical History: Reports: Hx Gastroesophageal Reflux Disease Musculoskeletal Medical History: Reports Hx Arthritis - R SHOULDER Traumatic Medical History: Denies: Hx Traumatic Brain Injury Infectious Medical History: Denies: Hx HIV Past Surgical History: Reports: Hx Cardiac Catheterization - 3X stents placed, Hx Cardiac Surgery - pacemaker, Hx Orthopedic Surgery - back, NECK X 3 - Immunizations Hx Diphtheria, Pertussis, Tetanus Vaccination: No Hx Pneumococcal Vaccination: 07/12/10 Physical Exam - Vital signs Vitals: Temp Pulse Resp BP Pulse Ox 97.3 F 68 16 105/52 L 100 04/20/20 10:04 04/20/20 10:04 04/20/20 10:04 04/20/20 10:04 04/20/20 10:04 Course - Re-evaluation Re-evalutation: 04/20/20 17:35 Afebrile vital stable no distress. Nursing notes reviewed. Wound cleaned with normal saline. Will place patient on a 5-day course of antibiotic therapy to prevent any infection. Advised to follow-up with primary care provider within the next 28 to 48 hours for wound check. Advised to keep area covered, to apply direct pressure if it starts bleeding because he is on a blood thinner. Patient's vitals were stable. He did not appear to be in any distress or toxic whatsoever. Advised to after performing a Medical Screening Examination, I estimate there is LOW risk for OPEN FRACTURE, COMPARTMENT SYNDROME, TENDON RUPTURE, ACUTE NEUROVASCULAR INJURY, or RETAINED FOREIGN BODY, thus I consider the discharge disposition reasonable. Also, there is no evidence or peritonitis, sepsis, or toxicity. I have reevaluated this patient multiple times and no significant life threatening changes are noted. The patient and I have discussed the diagnosis and risks, and we agree with discharging home with close follow- up with the understanding that symptoms and presentations can change. We also discussed returning to the Emergency Department immediately if new or worsening symptoms occur. We have discussed the symptoms which are most concerning (e.g., changing or worsening pain, fever, numbness, weakness, cool or painful digits) that necessitate immediate return. - Vital Signs Vital signs: Temp Pulse Resp BP Pulse Ox 97.3 F 68 16 105/52 L 100 04/20/20 10:04 04/20/20 10:04 04/20/20 10:04 04/20/20 10:04 04/20/20 10:04 Discharge - Discharge Clinical Impression: Wound of left upper extremity Condition: Stable Disposition: HOME, SELF-CARE Additional Instructions: We will start you on a antibiotic twice a day for 5 days to prevent infection. Please wash and soap and water twice a day. Because you are on blood thinners, you do have delayed clotting times.if you notice that your wound starts to bleed, you need to apply direct pressure until the bleeding stops. This could be for several minutes after you apply direct pressure. Please follow-up with your primary care provider for having a wound recheck in 2 days. Return immediately for any new or worsening symptoms. Follow up with primary care provider, call tomorrow to make followup appointment. Prescriptions: Cephalexin Monohydrate [Keflex 500 mg Capsule] 500 mg PO BID 5 Days #10 tab Referrals: SARWAT SEPINOZA MD [ACTIVE STAFF] - 04/22/20 VINCENT FOX DO [NO LOCAL MD] - Follow up as needed
== END 2020-04-20 11:21 | disposition home or self-care (01) ==
LOC: ER 09:55
DX: L98.8 Other specified disorders of the skin and subcutaneous tissue (principal); Z98.890 Other specified postprocedural states; I25.2 Old myocardial infarction; I10 Essential (primary) hypertension
CPT/HCPCS: 99283

== ENCOUNTER 2020-04-25 12:15 | Emergency (ER) | payer MEDICARE, OTHER ==
--- NOTE | 2020-04-25 13:47 | ER Document Report ---
ED Medical Screen (RME) - General Stated Complaint: FALL, WOUND CHECK Time Seen by Provider: 04/25/20 13:31 Primary Care Provider: FRANK AGUILAR MD [Primary Care Provider] - Follow up as needed Notes: Patient is a 74-year-old male who presents to the emergency department for multiple falls ENT follow-up of a biopsy that was done on April 18. Patient states that he has had 2 falls this past week. States that he has had hit his head. He is currently on Plavix and aspirin. Denies any loss of consciousness. He called his primary care provider and they referred him to the emergency department for further work-up. Denies any shortness of breath, chest pain, difficulty breathing, or any other symptoms. Patient uses a cane for unsteady gait. Exam: Tenderness to right humerus area. Normal strength in all extremities. Biopsy site noted to left tricep area. Covered area with saline gauze. I have greeted and performed a rapid initial assessment of this patient. A comprehensive ED assessment and evaluation of the patient, analysis of test results and completion of medical decision making process will be conducted by an additional ED providers. TRAVEL OUTSIDE OF THE [place] IN LAST 30 DAYS: No - Related Data Allergies/Adverse Reactions: codeine [Codeine] Allergy (Severe, Verified 04/25/20 13:34) Chest pain Past Medical History - Past Medical History Cardiac Medical History: Reports: Hx Heart Attack - 2004, STENTS X2, Hx Hypertension Denies: Hx Coronary Artery Disease Pulmonary Medical History: Reports: Hx COPD, Hx Pneumonia Denies: Hx Asthma, Hx Bronchitis Neurological Medical History: Denies: Hx Cerebrovascular Accident, Hx Seizures Endocrine Medical History: Denies: Hx Diabetes Mellitus Type 1, Hx Diabetes Mellitus Type 2 Renal/ Medical History: Denies: Hx Peritoneal Dialysis Malignancy Medical History: Reports Hx Lung Cancer GI Medical History: Reports: Hx Gastroesophageal Reflux Disease Musculoskeltal Medical History: Reports Hx Arthritis - R SHOULDER Traumatic Medical History: Denies: Hx Traumatic Brain Injury Infectious Medical History: Denies: Hx HIV Past Surgical History: Reports: Hx Cardiac Catheterization - 3X stents placed, Hx Cardiac Surgery - pacemaker, Hx Orthopedic Surgery - back, NECK X 3 - Immunizations Hx Diphtheria, Pertussis, Tetanus Vaccination: No Physical Exam - Vital signs Vitals: Temp Pulse Resp BP Pulse Ox 98.6 F 75 16 98/54 L 100 04/25/20 13:14 04/25/20 13:14 04/25/20 13:14 04/25/20 13:14 04/25/20 13:14 Course - Vital Signs Vital signs: Temp Pulse Resp BP Pulse Ox 98.6 F 75 16 98/54 L 100 04/25/20 13:14 04/25/20 13:14 04/25/20 13:14 04/25/20 13:14 04/25/20 13:14 Doctor's Discharge - Discharge Referrals: FRANK AGUILAR MD [Primary Care Provider] - Follow up as needed
--- NOTE | 2020-04-25 14:35 | RADIOLOGY REPORT (SQ) ---
EXAM DESCRIPTION: CT HEAD WITHOUT IMAGES COMPLETED DATE/TIME: 04/25/2020 2:25 pm REASON FOR STUDY: fall; on plavix COMPARISON: 08/01/2019. TECHNIQUE: Axial images acquired through the brain without intravenous contrast. Images reviewed wi th bone, brain and subdural windows. Additional sagittal and coronal reconstructions were generated. Images stored on PACS. All CT scanners at this facility use dose modulation, iterative reconstruction, and/or weight based d osing when appropriate to reduce radiation dose to as low as reasonably achievable (ALARA). [facility]: Dose Right [facility]: CareDose [facility]: Dose Right [facility]: Teradose 4D [facility]: [employer] RADIATION DOSE: CT Rad equipment meets quality standard of care and radiation dose reduction techniq ues were employed. CTDIvol: 53.2 mGy. DLP: 1097 mGy-cm. mGy. LIMITATIONS: None. FINDINGS: VENTRICLES: Normal size and contour. CEREBRUM: No masses. No hemorrhage. No midline shift. No evidence for acute infarction. Normal gra y/white matter differentiation. No areas of low density in the white matter. CEREBELLUM: No masses. No hemorrhage. No alteration of density. No evidence for acute infarction. EXTRAAXIAL SPACES: No fluid collections. No masses. ORBITS AND GLOBE: No intra- or extraconal masses. Normal contour of globe without masses. CALVARIUM: No fracture. PARANASAL SINUSES: No fluid or mucosal thickening. SOFT TISSUES: No mass or hematoma. OTHER: No other significant finding. IMPRESSION: NORMAL BRAIN CT WITHOUT CONTRAST. EVIDENCE OF ACUTE STROKE: NO. COMMENT: Quality ID # [id number]: Final reports with documentation of one or more dose reduction techniques (e.g., Automated exposure control, adjustment of the mA and/or kV according to patient size, use of iterative reconstruction technique) TECHNICAL DOCUMENTATION: JOB ID: [id number] 2010 [employer]- All Rights Reserved Reading location - IP/workstation name: [email or web address]
[2020-04-25 14:36] LABS: ABSOLUTE EOSINOPHILS # (AUTO) 0.2 10^3/uL (0.0-0.6); ABSOLUTE LYMPHOCYTES (AUTO) 0.5 10^3/uL (0.5-4.7); ABSOLUTE MONOCYTES (AUTO) 0.5 10^3/uL (0.1-1.4); ABSOLUTE NEUT (AUTO) 4.7 10^3/uL (1.7-8.2); BASOPHILS % (AUTO) 0.3 % (0-2); EOSINOPHILS % (AUTO) 3.6 % (0-6); HEMATOCRIT 33.5 % (37.9-51.0); HEMOGLOBIN 11.5 g/dL (13.5-17.0); LYMPHOCYTES % (AUTO) 8.8 % (13-45); MEAN CORPUSCULAR HEMOGLOBIN 30.8 pg (27.0-33.4); MEAN CORPUSCULAR HGB CONC 34.3 g/dL (32.0-36.0); MEAN CORPUSCULAR VOLUME 90 fl (80-97); MONOCYTES % (AUTO) 8.8 % (3-13); PLATELET COUNT 188 10^3/uL (150-450); RED BLOOD COUNT 3.73 10^6/uL (4.35-5.55); RED CELL DISTRIBUTION WIDTH 13.6 % (11.5-14.0); SEGMENTED NEUTROPHILS % (AUTO) 78.5 % (42-78); TOTAL CELLS COUNTED % (AUTO) 100 %
[2020-04-25 14:37] LABS: APPEARANCE,URINE CLEAR; BILIRUBIN,URINE NEGATIVE (NEGATIVE); COLOR,URINE YELLOW; GLUCOSE, URINE NEGATIVE (NEGATIVE); KETONES,URINE NEGATIVE (NEGATIVE); PROTEIN,URINE NEGATIVE (NEGATIVE); URINE SPECIFIC GRAVITY 1.014; UROBILINOGEN,URINE NEGATIVE mg/dL (<2.0)
--- NOTE | 2020-04-25 14:38 | RADIOLOGY REPORT (SQ) ---
EXAM DESCRIPTION: CT CERVICAL SPINE WITHOUT IMAGES COMPLETED DATE/TIME: 04/25/2020 2:25 pm REASON FOR STUDY: multiple falls; on plavix COMPARISON: 03/04/2020. TECHNIQUE: Axial images acquired through the cervical spine without intravenous contrast. Images re viewed with lung, soft tissue and bone windows. Reconstructed coronal and sagittal MPR images review ed. Images stored on PACS. All CT scanners at this facility use dose modulation, iterative reconstruction, and/or weight based d osing when appropriate to reduce radiation dose to as low as reasonably achievable (ALARA). [facility]: Dose Right [facility]: CareDose [facility]: Dose Right [facility]: Teradose 4D [facility]: Ancera RADIATION DOSE: CT Rad equipment meets quality standard of care and radiation dose reduction techniq ues were employed. CTDIvol: 15.6 mGy. DLP: 366 mGy-cm. mGy. LIMITATIONS: None. FINDINGS: ALIGNMENT: Anatomic. MINERALIZATION: Normal. VERTEBRAL BODIES: No fractures or dislocation. DISCS: No significant disc disease. FACETS, LATERAL MASSES, POSTERIOR ELEMENTS: Facet arthropathy. No fractures. No dislocation. No ac tera findings. HARDWARE: Multilevel anterior and posterior hardware. VISUALIZED RIBS: No fractures. LUNG APICES AND SOFT TISSUES: Chronic findings in the right lung apex, unchanged from previous chest CT No significant or acute findings. OTHER: No other significant finding. IMPRESSION: SURGICAL CHANGES WITH HARDWARE. NO ACUTE FINDINGS IN THE CERVICAL SPINE. TECHNICAL DOCUMENTATION: JOB ID: [id number] Quality ID # [id number]: Final reports with documentation of one or more dose reduction techniques (e.g., Au tomated exposure control, adjustment of the mA and/or kV according to patient size, use of iterative reconstruction technique) 2010 [employer]- All Rights Reserved Reading location - IP/workstation name: [email or web address]
[2020-04-25 14:42] LABS: PARTIAL THROMBOPLASTIN TIME 27.1 SEC (23.5-35.8); PROTHROMBIN TIME 13.4 SEC (11.4-15.4)
[2020-04-25 14:46] LABS: ALBUMIN 4.2 g/dL (3.5-5.0); ALKALINE PHOSPHATASE 74 U/L (38-126); ANION GAP 10 (5-19); ASPARTATE AMINO TRANSFERASE 23 U/L (17-59); BILIRUBIN,DIRECT 0.4 mg/dL (0.0-0.4); BILIRUBIN,TOTAL 0.4 mg/dL (0.2-1.3); BLOOD UREA NITROGEN 19 mg/dL (7-20); CALCIUM 9.5 mg/dL (8.4-10.2); CARBON DIOXIDE 31 mmol/L (22-30); CHLORIDE 99 mmol/L (98-107); GLUCOSE 76 mg/dL (75-110); POTASSIUM 4.3 mmol/L (3.6-5.0); TOTAL PROTEIN 6.8 g/dL (6.3-8.2)
--- NOTE | 2020-04-25 14:58 | RADIOLOGY REPORT (SQ) ---
EXAM DESCRIPTION: HUMERUS RIGHT IMAGES COMPLETED DATE/TIME: 04/25/2020 2:47 pm REASON FOR STUDY: fall; right upper arm pain COMPARISON: None. NUMBER OF VIEWS: Two views. TECHNIQUE: Two radiographic images were acquired of the right humerus to include elbow and shoulder in at least one projection. LIMITATIONS: None. FINDINGS: MINERALIZATION: Normal. BONES: No acute fracture or dislocation. No worrisome bone lesions. SOFT TISSUES: No obvious swelling or foreign body. OTHER: No other significant finding. IMPRESSION: NEGATIVE STUDY OF THE RIGHT HUMERUS. NO RADIOGRAPHIC EVIDENCE OF ACUTE INJURY. TECHNICAL DOCUMENTATION: JOB ID: [id number] 2010 [email or web address]- All Rights Reserved Reading location - IP/workstation name: [email or web address]
--- NOTE | 2020-04-25 16:54 | ER Document Report ---
ED Fall - General Chief Complaint: Fall Injury Stated Complaint: FALL, WOUND CHECK Time Seen by Provider: 04/25/20 13:31 Primary Care Provider: FRANK AUGILAR MD [Primary Care Provider] - Follow up tomorrow Notes: Patient is a 74-year-old male who presents to the emergency department for multiple falls ENT follow-up of a biopsy that was done on April 18. Patient states that he has had 2 falls this past week. States that he has had hit his head. He is currently on Plavix and aspirin. Denies any loss of consciousness. He called his primary care provider and they referred him to the emergency department for further work-up. Denies any shortness of breath, chest pain, difficulty breathing, or any other symptoms. Denies any dizziness. Patient uses a cane for unsteady gait. TRAVEL OUTSIDE OF THE [place] IN LAST 30 DAYS: No - Related data Allergies/Adverse Reactions: codeine [Codeine] Allergy (Severe, Verified 04/25/20 13:34) Chest pain Past Medical History - Social History Smoking Status: Former Smoker Chew tobacco use (# tins/day): No Frequency of alcohol use: None Drug Abuse: None Family History: CAD, COPD, Hypertension - Past Medical History Cardiac Medical History: Reports: Hx Heart Attack - 2005, STENTS X2, Hx Hyper tension Denies: Hx Coronary Artery Disease Pulmonary Medical History: Reports: Hx COPD, Hx Pneumonia Denies: Hx Asthma, Hx Bronchitis Neurological Medical History: Denies: Hx Cerebrovascular Accident, Hx Seizures Endocrine Medical History: Denies: Hx Diabetes Mellitus Type 1, Hx Diabetes Mellitus Type 2 Renal/ Medical History: Denies: Hx Peritoneal Dialysis Malignancy Medical History: Reports Hx Lung Cancer GI Medical History: Reports: Hx Gastroesophageal Reflux Disease Musculoskeletal Medical History: Reports Hx Arthritis - R SHOULDER Traumatic Medical History: Denies: Hx Traumatic Brain Injury Infectious Medical History: Denies: Hx HIV Past Surgical History: Reports: Hx Cardiac Catheterization - 3X stents placed, Hx Cardiac Surgery - pacemaker, Hx Orthopedic Surgery - back, NECK X 3 - Immunizations Hx Diphtheria, Pertussis, Tetanus Vaccination: No Hx Pneumococcal Vaccination: 07/12/10 Review of Systems - Review of Systems Notes: REVIEW OF SYSTEMS: CONSTITUTIONAL : Denies recent illness. Denies recent unintentional weight loss. Denies fever, chills, or sweats. See HPI. EENT: Denies eye, ear, throat, or mouth pain, discharge, or symptoms. Denies nasal or sinus congestion. CARDIOVASCULAR: Denies chest pain. RESPIRATORY: Denies shortness of breath, cough, congestion, difficulty breathi ng, or wheezing. GASTROINTESTINAL: Denies nausea, vomiting, and diarrhea. Denies abdominal pain. Denies constipation. GENITOURINARY: Denies difficulty urinating, burning, blood in urine, urgency or frequency. MUSCULOSKELETAL: Denies neck and back pain. Denies joint pain or swelling. SKIN: See HPI. HEMATOLOGIC : Denies easy bruising or bleeding. LYMPHATIC: Denies swollen, painful, enlarged glands. NEUROLOGICAL: Denies new numbness or tingling denies weakness. Denies headache. Denies altered mental status. Denies alteration in speech. PSYCHIATRIC: Denies stress, anxiety, alteration in sleep patterns, or depression. All other systems reviewed and negative. Physical Exam - Vital signs Vitals: Temp Pulse Resp BP Pulse Ox 98.6 F 75 16 98/54 L 100 04/25/20 13:14 04/25/20 13:14 04/25/20 13:14 04/25/20 13:14 04/25/20 13:14 - Notes Notes: PHYSICAL EXAMINATION: GENERAL: Appears stated age, no acute distress. HEAD: Normocephalic, atraumatic. EYES: PERRL, conjunctiva normal, all extraocular movements intact, sclera nonicteric ENT: Moist mucous membranes. NECK: Supple, no noticeable swelling, redness, rash. Normal range of motion. LUNGS: Equal breath sounds bilaterally and clear to auscultation. No wheezes rales or rhonchi. CARDIOVASCULAR: S1-S2, regular rate, regular rhythm. Radial pulses 2+, normal. ABDOMEN: Normoactive bowel sounds. Soft, nontender, no guarding, no rebound tenderness, and no masses palpated. EXTREMITIES: Normal strength and range of motion, no pitting or edema. No cyanosis. NEUROLOGICAL: Moves all extremities upon command. Strength 5/5 in all extremities. PSYCH: Normal mood, normal affect. SKIN: Warm, dry. Biopsy site noted to left upper arm. Healing well. Course - Re-evaluation Re-evalutation: 04/25/20 Humerus x-ray is unremarkable. Capillary refill less than 3 seconds. Radial pulse 2+. No vascular compromise noted. C-spine CT shows no acute findings. CT of the head is within normal limits per the radiologist. Hematology shows a hemoglobin of 11.5, which is his normal. Coag studies are unremarkable. Chemi stry shows CO2 of 31. Urinalysis is unremarkable. Patient will follow up with his primary care provider. He is in agreement with this plan. No neurological deficits noted. Follow-up precautions were given. Verbal discharge instructions were given to the patient. They verbalized understanding. They are stable for discharge. - Vital Signs Vital signs: Temp Pulse Resp BP Pulse Ox 98.0 F 68 20 112/51 L 100 04/25/20 17:49 04/25/20 17:49 04/25/20 17:49 04/25/20 17:49 04/25/20 17:49 - Laboratory Result Diagrams: 04/25/20 14:00 04/25/20 14:00 Laboratory results interpreted by me: 04/25/20 04/25/20 14:00 14:00 RBC 3.73 L Hgb 11.5 L Hct 33.5 L Lymph % (Auto) 8.8 L Seg Neutrophils % 78.5 H Carbon Dioxide 31 H - EKG Interpretation by Me Additional EKG results interpreted by me: 04/25/20 Atrial placed with with a heart rate of 63. WI 136; QRS 132; QT 433; QTC 444. No ST elevations or depressions noted. No change from previous EKG done here in the emergency department. Discharge - Discharge Clinical Impression: Skin lesion Fall Qualifiers: Encounter type: initial encounter Qualified Code(s): W19.XXXA - Unspecified fall, initial encounter Condition: Stable Disposition: HOME, SELF-CARE Additional Instructions: You were seen today in emergency department for falls. Your CT of your head was normal. Take Tylenol 650 mg every 6 hours as needed for pain. Follow-up with your primary care provider in regards to this visit. If you have worsening symptoms, return to the emergency department immediately. Referrals: FRANK AGUILAR MD [Primary Care Provider] - Follow up tomorrow
[2020-04-25 17:50] VITALS: BP 112/51
--- NOTE | 2020-04-25 21:55 | EKG REPORT ---
SEVERITY:- ABNORMAL ECG - ATRIAL-SENSED VENTRICULAR-PACED RHYTHM : Confirmed by: Daniela Calderon 25-Apr-2020 21:54:44
== END 2020-04-25 17:48 | disposition home or self-care (01) ==
LOC: ER 12:15
DX: M79.621 Pain in right upper arm (principal); W19.XXXA Unspecified fall, initial encounter; L98.9 Disorder of the skin and subcutaneous tissue, unspecified; R26.81 Unsteadiness on feet; J44.9 Chronic obstructive pulmonary disease, unspecified; I10 Essential (primary) hypertension; I25.2 Old myocardial infarction; Z98.890 Other specified postprocedural states; Z79.02 Long term (current) use of antithrombotics/antiplatelets; Z79.82 Long term (current) use of aspirin; Z95.5 Presence of coronary angioplasty implant and graft; Z95.0 Presence of cardiac pacemaker; Z85.118 Personal history of other malignant neoplasm of bronchus and lung; Z88.6 Allergy status to analgesic agent; Z88.5 Allergy status to narcotic agent
CPT/HCPCS: 36415; 70450; 72125; 80053; 81001; 85025; 85610; 85730; 93005; 93010; 99285

== ENCOUNTER → 2020-05-30 | Outpatient (CLI) | payer MEDICARE, OTHER, BC ==
--- NOTE | 2020-05-30 15:25 | RADIOLOGY REPORT (SQ) ---
EXAM DESCRIPTION: SHOULDER RIGHT 2 OR MORE VIEWS IMAGES COMPLETED DATE/TIME: 05/30/2020 2:22 pm REASON FOR STUDY: RT SHOULDER PAIN FROM FALL COMPARISON: None. NUMBER OF VIEWS: Three views. TECHNIQUE: Internal rotation, external rotation, and Y view images acquired of the right shoulder. LIMITATIONS: None. FINDINGS: MINERALIZATION: Normal. BONES: No acute fracture. No worrisome bone lesions. JOINTS: No dislocation. VISUALIZED LUNGS AND RIBS: No pneumothorax. No rib fracture. SOFT TISSUES: No radiopaque foreign body. OTHER: No other significant finding. IMPRESSION: NO RADIOGRAPHIC EVIDENCE OF ACUTE INJURY. TECHNICAL DOCUMENTATION: JOB ID: [id number] 2010 [employer]- All Rights Reserved Reading location - IP/workstation name: [email or web address]
== END ==
LOC: RAD 13:59
PROVIDERS: ATTEND Radiology Radiation Oncology
DX: M25.511 Pain in right shoulder (principal)

== ENCOUNTER 2020-07-01 18:08 | Emergency (ER) | payer MEDICARE, OTHER ==
[2020-07-01] MEDS ORDERED: DIGOXIN INJ 0.5 MG/2 ML AMPULE IV ONE (18:19)
[2020-07-01 18:46] LABS: ABSOLUTE BASOPHILS # (AUTO) 0.1 10^3/uL (0.0-0.2); EOSINOPHILS % (AUTO) 0.2 % (0-6); RED BLOOD COUNT 4.12 10^6/uL (4.35-5.55); TOTAL CELLS COUNTED % (AUTO) 100 %
[2020-07-01 18:49] LABS: ABSOLUTE LYMPHOCYTES (AUTO) 0.6 10^3/uL (0.5-4.7); ABSOLUTE MONOCYTES (AUTO) 0.8 10^3/uL (0.1-1.4); ABSOLUTE NEUT (AUTO) 5.2 10^3/uL (1.7-8.2); BASOPHILS % (AUTO) 1.3 % (0-2); HEMATOCRIT 36.1 % (37.9-51.0); HEMOGLOBIN 12.4 g/dL (13.5-17.0); LYMPHOCYTES % (AUTO) 9.2 % (13-45); MEAN CORPUSCULAR HEMOGLOBIN 30.2 pg (27.0-33.4); MEAN CORPUSCULAR HGB CONC 34.4 g/dL (32.0-36.0); MEAN CORPUSCULAR VOLUME 88 fl (80-97); MONOCYTES % (AUTO) 11.6 % (3-13); PLATELET COUNT 367 10^3/uL (150-450); RED CELL DISTRIBUTION WIDTH 13.7 % (11.5-14.0); SEGMENTED NEUTROPHILS % (AUTO) 77.7 % (42-78); WHITE BLOOD COUNT 6.6 10^3/uL (4.0-10.5)
[2020-07-01 18:51] LABS: INTERNATIONAL RATION (INR) 1.15; PROTHROMBIN TIME 14.9 SEC (11.4-15.4)
--- NOTE | 2020-07-01 19:01 | RADIOLOGY REPORT (SQ) ---
EXAM DESCRIPTION: CHEST SINGLE VIEW IMAGES COMPLETED DATE/TIME: 07/01/2020 6:20 pm REASON FOR STUDY: t1 palpitations COMPARISON: 08/03/2019 EXAM PARAMETERS: NUMBER OF VIEWS: One view. TECHNIQUE: Single frontal radiographic view of the chest acquired. RADIATION DOSE: NA LIMITATIONS: None. FINDINGS: LUNGS AND PLEURA: Significant improvement in the appearance of the right and left lungs s carlos alberto the prior examination. Significant regression of the right upper lobe airspace and interstitial disease. Prominent right apical-upper lung fibrosis/scar. Chronic elevation of the right hemidiap hragm. Post surgical changes right upper lobe. Question of a nodular opacity in the left upper lung zone. No pneumothorax. MEDIASTINUM AND HILAR STRUCTURES: No masses. Contour normal. HEART AND VASCULAR STRUCTURES: Heart normal in size. Normal vasculature. BONES: No acute findings. HARDWARE: Right [id number]-D-Rxdf catheter, stable finding. Cardiac pacemaker/defibrillator. Stable pa rtially visualized hardware lower cervical spine. OTHER: No other significant finding. IMPRESSION: 1. Significant improvement in the appearance of the chest since the prior examination d ated to 08/03/2019. Marked interval regression of the right upper lobe airspace-interstitial disease and interstitial changes in the remaining lungs bilaterally. 2. Question of a spiculated nodular opacity in the left upper lung zone. TECHNICAL DOCUMENTATION: JOB ID: [id number] [employer]- All Rights Reserved Reading location - IP/workstation name: [email or web address]
[2020-07-01 19:16] LABS: ALBUMIN 4.3 g/dL (3.5-5.0); ALKALINE PHOSPHATASE 78 U/L (38-126); ANION GAP 15 (5-19); ASPARTATE AMINO TRANSFERASE 41 U/L (17-59); BILIRUBIN,DIRECT 0.4 mg/dL (0.0-0.4); BILIRUBIN,TOTAL 1.1 mg/dL (0.2-1.3); BLOOD UREA NITROGEN 37 mg/dL (7-20); CALCIUM 9.5 mg/dL (8.4-10.2); CARBON DIOXIDE 24 mmol/L (22-30); CHLORIDE 102 mmol/L (98-107); CREATINE KINASE 110 U/L (55-170); DIGOXIN 0.97 ng/mL (0.8-2.0); GLUCOSE 96 mg/dL (75-110); POTASSIUM 3.7 mmol/L (3.6-5.0); TOTAL PROTEIN 7.3 g/dL (6.3-8.2)
--- NOTE | 2020-07-01 19:17 | ER Document Report ---
Entered by KAREEM SERVIN SCRIBE 07/01/20 [id number] Acting as scribe for:KALEB REZA, DO ED General - General Stated Complaint: HEART RATE ISSUES Primary Care Provider: FRANK AGUILAR MD [Primary Care Provider] - Follow up as needed Mode of Arrival: Ambulatory Information source: Patient Notes: This 74-year-old male patient presents to the emergency department today with complaints of his defibrillator firing prior to arrival. He reports that he has not taken his digoxin in the last few days because he "does not take his medicine when he does not feel well". Patient states he has not felt well for the last few days but he is unable to describe what he means by not feeling well. He denies any fever or known COVID-19 exposure. TRAVEL OUTSIDE OF THE [place] IN LAST 30 DAYS: No - Related Data Allergies/Adverse Reactions: codeine [Codeine] Allergy (Severe, Verified 04/25/20 13:34) Chest pain Past Medical History - General Information source: Patient - Social History Smoking Status: Former Smoker Cigarette use (# per day): No Frequency of alcohol use: None Drug Abuse: None Lives with: Family Family History: Reviewed & Not Pertinent, CAD, COPD, Hypertension - Past Medical History Cardiac Medical History: Reports: Hx Heart Attack - 2005, STENTS X2, Hx Hypertension Pulmonary Medical History: Reports: Hx COPD, Hx Pneumonia Malignancy Medical History: Reports Hx Lung Cancer GI Medical History: Reports: Hx Gastroesophageal Reflux Disease Musculoskeletal Medical History: Reports Hx Arthritis - R SHOULDER Past Surgical History: Reports: Hx Cardiac Catheterization, Hx Coronary Stent - x3, Hx Orthopedic Surgery - back, NECK X 3, Hx Pacemaker - Immunizations Hx Diphtheria, Pertussis, Tetanus Vaccination: No Hx Pneumococcal Vaccination: 07/12/10 Review of Systems - Review of Systems Constitutional: denies: Fever EENT: No symptoms reported Cardiovascular: See HPI, Heart racing - Defibrillator fired Respiratory: No symptoms reported Gastrointestinal: No symptoms reported Genitourinary: No symptoms reported Male Genitourinary: No symptoms reported Musculoskeletal: No symptoms reported Skin: No symptoms reported Hematologic/Lymphatic: No symptoms reported Neurological/Psychological: No symptoms reported -: Yes All other systems reviewed and negative Physical Exam - Vital signs Vitals: Pulse Ox 99 07/01/20 18:11 - Notes Notes: Physical Exam: General: Alert, appears frail and elderly. HEENT: Normocephalic. Atraumatic. PERRL. Extraocular movements intact. Oropharynx clear. Neck: Supple. Non-tender. Respiratory: No respiratory distress. Diminished in the bases bilaterally. Cardiovascular: Tachycardic, irregularly irregular. Abdominal: Normal Inspection. Non-tender. No distension. Normal Bowel Sounds. Back: No gross abnormalities. Extremities: Moves all four extremities. Upper extremities: Normal inspection. Normal ROM. Lower extremities: Normal inspection. No edema. Normal ROM. Neurological: Normal cognition. AAOx4. Normal speech. Psychological: Normal affect. Normal Mood. Skin: Warm. Dry. Normal color. Course - Re-evaluation Re-evalutation: 07/01/20 22:55 MDM 74 year old male arrives with complaints of heart racing at home and feeling of AICD shock prior to arrival. Has a fib history and cad with a single stent. No fever and no chest pain. Interogation of device was accomplished and he ran close to 190 for a period of time all atrial generated with no repor titus or recorded shock. Trop up 5 X here and discussed and reccomended admit. He will not stay understanding risk - morbidity and mortality and instead will call blender helper in the am. He understands return precautions. 07/01/20 23:02 Watched here for several hours on portable trackman and hr is sinus mostly with occaional a fib. No sig - >120 tachycardia for hours here. He has capacity and want to be with his . We will assist with transportation home. - Vital Signs Vital signs: Temp Pulse Resp BP Pulse Ox 97.4 F 98 16 139/81 H 97 07/01/20 23:35 07/01/20 23:35 07/01/20 23:35 07/01/20 23:35 07/01/20 23:35 - Laboratory Results Result Diagrams: 07/01/20 18:23 07/01/20 18:23 Laboratory Results Interpreted: 07/01/20 07/01/20 07/01/20 18:23 18:23 18:23 RBC 4.12 L Hgb 12.4 L Hct 36.1 L Lymph % (Auto) 9.2 L BUN 37 H Creatinine 1.33 H Est GFR (MDRD) Non-Af 53 L TSH 5.46 H Critical Laboratory Results Reviewed: Yes Attending or Supervising Physician who Reviewed Labs: KALEB REZA P - Radiology Results Critical Radiology Results Reviewed: No Critical Results - EKG Interpretation by Me Rate: Tachycardia Rhythm: A.Fib, A.Flutter - A fib flutter with underlying pacer. Repolarization abnormality. No st elevation or depression. Discharge - Discharge Clinical Impression: Atrial fibrillation and flutter, Non-STEMI (non-ST elevated myocardial infarction) Condition: Stable Disposition: AGAINST MEDICAL ADVICE Instructions: Atrial Fibrillation ([facility]), Digitalis ([facility]) Additional Instructions: Call your blender helper in the morning as discussed. Please return here immediately for chest pain, shortness of breath or other problems or concerns. Take your medicines as directed including your digitalis and anticoagulation medicine. Referrals: FRANK AGUILAR MD [Primary Care Provider] - Follow up as needed I personally performed the services described in the documentation, reviewed and edited the documentation which was dictated to the scribe in my presence, and it accurately records my words and actions.
[2020-07-01 19:37] LABS: CREATINE KINASE MB 2.3 ng/mL (<4.55)
[2020-07-01 19:53] LABS: TROPONIN I 0.056 ng/mL
[2020-07-01] MEDS ORDERED: ASPIRIN 81 MG TABLET, CHEWABLE PO ONE (23:04)
[2020-07-01 23:53] VITALS: BP 139/81
--- NOTE | 2020-07-02 12:29 | EKG REPORT ---
SEVERITY:- ABNORMAL ECG - A-V DUAL-PACED COMPLEXES W/ SOME INHIBITION SINUS TACHYCARDIA WITH PACS AND ATRIAL -VENTRICULAR PACING : Confirmed by: Ananth Dodge MD 02-Jul-2020 12:29:12
== END 2020-07-01 23:40 | disposition left against medical advice (07) ==
LOC: ER 18:08
DX: I21.4 Non-ST elevation (NSTEMI) myocardial infarction (principal); I48.91 Unspecified atrial fibrillation; Z95.810 Presence of automatic (implantable) cardiac defibrillator; I25.2 Old myocardial infarction
CPT/HCPCS: 93005; 99285; 36415; 82553; 82550; 80162; 83735; 84443; 85025; 85610; 80053; 84484; 71045; 93010; A9270